=== PATIENT | male | born 1950 | race Caucasian/White ===

== ENCOUNTER 2016-10-25 11:14 | Emergency (ER) | payer OTHER ==
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
[2016-10-25 12:48] VITALS: BP 179/94; PULSE 97; RESP 18; TEMP 97.7
== END 2016-10-25 13:04 | disposition home or self-care (01) ==
LOC: EC 11:14
DX: S00.12XA Contusion of left eyelid and periocular area, initial encounter (principal); S09.90XA Unspecified injury of head, initial encounter; H11.32 Conjunctival hemorrhage, left eye; I10 Essential (primary) hypertension; N40.0 Benign prostatic hyperplasia without lower urinary tract symptoms; F17.200 Nicotine dependence, unspecified, uncomplicated; Y09 Assault by unspecified means; Z86.14 Personal history of Methicillin resistant Staphylococcus aureus infection; Z79.899 Other long term (current) drug therapy; Z88.0 Allergy status to penicillin; Z87.442 Personal history of urinary calculi
CPT/HCPCS: 70450; 70486; 99284

== ENCOUNTER 2016-12-25 09:25 | Observation (INO) | payer OTHER ==
[2016-12-25] MEDS ORDERED: PANTOPRAZOLE 40 MG/10 ML VIAL IVP STA (10:12)
[2016-12-25] MEDS ORDERED: SODIUM CHLORIDE 0.9% 1,000 ML IV STA (10:12)
--- NOTE | 2016-12-25 10:16 | ED ---
GI Bleed HPI - General Chief complaint: GI Bleed Stated complaint: Rectal Bleed Time Seen by Provider: 12/25/16 10:00 Source: patient, RN notes reviewed Mode of arrival: ambulatory Limitations: no limitations - History of Present Illness Initial comments: This is a 66-year-old male with a history of diverticulitis in the past who states he had the onset this morning of 6 episodes of what he believes to be dark red bloody bowel movements. States he was recently constipated took some laxative and had a small amount of blood after that this is earlier in the week. He complains of nonspecific abdominal pain he does have a urinary catheter in his he does have prostatism and has had a catheter in for about a month she's not sure if this is related or not. He denies any overt lightheadedness and shortness of breath dizziness. He was concerned with the amount of blood however that he was passing. No history of ulcers no blood thinners. No other complaints MD complaint: gross hematochezia - Related Data Home Medications Medication Instructions Recorded Confirmed Acetaminophen Tab [Tylenol Tab] 500 mg PO Q6H PRN 10/25/16 12/25/16 Tamsulosin HCl [Flomax] 0.4 mg PO HS 10/25/16 12/25/16 Lisinopril [Zestril] 10 mg PO HS 12/25/16 12/25/16 Allergies Allergy/AdvReac Type Severity Reaction Status Date / Time Penicillins Allergy Unknown Verified 12/25/16 10:57 Childhood Review of Systems ROS Statement: Those systems with pertinent positive or pertinent negative responses have been documented in the HPI. ROS Other: All systems not noted in ROS Statement are negative. Past Medical History Past Medical History: Hypertension, Prostate Disorder, Renal Disease Additional Past Medical History / Comment(s): nephrolithiasis, BPH, chronic back pain, DDD, heniated discs. History of Any Multi-Drug Resistant Organisms: MRSA Date of last positivie culture/infection: 03/15/16 MDRO Source:: right first finger Past Surgical History: Tonsillectomy Additional Past Surgical History / Comment(s): colonoscopy with benign polypectomies, TESTICLE SURGERY AT AGE 14 Past Anesthesia/Blood Transfusion Reactions: No Reported Reaction Past Psychological History: No Psychological Hx Reported Additional Psychological History / Comment(s): Pt resides with a friend. He is independent. He drives. 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 Pet cat. Did not relate to children. Medical marijuana use. Denies injection drug use or other recreational drug use. No travel history Smoking Status: Current some day smoker Past Alcohol Use History: None Reported Additional Past Alcohol Use History / Comment(s): Pt states he casually smoked yrs ago. Past Drug Use History: Marijuana Additional Drug Use History / Comment(s): Pt states he has a medical marijuana card. He smokes marijuana in a pipe daily for pain control. - Past Family History Father Family Medical History: Cancer, Coronary Artery Disease (CAD) Additional Family Medical History / Comment(s): Father is 87 yrs old. Mother Family Medical History: Liver Disease Additional Family Medical History / Comment(s): Mother at 56 yrs of age from liver disease which pt believes was cirrhosis. General Exam - General Exam Comments Initial Comments: This is a well-developed well-nourished awake alert oriented 3 male Limitations: no limitations General appearance: alert, in no apparent distress Head exam: Present: atraumatic, normocephalic, normal inspection Eye exam: Present: normal appearance, PERRL, EOMI. Absent: scleral icterus, conjunctival injection, periorbital swelling ENT exam: Present: normal exam, mucous membranes moist Neck exam: Present: normal inspection. Absent: tenderness, meningismus, lymphadenopathy Respiratory exam: Present: normal lung sounds bilaterally. Absent: respiratory distress, wheezes, rales, rhonchi, stridor Cardiovascular Exam: Present: regular rate, normal rhythm, normal heart sounds. Absent: systolic murmur, diastolic murmur, rubs, gallop, clicks GI/Abdominal exam: Present: soft, tenderness (Right lower quadrant tenderness palpation no definite guarding or rebound), normal bowel sounds. Absent: distended, guarding, rebound, rigid Extremities exam: Present: normal inspection, full ROM, normal capillary refill. Absent: tenderness, pedal edema, joint swelling, calf tenderness Back exam: Present: normal inspection Neurological exam: Present: alert, oriented X3, CN II-XII intact Psychiatric exam: Present: normal affect, normal mood Skin exam: Present: warm, dry, intact, normal color. Absent: rash Course Vital Signs 12/25/16 12/25/16 09:50 11:43 Temperature 99.4 F Pulse Rate 95 74 Respiratory 20 16 Rate Blood Pressure 154/92 159/99 O2 Sat by Pulse 98 98 Oximetry - Reevaluation(s) Reevaluation #1: 12/25/16 14:52 I did perform a rectal exam with female nurse present. Patient does have heme positive blood from below. Medical Decision Making - Medical Decision Making I did discuss findings with the patient the presentation blood per rectum is likely secondary to colitis he does have evidence of prostate cancer the patient will be admitted for inpatient evaluation and monitoring. - Lab Data Result diagrams: 12/25/16 10:38 12/25/16 10:38 Lab Results 12/25/16 12/25/16 12/25/16 Range/Units 10:38 10:38 10:38 WBC 5.8 (3.8-10.6) k/uL RBC 4.95 (4.30-5.90) m/uL Hgb 16.5 (13.0-17.5) gm/dL Hct 46.4 (39.0-53.0) % MCV 93.7 (80.0-100.0) fL MCH 33.4 (25.0-35.0) pg MCHC 35.6 (31.0-37.0) g/dL RDW 12.5 (11.5-15.5) % Plt Count 228 (150-450) k/uL Neutrophils % 53 % Lymphocytes % 36 % Monocytes % 7 % Eosinophils % 1 % Basophils % 1 % Neutrophils # 3.0 (1.3-7.7) k/uL Lymphocytes # 2.1 (1.0-4.8) k/uL Monocytes # 0.4 (0-1.0) k/uL Eosinophils # 0.1 (0-0.7) k/uL Basophils # 0.1 (0-0.2) k/uL PT (9.0-12.0) sec INR (<1.1) APTT (22.0-30.0) sec Sodium 144 (137-145) mmol/L Potassium 4.5 (3.5-5.1) mmol/L Chloride 106 (98-107) mmol/L Carbon Dioxide 25 (22-30) mmol/L Anion Gap 13 mmol/L BUN 14 (9-20) mg/dL Creatinine 0.82 (0.66-1.25) mg/dL Est GFR (MDRD) Af Amer >60 (>60 ml/min/1.73 sqM) Est GFR (MDRD) Non-Af >60 (>60 ml/min/1.73 sqM) Glucose 98 (74-99) mg/dL Calcium 9.8 (8.4-10.2) mg/dL Magnesium 2.1 (1.6-2.3) mg/dL Total Bilirubin 0.7 (0.2-1.3) mg/dL AST 19 (17-59) U/L ALT 25 (21-72) U/L Alkaline Phosphatase 86 (38-126) U/L Total Creatine Kinase 96 (55-170) U/L CK-MB (CK-2) 0.9 (0.0-2.4) ng/mL CK-MB (CK-2) Rel Index 0.9 Troponin I <0.012 (0.000-0.034) ng/mL Total Protein 7.6 (6.3-8.2) g/dL Albumin 4.5 (3.5-5.0) g/dL Lipase 416 H (23-300) U/L Stool Occult Blood (Negative) Blood Type Blood Type Confirm Blood Type Recheck Antibody Screen Spec Expiration Date 12/25/16 12/25/16 12/25/16 Range/Units 10:38 10:38 12:23 WBC (3.8-10.6) k/uL RBC (4.30-5.90) m/uL Hgb (13.0-17.5) gm/dL Hct (39.0-53.0) % MCV (80.0-100.0) fL MCH (25.0-35.0) pg MCHC (31.0-37.0) g/dL RDW (11.5-15.5) % Plt Count (150-450) k/uL Neutrophils % % Lymphocytes % % Monocytes % % Eosinophils % % Basophils % % Neutrophils # (1.3-7.7) k/uL Lymphocytes # (1.0-4.8) k/uL Monocytes # (0-1.0) k/uL Eosinophils # (0-0.7) k/uL Basophils # (0-0.2) k/uL PT 10.3 (9.0-12.0) sec INR 1.0 (<1.1) APTT 25.2 (22.0-30.0) sec Sodium (137-145) mmol/L Potassium (3.5-5.1) mmol/L Chloride (98-107) mmol/L Carbon Dioxide (22-30) mmol/L Anion Gap mmol/L BUN (9-20) mg/dL Creatinine (0.66-1.25) mg/dL Est GFR (MDRD) Af Amer (>60 ml/min/1.73 sqM) Est GFR (MDRD) Non-Af (>60 ml/min/1.73 sqM) Glucose (74-99) mg/dL Calcium (8.4-10.2) mg/dL Magnesium (1.6-2.3) mg/dL Total Bilirubin (0.2-1.3) mg/dL AST (17-59) U/L ALT (21-72) U/L Alkaline Phosphatase (38-126) U/L Total Creatine Kinase (55-170) U/L CK-MB (CK-2) (0.0-2.4) ng/mL CK-MB (CK-2) Rel Index Troponin I (0.000-0.034) ng/mL Total Protein (6.3-8.2) g/dL Albumin (3.5-5.0) g/dL Lipase (23-300) U/L Stool Occult Blood Positive (Negative) Blood Type B Positive Blood Type Confirm Blood Type Recheck CABO Indicated Antibody Screen NEGATIVE Spec Expiration Date 12/28/2016 - 233712/25/16 Range/Units 13:50 WBC (3.8-10.6) k/uL RBC (4.30-5.90) m/uL Hgb (13.0-17.5) gm/dL Hct (39.0-53.0) % MCV (80.0-100.0) fL MCH (25.0-35.0) pg MCHC (31.0-37.0) g/dL RDW (11.5-15.5) % Plt Count (150-450) k/uL Neutrophils % % Lymphocytes % % Monocytes % % Eosinophils % % Basophils % % Neutrophils # (1.3-7.7) k/uL Lymphocytes # (1.0-4.8) k/uL Monocytes # (0-1.0) k/uL Eosinophils # (0-0.7) k/uL Basophils # (0-0.2) k/uL PT (9.0-12.0) sec INR (<1.1) APTT (22.0-30.0) sec Sodium (137-145) mmol/L Potassium (3.5-5.1) mmol/L Chloride (98-107) mmol/L Carbon Dioxide (22-30) mmol/L Anion Gap mmol/L BUN (9-20) mg/dL Creatinine (0.66-1.25) mg/dL Est GFR (MDRD) Af Amer (>60 ml/min/1.73 sqM) Est GFR (MDRD) Non-Af (>60 ml/min/1.73 sqM) Glucose (74-99) mg/dL Calcium (8.4-10.2) mg/dL Magnesium (1.6-2.3) mg/dL Total Bilirubin (0.2-1.3) mg/dL AST (17-59) U/L ALT (21-72) U/L Alkaline Phosphatase (38-126) U/L Total Creatine Kinase (55-170) U/L CK-MB (CK-2) (0.0-2.4) ng/mL CK-MB (CK-2) Rel Index Troponin I (0.000-0.034) ng/mL Total Protein (6.3-8.2) g/dL Albumin (3.5-5.0) g/dL Lipase (23-300) U/L Stool Occult Blood (Negative) Blood Type Blood Type Confirm B Positive Blood Type Recheck Antibody Screen Spec Expiration Date - Radiology Data Radiology results: report reviewed (The sigmoid is thickened), image reviewed Disposition Clinical Impression: Hematochezia, GI bleed, Prostate cancer, Abdominal pain, Colitis Disposition: ADMITTED IP TO THIS [facility] Condition: Stable Referrals: None,Stated [Primary Care Provider] - 1-2 days
[2016-12-25 11:04] LABS: Basophils # (A) 0.1 k/uL (0-0.2); Basophils % (A) 1 %; CH 33.3; CHCM 35.7; Eosinophils # (A) 0.1 k/uL (0-0.7); Eosinophils % (A) 1 %; HCT 46.4 % (39.0-53.0); HDW 2.58; HGB 16.5 gm/dL (13.0-17.5); Luc # (Auto) 0.16; Luc % (Auto) 3; Lymphocytes # (A) 2.1 k/uL (1.0-4.8); Lymphocytes % (A) 36 %; MCH 33.4 pg (25.0-35.0); MCHC 35.6 g/dL (31.0-37.0); MCV 93.7 fL (80.0-100.0); Monocytes # (A) 0.4 k/uL (0-1.0); Monocytes % (A) 7 %; Neutrophils % (A) 53 %; RBC 4.95 m/uL (4.30-5.90); RDW 12.5 % (11.5-15.5); WBC 5.8 k/uL (3.8-10.6); WBC (Perox) 5.38
[2016-12-25 11:06] LABS: ALT 25 U/L (21-72); AST 19 U/L (17-59); Alkaline Phosphatase 86 U/L (38-126); Anion Gap 13 mmol/L; Blood Urea Nitrogen 14 mg/dL (9-20); Calcium 9.8 mg/dL (8.4-10.2); Carbon Dioxide 25 mmol/L (22-30); Chloride 106 mmol/L (98-107); Glucose 98 mg/dL (74-99); Magnesium 2.1 mg/dL (1.6-2.3); Non-African American GFR(MDRD) >60 (>60 ml/min/1.73 sqM); Potassium 4.5 mmol/L (3.5-5.1); Sodium 144 mmol/L (137-145); Total Bilirubin 0.7 mg/dL (0.2-1.3); Total Protein 7.6 g/dL (6.3-8.2)
[2016-12-25 11:16] LABS: Partial Thromboplastin Time 25.2 sec (22.0-30.0); Prothrombin Time 10.3 sec (9.0-12.0)
[2016-12-25 11:17] LABS: Creatine Kinase 96 U/L (55-170)
--- NOTE | 2016-12-25 11:20 | XR ---
EXAMINATION TYPE: XR abdomen acute w cxr DATE OF EXAM: 12/25/2016 11:08 AM COMPARISON: NONE HISTORY: Rectal bleeding TECHNIQUE: Two views of the abdomen and one view of the chest are obtained. FINDINGS: There 3 calcifications overlying the left kidney the largest measuring 5 mm. 4 calcifications overlyi ng the right kidney the largest measuring 3 mm. Hypertrophic change lower lumbar spine. Nonspecific calcifications in the pelvis. Calcification overlying the right sacrum is nonspecific. The bowel gas pattern is unremarkable as there is air throughout nondilated small and large bowel. No sizeable air fluid levels. IMPRESSION: Bilateral nephrolithiasis
[2016-12-25 11:30] LABS: Creatine Kinase MB 0.9 ng/mL (0.0-2.4); Troponin I <0.012 ng/mL (0.000-0.034)
--- NOTE | 2016-12-25 13:23 | CT ---
EXAMINATION TYPE: CT abdomen pelvis wo con DATE OF EXAM: 12/25/2016 12:48 PM COMPARISON: 03/26/2016 HISTORY: 66-year-old male Rectal bleeding and generalized pain CT DLP: 600.6 mGycm. Automated exposure control for dose reduction was used. TECHNIQUE: Contiguous axial scanning of the abdomen and pelvis without IV contrast. Coronal and sagit kyle reconstructions performed. FINDINGS: The heart is normal size without pericardial effusion. Coronary vessel calcifications are present and are remarkable for coronary artery disease. Some strandy atelectasis or scarring in the inferior lingula. Lung bases otherwise clear without pleu ral effusion. Stable 2.8 cm cyst right hepatic dome. Gallbladder, adrenal glands, spleen, and pancreas show no gross abnormality. Cysts are redemonstrated within both kidneys, largest measuring 5.8 cm on the right and 3.1 cm on the left. Also redemonstrated bilateral nonobstructive nephrolithiasis with numerous calculi measuring u p to 4 to 5 mm on the right and up to 6 mm on the left. No hydronephrosis or suspicious calculus in t he urinary tract. No dilated small bowel, free fluid, or free air. No mesenteric or retroperitoneal lymphadenopathy. Tiny fatty umbilical hernia. Normal appendix. There is mild stool burden with left hemicolonic diverticulosis. There is some mild wall thickening of the mid sigmoid colon similar prior without any surrounding inflammatory change, s uspected chronic diverticulitis. There is moderate wall thickening of the collapsed bladder with mild perivesicular fat stranding. Dep endent calculi are present in the bladder lumen measuring up to 1 cm. Zayas catheter is in place. The Zayas catheter tubing is displaced towards the right along the prostatic urethra pelvic phleboliths. 8 mm nodularity along the left obturator chain was present previously and is unchanged. No greater th an 1 cm pelvic lymph node. However, a 1 cm right iliac chain lymph node axial image 117 is larger fro m prior where it measured 6 mm. Bones: Mild degenerative changes at the hips. Additional degenerative changes at the SI joints and lo wer lumbar spine. No osseous destructive process. IMPRESSION: 1. Prostate cancer is highly suspected with mass effect and rightward deviation of the Zayas cathete r as it courses along the prostatic urethra. 2. Nonspecific 8 mm nodular density along the left obturator chain was present previously and is sta ble. However, a 1 cm right iliac chain lymph node is larger compared to 6 mm, previously. 3. Stable sigmoid diverticulosis with mild wall thickening of the mid sigmoid colon. No significant surrounding inflammation. Findings can be seen with chronic diverticulitis. 4. Bilateral nephrolithiasis measuring up to 6 mm as well as bilateral renal cysts. Additional bladd er calculi measuring up to 1 cm. 5. Circumferential wall thickening of the bladder could represent cystitis or bladder wall hypertrop hy from chronic outlet obstruction. 6. 3 cm AAA.
[2016-12-25] MEDS ORDERED: NALOXONE 0.4 MG/ML 1 ML VIAL IV PRN (14:54)
[2016-12-25] MEDS: SODIUM CHLORIDE 0.9% 1,000 ML IV SCH (17:47)
[2016-12-25] MEDS: HYDROmorphone 1 MG/ML 1 ML SYRINGE IV PRN (21:07)
[2016-12-25] MEDS: PANTOPRAZOLE 40 MG/10 ML VIAL IV SCH (21:08)
[2016-12-25] MEDS ORDERED: TEMAZEPAM 15 MG CAP PO PRN (21:35)
[2016-12-25] MEDS ORDERED: ALPRAZolam 0.25 MG TAB PO PRN (21:35)
[2016-12-25] MEDS ORDERED: HYDROcodone/APAP 5-325MG 1 EACH TAB PO PRN (21:35)
[2016-12-25] MEDS: LISINOPRIL 10 MG TAB PO SCH (23:04)
[2016-12-25] MEDS: TAMSULOSIN 0.4 MG CAP.ER.24H PO SCH (23:04)
[2016-12-25 23:13] LABS: Appearance,Urine Cloudy (Clear); Bacteria,Urine Occasional /hpf; Bilirubin,Urine Negative (Negative); Glucose,Urine (UA) Negative (Negative); Ketones,Urine Negative (Negative); Leukocyte Esterase,Urine Large (Negative); Nitrite,Urine Positive (Negative); PH, Urine 6.5 (5.0-8.0); Particle Count 14215; Protein,Urine Negative (Negative); RBC,Urine 2 /hpf (0-5); Specific Gravity,Urine 1.009 (1.001-1.035); UA Billing (MACRO vs. MICRO) MICRO; Urobilinogen,Urine <2.0 mg/dL (<2.0); WBC,Urine 87 /hpf (0-5)
--- NOTE | 2016-12-26 05:26 | HP ---
DATE OF ADMISSION: CHIEF COMPLAINT: Gastrointestinal bleed. HISTORY OF PRESENT ILLNESS: This 66-year-old gentleman with a past medical history of multiple medical problems including hypertension, history of prostate disorder, history of BPH, history of MRSA being followed by no primary physician in outpatient setting, was noted to have GI bleed since last night. The patient had at least 6 episodes of dark maroon colored bowel movements and recently was constipated and took some laxatives. The patient also had some vague abdominal discomfort in the lower part of the abdomen and the patient came to [facility] and was admitted for further evaluation and treatment. There is no history of any fever, rigor, or chills. No history of headache, loss of consciousness or seizures. The patient also had a CAT scan of the abdomen showed possible prostate cancer with mass effect and as well as nodular density in left obturator chain, stable sigmoid diverticulosis, bilateral nephrolithiasis and circumferential thickening of the bladder also and a 3 cm abdominal aortic aneurysm. The patient attends a free clinic in [place]. PAST MEDICAL HISTORY: History of hypertension, history of prostate disorder, BPH, history DJD, MRSA abscess. Medications prior to admission home medications are: 1. Tylenol 500 mg q.6 p.r.n. 2. Flomax 0.4 q.h.s. 3. Zestril 10 mg p.o. q.h.s. The allergies are PENICILLIN. FAMILY HISTORY: History of cancer, CAD. SOCIAL HISTORY: History of THC, history of smoking . Patient . REVIEW OF SYSTEMS: ENT: No history of diminished hearing or vision. CARDIOVASCULAR: No angina or palpitations. RESPIRATORY: No cough. GI: As mentioned earlier. : As mentioned earlier. NERVOUS SYSTEM: No numbness or weakness. ALLERGY/IMMUNOLOGY: No asthma or hayfever. MUSCULOSKELETAL: As mentioned earlier. HEMATOLOGY/ONCOLOGY: No history of anemia. ENDOCRINE: No history of diabetes mellitus or hypothyroidism. CONSTITUTIONAL: As mentioned earlier. DERMATOLOGY: Negative. RHEUMATOLOGY: Negative. PSYCHIATRY: As mentioned earlier. PHYSICAL EXAMINATION: The patient is alert and oriented x3. Pulse is 77, blood pressure 161/88, respirations 18, temperature 97 degrees and pulse ox is 99% on room air. HEENT: Conjunctivae normal. Oral mucosa moist. NECK: No jugular venous distention. No carotid bruit. No lymph node enlargement. CARDIOVASCULAR: S1 and S2, muffled. No S3, no S4. RESPIRATORY: Breath sounds diminished at the bases. No rhonchi, no crackles. ABDOMEN: Soft, nontender. No mass palpable. LEGS: No edema, no swelling. NERVOUS SYSTEM: Higher function as mentioned. Moves all 4 limbs. No focal motor or sensory deficits. LYMPHATICS: No lymphadenopathy of neck, axillae or groin. SKIN: No ulcers, rashes or bleeding. LABS: WBC 5.8, hemoglobin 16.5. Amylase 113 and lipase 416. ASSESSMENT: 1. Acute lower gastrointestinal bleeding for evaluation. 2. Rule out prostate cancer. 3. Increased amylase, lipase, possible mild acute pancreatitis. 4. Sigmoid diverticulosis on the CAT scan. 5. Bilateral nephrolithiasis on the CAT scan. 6. A 3 cm abdominal aortic aneurysm on the CAT scan. 7. Hypertension, essential. 8. History of prostate disorder. 9. History of nephrolithiasis. 10. History of chronic back pain, degenerative joint disease. 11. History of methicillin-resistant Staphylococcus aureus and abscess. 12. History of nicotine dependence. 13. History of THC, medical marijuana. 14. FULL CODE. RECOMMENDATIONS AND DISCUSSION: In this 66-year-old gentleman who presented with multiple complex medical issues, we will monitor the patient closely. Continue the current medications. Continue symptomatic treatment. Will monitor H&H closely and watch for any significant bleeding monitor and if the hemoglobin is less will arrange transfusion. Otherwise, gastroenterology consultation for possible colonoscopy. Urology consultation for evaluation of the prostate cancer. Prognosis guarded because of multiple complex medical issues. I would recommend to resume the home medications and further recommendations to follow. MTDD
--- NOTE | 2016-12-26 06:35 | P.GSCN ---
History of Present Illness Consult date: 12/25/16 Reason for Consult: Elevated PSA Requesting physician: Jeffrey Helms History of present illness: The patient is a 65-year-old white male who has taken tamsulosin for quite some time for LUTS. He was initially seen by me in late November with urinary retention. He failed a voiding trial, and a CMG has shown detrusor recompensation. The Zayas remains in place. EMMA reveals the prostate to be irregular and nodular, and his PSA level is 86.6. This is highly suggestive of locally advanced prostate cancer. He is now admitted with bloody stools. Review of Systems - Cardiovascular Reports high blood pressure, Denies chest pain - Respiratory Denies dyspnea - Gastrointestinal Reports hematochezia - Genitourinary Reports urinary retention - Musculoskeletal Reports low back pain Past Medical History Past Medical History: Hypertension, Prostate Disorder Additional Past Medical History / Comment(s): nephrolithiasis, BPH, chronic back pain, DDD, heniated discs ,03/15/16 RT THUMB ABCESS(MRSA).UTI, "IDC PLACED " History of Any Multi-Drug Resistant Organisms: MRSA Year Discovered:: 03/15/16 MDRO Source:: right first finger Past Surgical History: Tonsillectomy Additional Past Surgical History / Comment(s): colonoscopy with benign polypectomies, TESTICLE SURGERY AT AGE 14, i&d/DEBRIDMENT OF RT THUMB ABCESS, PICC LINE SINCE REMOVED Past Anesthesia/Blood Transfusion Reactions: No Reported Reaction Past Psychological History: No Psychological Hx Reported Additional Psychological History / Comment(s): Pt is legally but ,resides with a friend. He is independent. He drives. 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 Pet cat. Did not relate to children. Medical marijuana use. Denies injection drug use or other recreational drug use. No travel history Smoking Status: Current some day smoker Past Alcohol Use History: None Reported Additional Past Alcohol Use History / Comment(s): Pt smoked cig cassually from age 32 to 42. smokes marijuana -last used this am Past Drug Use History: Marijuana Additional Drug Use History / Comment(s): Pt states he has a medical marijuana card. He smokes marijuana in a pipe daily for pain control. - Past Family History Father Family Medical History: Cancer, Coronary Artery Disease (CAD) Additional Family Medical History / Comment(s): Father is 87 yrs old. Mother Family Medical History: Liver Disease Additional Family Medical History / Comment(s): Mother at 56 yrs of age from liver disease which pt believes was cirrhosis. Medications and Allergies Home Medications Medication Instructions Recorded Confirmed Type Acetaminophen Tab [Tylenol Tab] 500 mg PO Q6H PRN 10/25/16 12/25/16 History Tamsulosin HCl [Flomax] 0.4 mg PO HS 10/25/16 12/25/16 History Lisinopril [Zestril] 10 mg PO HS 12/25/16 12/25/16 History Allergies Allergy/AdvReac Type Severity Reaction Status Date / Time Penicillins Allergy Unknown Verified 12/25/16 10:57 Childhood Surgical - Exam Vital Signs Temp Pulse Resp BP Pulse Ox 99.4 F 95 20 154/92 98 12/25/16 09:50 12/25/16 09:50 12/25/16 09:50 12/25/16 09:50 12/25/16 09:50 - General well developed, well nourished, no distress - Abdomen Abdomen: soft, tender (Suprapubic tenderness), no masses, no guarding, no rigid , no rebound - Genitourinary normal penis with no external lesions, testicles non-tender - Psychiatric oriented to time, oriented to person, oriented to place, speech is normal, memory intact Results - Labs 12/25/16 10:38 12/25/16 10:38 Abnormal Lab Results - Last 24 Hours (Table) 12/25/16 12/25/16 Range/Units 10:38 10:38 Amylase 113 H (30-110) U/L Lipase 416 H (23-300) U/L Diabetes panel 12/25/16 Range/Units 10:38 Sodium 144 (137-145) mmol/L Potassium 4.5 (3.5-5.1) mmol/L Chloride 106 (98-107) mmol/L Carbon Dioxide 25 (22-30) mmol/L BUN 14 (9-20) mg/dL Creatinine 0.82 (0.66-1.25) mg/dL Glucose 98 (74-99) mg/dL Calcium 9.8 (8.4-10.2) mg/dL AST 19 (17-59) U/L ALT 25 (21-72) U/L Alkaline Phosphatase 86 (38-126) U/L Total Protein 7.6 (6.3-8.2) g/dL Albumin 4.5 (3.5-5.0) g/dL Calcium panel 12/25/16 Range/Units 10:38 Calcium 9.8 (8.4-10.2) mg/dL Albumin 4.5 (3.5-5.0) g/dL Pituitary panel 12/25/16 Range/Units 10:38 Sodium 144 (137-145) mmol/L Potassium 4.5 (3.5-5.1) mmol/L Chloride 106 (98-107) mmol/L Carbon Dioxide 25 (22-30) mmol/L BUN 14 (9-20) mg/dL Creatinine 0.82 (0.66-1.25) mg/dL Glucose 98 (74-99) mg/dL Calcium 9.8 (8.4-10.2) mg/dL Adrenal panel 12/25/16 Range/Units 10:38 Sodium 144 (137-145) mmol/L Potassium 4.5 (3.5-5.1) mmol/L Chloride 106 (98-107) mmol/L Carbon Dioxide 25 (22-30) mmol/L BUN 14 (9-20) mg/dL Creatinine 0.82 (0.66-1.25) mg/dL Glucose 98 (74-99) mg/dL Calcium 9.8 (8.4-10.2) mg/dL Total Bilirubin 0.7 (0.2-1.3) mg/dL AST 19 (17-59) U/L ALT 25 (21-72) U/L Alkaline Phosphatase 86 (38-126) U/L Total Protein 7.6 (6.3-8.2) g/dL Albumin 4.5 (3.5-5.0) g/dL Assessment and Plan (1) Elevated prostate specific antigen (PSA) Status: Acute Plan: The patient is a 66-year-old white male who recently presented with urinary retention. EMMA revealed the prostate to be hard and nodular, and his PSA level was found to be 86.6. He is being scheduled to undergo prostate ultrasound with biopsies in the office, but I would suggest that this be performed during this hospitalization if possible to expedite the anticipated diagnosis of prostate cancer. If he is confirmed to have prostate cancer, a CT scan of the pelvis and a bone scan will be obtained for staging purposes.
[2016-12-26] MEDS: HYDROmorphone 1 MG/ML 1 ML SYRINGE IV PRN ×3 (06:47→23:27)
[2016-12-26] MEDS: PANTOPRAZOLE 40 MG/10 ML VIAL IV SCH ×2 (07:46→19:52)
[2016-12-26] MEDS: SODIUM CHLORIDE 0.9% 1,000 ML IV SCH (07:46)
--- NOTE | 2016-12-26 09:53 | P.CONS ---
History of Present Illness - Reason for Consult Consult date: 12/26/16 Rectal bleeding GI bleed Requesting physician: Jeffrey Helms - History of Present Illness 66-year-old gentleman with a history of urinary retention with indwelling catheter presents with elevated PSA (86.6 )and painless rectal bleeding. Patient is been evaluated by urology with suspicion for locally advanced prostate carcinoma with recommendations for prostate ultrasound/biopsy. CT abdomen and pelvis reported highly suspected prostate cancer with mass effect rightward deviation along the prostatic urethra. Stable sigmoid diverticulosis no significant surrounding inflammation. Mild stool burden. 3 cm AAA. Hemoglobin 16.5. White count 5.8. Platelet 228. INR 1.0. BUN 14 creatinine 0.8. Stool occult blood positive. Patient has been more constipated over the last 4-6 weeks since his indwelling urinary catheter has been placed. He normally has a bowel movement daily but was having more difficulty having a daily bowel movement sometimes it would extend every 2 days. He took a laxative over the weekend with some response however within 24 hours he passed several looser bowel movements that were dark burgundy-colored in nature. Bleeding was painless. No history of GI bleeding. Denies hematemesis, ground emesis. No NSAID or aspirin usage. Last colonoscopy to his memory was about 7 years ago with findings of diverticular disease. Review of Systems Constitutional: Denies fever, chills, sweats, weight gain, or loss. HEENT: Negative for migraines, blurred vision or loss, earaches, drainage, tinnitus, oral mucosal lesions, dysphagia, or odynophagia. Cardiac: Hypertension. Negative for chest pain, arrhythmias, or palpitation. Respiratory: Negative for shortness of breath, hemoptysis, cough, or sputum production. Gastrointestinal: See HPI for pertinent findings. Genitourinary: BPH. Denies hematuria or penile discharge. Musculoskeletal: Negative for muscle aches, swelling, arthritis, and arthralgias. Neurologic: Negative for stroke or TIA. Endocrine: Negative for thyroid problems. Skin: MRSA. Negative for rash or itching. Psychiatric: Negative history for depression and anxiety All systems: negative (See HPI) Past Medical History Past Medical History: Hypertension, Prostate Disorder Additional Past Medical History / Comment(s): nephrolithiasis, BPH, chronic back pain, DDD, heniated discs ,03/15/16 RT THUMB ABCESS(MRSA).UTI, "IDC PLACED 4 -23-17" History of Any Multi-Drug Resistant Organisms: MRSA Year Discovered:: 03/15/16 MDRO Source:: right first finger Past Surgical History: Tonsillectomy Additional Past Surgical History / Comment(s): colonoscopy with benign polypectomies, TESTICLE SURGERY AT AGE 14, i&d/DEBRIDMENT OF RT THUMB ABCESS, PICC LINE SINCE REMOVED Past Anesthesia/Blood Transfusion Reactions: No Reported Reaction Past Psychological History: No Psychological Hx Reported Additional Psychological History / Comment(s): Pt is legally but ,resides with a friend. He is independent. He drives. 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 Pet cat. Did not relate to children. Medical marijuana use. Denies injection drug use or other recreational drug use. No travel history Smoking Status: Current some day smoker Past Alcohol Use History: None Reported Additional Past Alcohol Use History / Comment(s): Pt smoked cig cassually from age 32 to 42. smokes marijuana -last used this am Past Drug Use History: Marijuana Additional Drug Use History / Comment(s): Pt states he has a medical marijuana card. He smokes marijuana in a pipe daily for pain control. - Past Family History Father Family Medical History: Cancer, Coronary Artery Disease (CAD) Additional Family Medical History / Comment(s): Father is 87 yrs old. Mother Family Medical History: Liver Disease Additional Family Medical History / Comment(s): Mother at 56 yrs of age from liver disease which pt believes was cirrhosis. Medications and Allergies Home Medications Medication Instructions Recorded Confirmed Type Acetaminophen Tab [Tylenol Tab] 500 mg PO Q6H PRN 10/25/16 12/25/16 History Tamsulosin HCl [Flomax] 0.4 mg PO HS 10/25/16 12/25/16 History Lisinopril [Zestril] 10 mg PO HS 12/25/16 12/25/16 History Allergies Allergy/AdvReac Type Severity Reaction Status Date / Time Penicillins Allergy Unknown Verified 12/25/16 10:57 Childhood Physical Exam Vitals: Vital Signs Temp Pulse Pulse Resp BP BP Pulse Ox 12/26/16 07:00 98.8 F 77 16 136/78 95 12/25/16 23:00 97.4 F L 74 18 120/72 97 12/25/16 15:39 97.0 F L 77 18 161/88 99 12/25/16 15:04 66 18 169/93 96 12/25/16 11:43 74 16 159/99 98 12/25/16 09:50 99.4 F 95 20 154/92 98 Intake and Output 12/25/16 12/26/16 12/26/16 22:59 06:59 14:59 Intake Total 200 Output Total 1000 Balance 200 -1000 Intake: Oral 200 Output: Urine 1000 Other: Voiding Method Indwelling Catheter General appearance: The patient is alert, oriented, in no acute distress. HET: Head is normocephalic and atraumatic. Pupils are equal and reactive. Oropharynx is clear without lesions. Neck: Supple without lymphadenopathy. Trachea midline. Heart: S1 S2. Regular rate and rhythm. Lungs: No crackles or wheezes are heard. Abdomen: Soft, nontender, nondistended with bowel sounds. No peritoneal signs. No palpable organomegaly or masses. Extremities: Normal skin color and turgor. No cyanosis, rash, ulceration, clubbing, or edema. Radial and pedal pulses are 2/4 bilaterally. Zayas with olga lidia urine. Neurological: No focal deficits. Strength and sensation are grossly intact. Results CBC & Chem 7: 12/25/16 10:38 12/25/16 10:38 Labs: Abnormal Lab Results - Last 24 Hours (Table) 12/25/16 12/25/16 12/25/16 Range/Units 10:38 10:38 22:30 Amylase 113 H (30-110) U/L Lipase 416 H (23-300) U/L Urine Blood Small H (Negative) Ur Leukocyte Esterase Large H (Negative) Urine WBC 87 H (0-5) /hpf Urine Bacteria Occasional H (None) /hpf CT scan - abdomen: report reviewed (Reviewed by Dr. Ortiz) Assessment and Plan (1) GI bleed Narrative/Plan: Possible diverticular in nature with history of sigmoid diverticulosis however other pathology such as inflammatory colitis possible ischemic possible underlying malignancy cannot be entirely excluded. Status: Acute (2) Rectal bleeding Status: Acute (3) Elevated prostate specific antigen (PSA) Narrative/Plan: Suspected locally advanced prostate cancer Status: Acute Plan: 1. We'll proceed with colonoscopy evaluation tomorrow. We'll defer to timing of prostate ultrasound/biopsy to medicine and urology. 2. Monitor CBC closely. 3. Clear liquid diet followed by nothing by mouth after midnight. The chief nurse executive has discussed the risks, benefits and alternative therapies for the above-mentioned procedure and for both sedation/analgesia as well as necessary blood product administration, if indicated, as they pertain to this patient. The patient has indicated understanding and acceptance of the risks and procedures discussed. Thank you for this kind referral and the opportunity to participate in the care of your patient. This consultation was discussed with Dr. Ortiz. The impression and plan of care have been directed as dictated.
[2016-12-26 10:39] LABS: Basophils % (A) 1 %; CH 33.2; CHCM 34.2; Eosinophils # (A) 0.1 k/uL (0-0.7); Eosinophils % (A) 1 %; HCT 47.4 % (39.0-53.0); HDW 2.44; HGB 15.5 gm/dL (13.0-17.5); Luc # (Auto) 0.09; Luc % (Auto) 2; Lymphocytes # (A) 1.8 k/uL (1.0-4.8); Lymphocytes % (A) 30 %; MCHC 32.8 g/dL (31.0-37.0); MCV 97.5 fL (80.0-100.0); Mean Platelet Volume 6.8; Monocytes # (A) 0.3 k/uL (0-1.0); Monocytes % (A) 4 %; Neutrophils # (A) 3.7 k/uL (1.3-7.7); Neutrophils % (A) 63 %; RBC 4.86 m/uL (4.30-5.90); RDW 12.7 % (11.5-15.5); WBC 5.9 k/uL (3.8-10.6); WBC (Perox) 5.77
[2016-12-26] MEDS: ACETAMINOPHEN TAB 500 MG TAB PO PRN (10:53)
[2016-12-26 11:02] LABS: Amylase 85 U/L (30-110); Anion Gap 12 mmol/L; Blood Urea Nitrogen 8 mg/dL (9-20); Calcium 9.3 mg/dL (8.4-10.2); Carbon Dioxide 24 mmol/L (22-30); Chloride 106 mmol/L (98-107); Cholesterol 174 mg/dL (<200); Glucose 112 mg/dL (74-99); HDL Cholesterol 31 mg/dL (40-60); Non-African American GFR(MDRD) >60 (>60 ml/min/1.73 sqM); Potassium 4.1 mmol/L (3.5-5.1); Sodium 142 mmol/L (137-145); Triglycerides 175 mg/dL (<150)
[2016-12-26] MEDS: LEVOFLOXACIN 500MG-D5W PMX 500 MG in DEXTROSE/WATER 1 100ML.BAG IVPB SCH (12:44)
[2016-12-26] MEDS ORDERED: PEG 3350-NA SULF,BICARB,CL/KCL 4,000 ML BOTTLE PO ONE (16:00)
[2016-12-26] MEDS: TAMSULOSIN 0.4 MG CAP.ER.24H PO SCH (19:52)
[2016-12-26] MEDS: LISINOPRIL 10 MG TAB PO SCH (19:52)
--- NOTE | 2016-12-26 20:06 | PN ---
DATE OF SERVICE: 12/26/2016 This 66-year-old gentleman admitted to the hospital with lower gastrointestinal bleed is being closely monitored. Colonoscopy planned by gastroenterology. No chest pain. No palpitations. No fever. The patient also had urinary outflow obstruction, possible prostate cancer also. On exam, alert and oriented times three. Pulse 74, blood pressure 123/70. Respiratory rate of 16, temperature 98.4, pulse ox 97% on room air. HEENT: Conjunctivae normal. NECK: No jugular venous distention. CARDIOVASCULAR: S1, S2 muffled. RESPIRATORY: Breath sounds diminished at the bases. No rhonchi. No crackles. ABDOMEN: Soft, mild discomfort in the lower part of the abdomen. LEGS: No edema. No swelling. CENTRAL NERVOUS SYSTEM: No focal deficits. Labs are CBC within normal limits. Glucose 112, triglycerides 175, LDL is 108. Amylase and lipase normal. ASSESSMENT: 1. Acute lower gastrointestinal bleed for evaluation. Rule out diverticulosis or polyps. 2. Rule out prostate cancer. 3. Increased amylase, lipase with possible mild acute pancreatitis, present on admission, improved. 4. Sigmoid diverticulosis on the CAT scans. 5. Bilateral nephrolithiasis on the CT scan. 6. 3 cm abd aneurysm on the CT scan. 7. Hypertension, essential history. 8. History of prostate disorder. 9. History of nephrolithiasis. 10. History of chronic back pain, degenerative joint disease. 11. History of Methicillin-resistant Staph aureus. 12. History of nicotine dependence. 13. History of THC. Medical marijuana. 14. FULL CODE. RECOMMENDATIONS AND DISCUSSION: Recommend to continue the current medications. Continue with monitoring. Symptomatic treatment. Otherwise, at this time, I would recommend follow closely with gastroenterology, and possible colonoscopy. Urology input appreciated. Guarded prognosis. Further recommendations to follow. MTDD
[2016-12-27] MEDS: SODIUM CHLORIDE 0.9% 1,000 ML IV SCH (08:56)
[2016-12-27] MEDS: PANTOPRAZOLE 40 MG/10 ML VIAL IV SCH ×2 (08:56→20:19)
[2016-12-27 10:08] LABS: Basophils % (A) 1 %; CH 32.9; CHCM 34.1; Eosinophils % (A) 1 %; HCT 48.3 % (39.0-53.0); HDW 2.42; Luc # (Auto) 0.14; Luc % (Auto) 2; Lymphocytes # (A) 1.8 k/uL (1.0-4.8); Lymphocytes % (A) 30 %; MCHC 33.1 g/dL (31.0-37.0); MCV 96.6 fL (80.0-100.0); Mean Platelet Volume 6.5; Monocytes # (A) 0.4 k/uL (0-1.0); Monocytes % (A) 6 %; Neutrophils # (A) 3.6 k/uL (1.3-7.7); Neutrophils % (A) 61 %; RDW 12.7 % (11.5-15.5); WBC (Perox) 6.32
[2016-12-27 10:16] LABS: Amylase 83 U/L (30-110); Anion Gap 10 mmol/L; Blood Urea Nitrogen 9 mg/dL (9-20); Calcium 9.4 mg/dL (8.4-10.2); Carbon Dioxide 24 mmol/L (22-30); Chloride 107 mmol/L (98-107); Glucose 93 mg/dL (74-99); Non-African American GFR(MDRD) >60 (>60 ml/min/1.73 sqM); Potassium 4.2 mmol/L (3.5-5.1); Sodium 141 mmol/L (137-145)
[2016-12-27] MEDS: LEVOFLOXACIN 500MG-D5W PMX 500 MG in DEXTROSE/WATER 1 100ML.BAG IVPB SCH (12:12)
[2016-12-27] MEDS ORDERED: HYDROmorphone 1 MG/ML 1 ML SYRINGE IV PRN (12:32)
[2016-12-27] MEDS ORDERED: IV FLUID CONTINUATION 1,000 ML IV ONE (15:09)
[2016-12-27] MEDS ORDERED: PROPOFOL 10 MG/ML 20 ML VIAL IV ONE (15:19)
--- NOTE | 2016-12-27 15:56 | P.PCN ---
Date of Procedure: 12/27/16 Preoperative Diagnosis: Postoperative Diagnosis: Procedure(s) Performed: Procedure: Total colonoscopy. Preoperative diagnosis: Rectal bleeding. Postoperative diagnosis: 1. Colonic diverticulosis, most likely cause of bleeding, with no evidence of active bleeding at this time. 2. Low-grade internal hemorrhoids without bleeding at the time of this exam. 3. No polyps, angiodysplasia or other findings to potentially cause bleeding. Preparation: GoLYTELY prep. Sedation: Was provided by anesthesia. Brief clinical history: The patient is a 66-year-old male with a history of urinary retention with indwelling catheter presents with painless rectal bleeding. Patient is been evaluated by urology with suspicion for locally advanced prostate carcinoma with recommendations for prostate ultrasound/ biopsy. Recent PSA 86.[address] of abdomen and pelvis which reported highly suspected prostate cancer and stable sigmoid diverticulosis no significant surrounding inflammation. Mild stool burden. 3 cm AAA. Hemoglobin 16.5. White count 5.8. Platelet 228. INR 1.0. BUN 14 creatinine 0.8. Stool occult blood positive. Patient has been more constipated over the last 4-6 weeks since his indwelling urinary catheter has been placed. He normally has a bowel movement daily but was having more difficulty having a daily bowel movement sometimes it would extend every 2 days. He took a laxative over the weekend with some response however within 24 hours he passed several looser bowel movements that were dark burgundy-colored in nature. Bleeding was painless. Denies hematemesis or coffee ground emesis. No NSAID or aspirin usage. Last colonoscopy in 2009 with findings of diverticular disease. The details are summarized in the history and physical and dictated consultation. Procedure: With the patient on his left lateral decubitus position and after informed consent and adequate sedation, the perianal area was inspected and it did not show any fissures or fistulas. The prostate was felt enlarged and nodular with irregularity on digital rectal examination. No rectal masses felt. The Olympus CFQ 160L video colonoscope was then inserted in the rectum in the usual fashion and advanced to the cecum. There were multiple diverticular orifices seen scattered along the length of the bowel including the hepatic flexure and right colon with no evidence of acute diverticulitis or strictures. The mucosa appeared healthy. There was no evidence of bleeding at the time of this exam. I retroflexed the endoscope in the rectum before the endoscope was withdrawn. Low-grade internal hemorrhoids were noted but there was no bleeding. The patient tolerated the procedure well. Plan: The patient was reassured. Will allow diet and monitor blood counts. Further plans based on his course. Implants: Indications for Procedure: Operative Findings: Description of Procedure:
[2016-12-27] MEDS: LISINOPRIL 10 MG TAB PO SCH (20:19)
[2016-12-27] MEDS: TAMSULOSIN 0.4 MG CAP.ER.24H PO SCH (20:19)
--- NOTE | 2016-12-27 21:02 | PN ---
DATE OF SERVICE: 12/27/2016 This 66 -year-old gentleman admitted with lower gastrointestinal bleeding is scheduled for colonoscopy tomorrow. No chest. No palpitations. No fever. The patient also a urinary catheter in situ. The patient has significant issues with possible prostate cancer and biopsy report and further evaluation pending at this time. On exam, pulse is 93, blood pressure 141/62, respiratory rate 16, temperature 97 degrees. Pulse ox 97% on 6 L. HEENT: Conjunctivae normal. Oral mucosa moist. NECK: No jugular venous distention. No carotid bruit. No lymph node enlargement. CARDIOVASCULAR: S1, S2 muffled. No S3, no S4. RESPIRATORY: Breath sounds diminished at the bases. No rhonchi. No crackles. ABDOMEN: Soft, nontender. CENTRAL NERVOUS SYSTEM: No focal deficits. Labs at this time shows CBC within normal limits. BNP noted. UA noted. Cultures are negative so far. ASSESSMENT: 1. Acute lower gastrointestinal bleeding rule out diverticulosis or polyps. 2. Rule out prostate cancer. 3. Urinary outlet obstruction on Zayas catheter. 4. Increased amylase, lipase with possible mild acute pancreatitis, present on admission, improved. 5. Sigmoid diverticulosis on the CT scan. 6. Bilateral nephrolithiasis on the CT scan. 7. 3 cm abdominal aneurysm on the CAT scan. 8. Hypertension, essential history. 9. History of prostate disorder. 10. History of nephrolithiasis. 11. History of chronic back pain and degenerative joint disease. 12. History of Methicillin-resistant Staph aureus. 13. History of nicotine dependence. 14. History of THC medical marijuana. 15. FULL CODE. RECOMMENDATIONS AND DISCUSSION: Recommend to continue current medications, continue with monitoring, symptomatic treatment. Otherwise, at this time, I would recommend empiric antibiotics and continue follow with gastroenterology and as well as urology. Further recommendations to follow.
[2016-12-28] MEDS: SODIUM CHLORIDE 0.9% 1,000 ML IV SCH (05:39)
[2016-12-28 07:37] VITALS: BP 150/97; PULSE 94; RESP 14; TEMP 98
[2016-12-28 08:27] LABS: Basophils % (A) 1 %; CH 33.4; CHCM 35.5; Eosinophils # (A) 0.1 k/uL (0-0.7); Eosinophils % (A) 1 %; HCT 47.7 % (39.0-53.0); HDW 2.59; HGB 16.5 gm/dL (13.0-17.5); Luc # (Auto) 0.09; Luc % (Auto) 2; Lymphocytes # (A) 1.6 k/uL (1.0-4.8); Lymphocytes % (A) 27 %; MCH 32.7 pg (25.0-35.0); MCHC 34.7 g/dL (31.0-37.0); MCV 94.5 fL (80.0-100.0); Mean Platelet Volume 6.7; Monocytes # (A) 0.3 k/uL (0-1.0); Monocytes % (A) 6 %; Neutrophils # (A) 3.7 k/uL (1.3-7.7); Neutrophils % (A) 64 %; RBC 5.05 m/uL (4.30-5.90); RDW 12.5 % (11.5-15.5); WBC 5.8 k/uL (3.8-10.6); WBC (Perox) 6.08
[2016-12-28 08:52] LABS: Amylase 113 U/L (30-110); Anion Gap 12 mmol/L; Blood Urea Nitrogen 12 mg/dL (9-20); Calcium 9.4 mg/dL (8.4-10.2); Carbon Dioxide 24 mmol/L (22-30); Chloride 105 mmol/L (98-107); Glucose 100 mg/dL (74-99); Non-African American GFR(MDRD) >60 (>60 ml/min/1.73 sqM); Potassium 4.1 mmol/L (3.5-5.1); Sodium 141 mmol/L (137-145)
[2016-12-28] MEDS: PANTOPRAZOLE 40 MG/10 ML VIAL IV SCH (09:31)
[2016-12-28] MEDS: ACETAMINOPHEN TAB 500 MG TAB PO PRN (12:35)
[2016-12-28] MEDS: LEVOFLOXACIN 500MG-D5W PMX 500 MG in DEXTROSE/WATER 1 100ML.BAG IVPB SCH (12:36)
--- NOTE | 2016-12-29 06:21 | DS ---
DATE OF ADMISSION: 12/25/2016 DATE OF DISCHARGE: 12/28/2016 FINAL DIAGNOSES: 1. Acute lower gastrointestinal bleeding, possibly diverticulosis, status post colonoscopy. 2. Rule out prostate cancer. 3. Urinary outlet obstruction on Zayas catheter. 4. Urinary tract infection. 5. Increased amylase, lipase with possible mild acute pancreatitis, present on admission, improved 6. Sigmoid diverticulitis on the CT scan. 7. Bilateral nephrolithiasis on the CAT scan. 8. 3 cm abdominal aortic aneurysm on the CAT scan. 9. Hypertension, essential.. 10. History of prostate disorder. 11. History of nephrolithiasis. 12. History of chronic back pain, degenerative joint disease. 13. History of Methicillin-resistant Staph aureus. 14. History of nicotine dependence. 15. History of THC and medical marijuana. 16. FULL CODE. DISCHARGE DISPOSITION: The patient will be discharged in a stable condition with guarded prognosis. Discharge cleared by multiple consultants. HISTORY OF PRESENT ILLNESS: This 66-year-old gentleman who presented with a past medical history of multiple medical problems admitted with acute lower gastrointestinal bleeding. Diverticulosis was suspected during the colonoscopy. Patient was treated symptomatically. Patient had urinary outlet obstruction and possibly prostate cancer. Dr. Martinez saw the patient and recommended outpatient follow-up for biopsy and other follow-up otherwise. On exam, vitals are stable. CARDIOVASCULAR: S1, S2. ABDOMEN: Soft. CENTRAL NERVOUS SYSTEM: No focal deficits. Zayas catheter in situ. Hemoglobin 16.5. DISCHARGE ADVICE AND MEDICATIONS: 1. Diet cardiac. 2. Activity limited until follow-up. 3. Follow-up with Dr. Martinez as recommended. 4. Follow up with primary care physician in 2 to 3 days. 5. Follow up with gastroenterology as recommended. 6. Medications: Tylenol 500 q.6 p.r.n. 7. Cipro 500 mg p.o. b.i.d. for 5 days. 8. Union 5 mg q.6 p.r.n. 9. Zestril 10 mg q.h.s. 10. Flomax 0.5 q.h.s. MTDD
== END 2016-12-28 14:09 | disposition home or self-care (01) ==
LOC: EC 09:25 → INTOOBSV 14:54 → 4MS4W 14:54
PROVIDERS: ADMIT Internal Medicine; ATTEND Internal Medicine
DX: K92.1 Melena (principal); K57.32 Diverticulitis of large intestine without perforation or abscess without bleeding; K64.8 Other hemorrhoids; R33.9 Retention of urine, unspecified; K59.00 Constipation, unspecified; I10 Essential (primary) hypertension; G89.29 Other chronic pain; N20.0 Calculus of kidney; N13.8 Other obstructive and reflux uropathy; N40.1 Benign prostatic hyperplasia with lower urinary tract symptoms; Z46.6 Encounter for fitting and adjustment of urinary device; Z88.0 Allergy status to penicillin; Z79.899 Other long term (current) drug therapy; Z86.14 Personal history of Methicillin resistant Staphylococcus aureus infection; F17.200 Nicotine dependence, unspecified, uncomplicated; Z82.49 Family history of ischemic heart disease and other diseases of the circulatory system; I71.4 Abdominal aortic aneurysm, without rupture; N40.3 Nodular prostate with lower urinary tract symptoms; Z87.442 Personal history of urinary calculi; N39.0 Urinary tract infection, site not specified; R74.8 Abnormal levels of other serum enzymes
CPT/HCPCS: 45378; 96376 ×3; 96361 ×3; 96365; 96366; 96375 ×2; 99285; 36415; 86900; 86901; 80061; 80053; 80048 ×3; 82150 ×4; 82550; 82553; 83690 ×4; 83735; 84484; 85025 ×4; 85610; 85730; 86850; 82272; 81001; 87086; 87077; 87186; 74022; 74176; G0378 ×4; J1956 ×3; J1170 ×3; J2704; C9113 ×4; G0121

== ENCOUNTER → 2017-01-21 | Outpatient (CLI) | payer SELFPAY ==
--- NOTE | 2017-01-21 17:48 | NM ---
EXAMINATION TYPE: NM bone scan whole body DATE OF EXAM: 01/21/2017 COMPARISON: NONE HISTORY: Prostate carcinoma Delayed whole-body scanning was performed following the injection of 26.0 mCi Tc 99m MDP. Images acq uired 3.5 hours post injection. FINDINGS: Uptake present within the shoulders, knees, ankles, feet, hands, wrists and spine is likely degenerat lilly. Soft tissue uptake is within normal limits. Zayas catheter is in place. Uptake in the right ante cubital region compatible injection site. There is a focus of uptake present in the sternum which is indeterminate. IMPRESSION: Indeterminate sternal uptake, consider CT through the sternum for better evaluation, metastasis not e xcluded.
== END | disposition home or self-care (01) ==
LOC: RADNMMAIN 10:52
PROVIDERS: ATTEND Urology
DX: C61 Malignant neoplasm of prostate (principal); R94.8 Abnormal results of function studies of other organs and systems; Z88.0 Allergy status to penicillin
CPT/HCPCS: 78306; A9503

== ENCOUNTER → 2017-01-25 | Outpatient (CLI) | payer SELFPAY ==
--- NOTE | 2017-01-25 14:40 | XR ---
EXAMINATION TYPE: XR sternum DATE OF EXAM: 01/25/2017 COMPARISON: Bone scan 01/21/1970 HISTORY: Prostate cancer TECHNIQUE: 2 views of the sternum FINDINGS: Osseous structures intact. No acute fracture. No destructive change. IMPRESSION: 1. No definite osseous abnormality. CT scan would be more sensitive in detecting metastases.
== END ==
LOC: RADXRMAIN 14:17
PROVIDERS: ATTEND Urology
DX: C61 Malignant neoplasm of prostate (principal)
CPT/HCPCS: 71120

== ENCOUNTER 2017-01-26 16:48 | Emergency (ER) | payer OTHER ==
[2017-01-26] MEDS ORDERED: KETOROLAC 30 MG/ML 1 ML VIAL IVP STA ×2 (17:14→19:02)
[2017-01-26] MEDS ORDERED: SODIUM CHLORIDE 0.9% 1,000 ML IV STA ×2 (17:14)
--- NOTE | 2017-01-26 17:18 | ED ---
Fever HPI - General Chief Complaint: Fever Stated Complaint: Chills, poss fever Time Seen by Provider: 01/26/17 17:00 Source: patient, RN notes reviewed Mode of arrival: wheelchair Limitations: no limitations - History of Present Illness Initial Comments: Is a 66-year-old male history of a chronic indwelling catheter for the past 9 weeks history of cancer who presents with complaints of fevers chills body aches and generally not feeling well today. He states he has similar lower bowel pain.Nausea no vomiting. He has also been very constipated he states. Is no other complaints at this time MD Complaint: fever, other - Related Data Home Medications Medication Instructions Recorded Confirmed Acetaminophen Tab [Tylenol] 500 mg PO Q6H PRN 10/25/16 01/26/17 Tamsulosin HCl [Flomax] 0.4 mg PO HS 10/25/16 01/26/17 Lisinopril [Zestril] 10 mg PO HS 12/25/16 01/26/17 HYDROcodone/APAP 5-325MG [[place] 1 - 2 tab PO Q6HR PRN 01/26/17 01/26/17 5-325] Magnesium Hydroxide [Milk of 2,400 mg PO ONCE PRN 01/26/17 01/26/17 Magnesia] Sennosides [Ex-Lax] 30 mg PO BID PRN 01/26/17 01/26/17 Previous Rx's Medication Instructions Recorded Cephalexin [Keflex] 500 mg PO Q6HR #40 cap 01/26/17 Hydrocodone/Acetaminophen [[place] 1 each PO Q6HR PRN #20 tab 01/26/17 5-325] Ibuprofen 800 mg PO Q6HR PRN #20 tablet 01/26/17 Allergies Allergy/AdvReac Type Severity Reaction Status Date / Time Penicillins Allergy Unknown Verified 01/26/17 18:17 Childhood Review of Systems ROS Statement: Those systems with pertinent positive or pertinent negative responses have been documented in the HPI. ROS Other: All systems not noted in ROS Statement are negative. Past Medical History Past Medical History: Hypertension, Prostate Disorder Additional Past Medical History / Comment(s): nephrolithiasis, BPH, chronic back pain, DDD, heniated discs ,03/15/16 RT THUMB ABCESS(MRSA).UTI, "IDC PLACED " History of Any Multi-Drug Resistant Organisms: MRSA Date of last positivie culture/infection: 03/15/16 MDRO Source:: right first finger Past Surgical History: Tonsillectomy Additional Past Surgical History / Comment(s): colonoscopy with benign polypectomies, TESTICLE SURGERY AT AGE 14, i&d/DEBRIDMENT OF RT THUMB ABCESS, PICC LINE SINCE REMOVED Past Anesthesia/Blood Transfusion Reactions: No Reported Reaction Past Psychological History: No Psychological Hx Reported Smoking Status: Former smoker Past Alcohol Use History: None Reported Past Drug Use History: Marijuana - Past Family History Father Family Medical History: Cancer, Coronary Artery Disease (CAD) Additional Family Medical History / Comment(s): Father is 87 yrs old. Mother Family Medical History: Liver Disease Additional Family Medical History / Comment(s): Mother at 56 yrs of age from liver disease which pt believes was cirrhosis. General Exam - General Exam Comments Initial Comments: This is a little pulmonary awake alert oriented 3 male Limitations: no limitations General appearance: anxious Head exam: Present: atraumatic, normocephalic, normal inspection Eye exam: Present: normal appearance, PERRL, EOMI. Absent: scleral icterus, conjunctival injection, periorbital swelling ENT exam: Present: normal exam, mucous membranes moist Neck exam: Present: normal inspection. Absent: tenderness, meningismus, lymphadenopathy Respiratory exam: Present: normal lung sounds bilaterally. Absent: respiratory distress, wheezes, rales, rhonchi, stridor Cardiovascular Exam: Present: normal rhythm, tachycardia GI/Abdominal exam: Present: soft ( no guarding no rebound), tenderness (Mild suprapubic tenderness palpation) exam: Present: other (Zayas catheter is in place urine appears be clear light yellow) Extremities exam: Present: normal inspection, full ROM, normal capillary refill. Absent: tenderness, pedal edema, joint swelling, calf tenderness Back exam: Present: normal inspection Neurological exam: Present: alert, oriented X3, CN II-XII intact Psychiatric exam: Present: normal affect, normal mood Skin exam: Present: warm, dry, intact, normal color. Absent: rash Course Vital Signs 01/26/17 01/26/17 01/26/17 16:50 17:13 18:00 Temperature 101.6 F H 100.9 F H Pulse Rate 112 H 97 Respiratory 18 20 20 Rate Blood Pressure 149/84 139/82 O2 Sat by Pulse 99 98 Oximetry 01/26/17 01/26/17 18:08 19:04 Temperature 101.6 F H 98.6 F Pulse Rate 90 Respiratory 16 Rate Blood Pressure 138/86 O2 Sat by Pulse 96 Oximetry Medical Decision Making - Medical Decision Making Patient showing much improved at this time he'll be discharged on oral antibiotics and pain medication he states he ran out of his pain medication at home. - Lab Data Result diagrams: 01/26/17 17:05 01/26/17 17:05 Lab Results 01/26/17 01/26/17 01/26/17 Range/Units 17:05 17:05 17:05 WBC 13.7 H (3.8-10.6) k/uL RBC 4.99 (4.30-5.90) m/uL Hgb 16.4 (13.0-17.5) gm/dL Hct 47.5 (39.0-53.0) % MCV 95.1 (80.0-100.0) fL MCH 32.9 (25.0-35.0) pg MCHC 34.6 (31.0-37.0) g/dL RDW 13.1 (11.5-15.5) % Plt Count 169 (150-450) k/uL Neutrophils % 84 % Lymphocytes % 8 % Monocytes % 6 % Eosinophils % 0 % Basophils % 0 % Neutrophils # 11.5 H (1.3-7.7) k/uL Lymphocytes # 1.1 (1.0-4.8) k/uL Monocytes # 0.8 (0-1.0) k/uL Eosinophils # 0.1 (0-0.7) k/uL Basophils # 0.0 (0-0.2) k/uL PT (9.0-12.0) sec INR (<1.1) APTT (22.0-30.0) sec Sodium 139 (137-145) mmol/L Potassium 3.9 (3.5-5.1) mmol/L Chloride 105 (98-107) mmol/L Carbon Dioxide 21 L (22-30) mmol/L Anion Gap 13 mmol/L BUN 11 (9-20) mg/dL Creatinine 0.80 (0.66-1.25) mg/dL Est GFR (MDRD) Af Amer >60 (>60 ml/min/1.73 sqM) Est GFR (MDRD) Non-Af >60 (>60 ml/min/1.73 sqM) Glucose 96 (74-99) mg/dL Plasma Lactic Acid Oh 1.8 (0.7-2.0) mmol/L Calcium 10.0 (8.4-10.2) mg/dL Total Bilirubin 2.2 H (0.2-1.3) mg/dL AST 18 (17-59) U/L ALT 30 (21-72) U/L Alkaline Phosphatase 100 (38-126) U/L Total Protein 7.6 (6.3-8.2) g/dL Albumin 4.6 (3.5-5.0) g/dL Urine Color Urine Appearance (Clear) Urine pH (5.0-8.0) Ur Specific Davis (1.001-1.035) Urine Protein (Negative) Urine Glucose (UA) (Negative) Urine Ketones (Negative) Urine Blood (Negative) Urine Nitrite (Negative) Urine Bilirubin (Negative) Urine Urobilinogen (<2.0) mg/dL Ur Leukocyte Esterase (Negative) Urine RBC (0-5) /hpf Urine WBC (0-5) /hpf Urine WBC Clumps (None) /hpf Amorphous Sediment (None) /hpf Urine Mucus (None) /hpf Urine Sperm (None) /hpf 01/26/17 01/26/17 Range/Units 17:05 18:00 WBC (3.8-10.6) k/uL RBC (4.30-5.90) m/uL Hgb (13.0-17.5) gm/dL Hct (39.0-53.0) % MCV (80.0-100.0) fL MCH (25.0-35.0) pg MCHC (31.0-37.0) g/dL RDW (11.5-15.5) % Plt Count (150-450) k/uL Neutrophils % % Lymphocytes % % Monocytes % % Eosinophils % % Basophils % % Neutrophils # (1.3-7.7) k/uL Lymphocytes # (1.0-4.8) k/uL Monocytes # (0-1.0) k/uL Eosinophils # (0-0.7) k/uL Basophils # (0-0.2) k/uL PT 11.4 (9.0-12.0) sec INR 1.1 (<1.1) APTT 26.1 (22.0-30.0) sec Sodium (137-145) mmol/L Potassium (3.5-5.1) mmol/L Chloride (98-107) mmol/L Carbon Dioxide (22-30) mmol/L Anion Gap mmol/L BUN (9-20) mg/dL Creatinine (0.66-1.25) mg/dL Est GFR (MDRD) Af Amer (>60 ml/min/1.73 sqM) Est GFR (MDRD) Non-Af (>60 ml/min/1.73 sqM) Glucose (74-99) mg/dL Plasma Lactic Acid Oh (0.7-2.0) mmol/L Calcium (8.4-10.2) mg/dL Total Bilirubin (0.2-1.3) mg/dL AST (17-59) U/L ALT (21-72) U/L Alkaline Phosphatase (38-126) U/L Total Protein (6.3-8.2) g/dL Albumin (3.5-5.0) g/dL Urine Color Light Yellow Urine Appearance Cloudy (Clear) Urine pH 8.5 H (5.0-8.0) Ur Specific Davis 1.007 (1.001-1.035) Urine Protein Trace H (Negative) Urine Glucose (UA) Negative (Negative) Urine Ketones 1+ H (Negative) Urine Blood Negative (Negative) Urine Nitrite Positive (Negative) Urine Bilirubin Negative (Negative) Urine Urobilinogen <2.0 (<2.0) mg/dL Ur Leukocyte Esterase Large H (Negative) Urine RBC 3 (0-5) /hpf Urine WBC 75 H (0-5) /hpf Urine WBC Clumps Many H (None) /hpf Amorphous Sediment Rare H (None) /hpf Urine Mucus Rare H (None) /hpf Urine Sperm Few H (None) /hpf - EKG Data -: EKG Interpreted by Ga EKG shows normal: sinus rhythm (Sinus tachycardia with a rate of 105. Interval 162 QRS duration 86 QT/QTC of 334/441Deviation and right ventricular purposely nonspecific inferior changes.) Disposition Clinical Impression: Urinary tract infection, Abdominal pain, Febrile illness, acute Disposition: HOME SELF-CARE Condition: Good Instructions: Abdominal Pain (ED), Fever in Adults (ED), Urinary Tract Infection in Men (ED), Zayas Catheter Placement and Care (ED) Prescriptions: Cephalexin [Keflex] 500 mg PO Q6HR #40 cap Hydrocodone/Acetaminophen [[place] 5-325] 1 each PO Q6HR PRN #20 tab PRN Reason: Pain Ibuprofen 800 mg PO Q6HR PRN #20 tablet PRN Reason: Pain Referrals: Jassi Martinez MD [STAFF PHYSICIAN] - 1-2 days
[2017-01-26 17:34] LABS: Basophils % (A) 0 %; CH 33.4; CHCM 35.3; Eosinophils # (A) 0.1 k/uL (0-0.7); Eosinophils % (A) 0 %; HCT 47.5 % (39.0-53.0); HGB 16.4 gm/dL (13.0-17.5); Luc # (Auto) 0.16; Luc % (Auto) 1; Lymphocytes # (A) 1.1 k/uL (1.0-4.8); Lymphocytes % (A) 8 %; MCH 32.9 pg (25.0-35.0); MCHC 34.6 g/dL (31.0-37.0); MCV 95.1 fL (80.0-100.0); Mean Platelet Volume 7.3; Monocytes # (A) 0.8 k/uL (0-1.0); Monocytes % (A) 6 %; Neutrophils # (A) 11.5 k/uL (1.3-7.7); Neutrophils % (A) 84 %; RBC 4.99 m/uL (4.30-5.90); RDW 13.1 % (11.5-15.5); WBC 13.7 k/uL (3.8-10.6)
[2017-01-26 17:43] LABS: INR 1.1 (<1.1); Partial Thromboplastin Time 26.1 sec (22.0-30.0); Prothrombin Time 11.4 sec (9.0-12.0)
[2017-01-26 17:56] LABS: ALT 30 U/L (21-72); AST 18 U/L (17-59); Alkaline Phosphatase 100 U/L (38-126); Anion Gap 13 mmol/L; Blood Urea Nitrogen 11 mg/dL (9-20); Carbon Dioxide 21 mmol/L (22-30); Chloride 105 mmol/L (98-107); Glucose 96 mg/dL (74-99); Non-African American GFR(MDRD) >60 (>60 ml/min/1.73 sqM); Potassium 3.9 mmol/L (3.5-5.1); Sodium 139 mmol/L (137-145); Total Bilirubin 2.2 mg/dL (0.2-1.3); Total Protein 7.6 g/dL (6.3-8.2)
[2017-01-26 18:33] LABS: Amorphous Sediment,Urine Rare /hpf; Appearance,Urine Cloudy (Clear); Bilirubin,Urine Negative (Negative); Glucose,Urine (UA) Negative (Negative); Ketones,Urine 1+ (Negative); Leukocyte Esterase,Urine Large (Negative); Mucus,Urine Rare /hpf; Nitrite,Urine Positive (Negative); PH, Urine 8.5 (5.0-8.0); Particle Count 5935; Protein,Urine Trace (Negative); RBC,Urine 3 /hpf (0-5); Specific Gravity,Urine 1.007 (1.001-1.035); Sperm,Urine Few /hpf; UA Billing (MACRO vs. MICRO) MICRO; Urobilinogen,Urine <2.0 mg/dL (<2.0); WBC,Urine 75 /hpf (0-5)
[2017-01-26 19:06] VITALS: RESP 16
[2017-01-26 20:29] VITALS: TEMP 99
[2017-01-26 21:13] VITALS: BP 138/81; PULSE 88
== END 2017-01-26 21:15 | disposition home or self-care (01) ==
LOC: EC 16:48
DX: N39.0 Urinary tract infection, site not specified (principal); R10.30 Lower abdominal pain, unspecified; I10 Essential (primary) hypertension; N40.0 Benign prostatic hyperplasia without lower urinary tract symptoms; Z87.891 Personal history of nicotine dependence; Z79.899 Other long term (current) drug therapy; Z88.0 Allergy status to penicillin; Z87.442 Personal history of urinary calculi
CPT/HCPCS: 36415; 93005; 80053; 83605; 85025; 85610; 85730; 81001; 87040; 87086; 87186; 87077; 99283; 96365; 96366; 96375; 96376; 96361; J0696; J1885

== ENCOUNTER → 2017-08-13 | Outpatient (CLI) | payer OTHER ==
--- NOTE | 2017-08-13 11:55 | CT ---
EXAMINATION TYPE: CT lumbar spine wo con DATE OF EXAM: 08/13/2017 COMPARISON: NONE HISTORY: Patient complains of low back pain with radiation bilaterally to the extremeties. CT DLP: 1824.3 mGycm CONTRAST: None TECHNIQUE: CT of the lumbar spine is performed on a spiral scan at 3 mm thick sections. Reconstructed images are performed in the coronal and sagittal planes. FINDINGS: There is an infrarenal renal abdominal aortic fusiform prominence extending to the bifurcat ion measuring 3.3 cm in greatest AP dimension at the superior endplate of L4. T12-L1: No focal disc herniation or significant disc bulge is evident. No spinal canal stenosis or neural foraminal stenosis is present. L1-L2: Mild disc bulge is present with anterior thecal sac contact. No AP spinal canal stenosis or ne ural foraminal stenosis is present. L2-L3: Mild anterior thecal sac flattening is present from broad-based disc bulging at this level. No spinal canal stenosis or neural foraminal stenosis is present. L3-L4: Broad-based disc bulge is present with moderate anterior thecal sac flattening. No AP spinal c anal stenosis is present. Ligamentum flavum laxity is posterior lateral thecal sac compression. Facet hypertrophy is present. L4-L5: Disc bulging is present with mild anterior thecal sac flattening. This may be minimally greate r in the left paracentral region. Some facet hypertrophy is present. No AP spinal canal stenosis or n eural foraminal stenosis is present. L5-S1: Endplate spurring slightly greater to the right paracentral region is present L5-S1 level. Torrey e hard disc material posterior to the L5-S1 disc space is present. Disc space narrowing is present. N o AP spinal canal stenosis present. There may be contact and possible displacement of the exiting rig ht S1 nerve root. Correlate with radicular symptoms. Vertebral alignment appears normal. IMPRESSION: 1. Multilevel disc bulging appears greatest at L3-4 with moderate anterior thecal sac flattening. 2. Annular calcification at the L5-S1 disc level as well as endplate spurring has mild anterior theca l sac compression in the right paracentral canal. This may has some mild right S1 nerve root displace ment. Correlate with radicular symptoms. 3. Multilevel mild disc bulges discussed above.
== END | disposition home or self-care (01) ==
LOC: RADCTMAIN 09:30
PROVIDERS: ATTEND Family Medicine
DX: M51.26 Other intervertebral disc displacement, lumbar region (principal); M51.87 Other intervertebral disc disorders, lumbosacral region; G95.29 Other cord compression
CPT/HCPCS: 72131

== ENCOUNTER → 2018-02-18 | Outpatient (CLI) | payer MEDICARE ==
[2018-02-14 15:15] VITALS: BMI 34.7
[2018-02-18 13:55] VITALS: BP 127/94; PULSE 110; RESP 18
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
== END | disposition home or self-care (01) ==
LOC: PNWHC3 13:20
PROVIDERS: ATTEND Anesthesiology
DX: G89.29 Other chronic pain (principal); M54.5 Low back pain; E78.5 Hyperlipidemia, unspecified; I10 Essential (primary) hypertension; M19.90 Unspecified osteoarthritis, unspecified site; Z79.82 Long term (current) use of aspirin; Z79.51 Long term (current) use of inhaled steroids; Z87.891 Personal history of nicotine dependence; Z90.89 Acquired absence of other organs; Z98.890 Other specified postprocedural states; Z85.46 Personal history of malignant neoplasm of prostate; Z85.830 Personal history of malignant neoplasm of bone; Z88.0 Allergy status to penicillin; Z79.899 Other long term (current) drug therapy
CPT/HCPCS: 99211

== ENCOUNTER 2018-08-31 19:02 | Emergency (ER) | payer MEDICARE ==
[2018-08-31] MEDS ORDERED: SODIUM CHLORIDE 0.9% 1,000 ML IV STA (19:25)
[2018-08-31] MEDS ORDERED: KETOROLAC 30 MG/ML 1 ML VIAL IVP STA (19:34)
[2018-08-31] MEDS ORDERED: ONDANSETRON 4 MG/2 ML VIAL IVP STA (19:34)
[2018-08-31] MEDS ORDERED: diphenhydrAMINE 50 MG/ML 1 ML VIAL IVP STA (19:34)
--- NOTE | 2018-08-31 19:36 | ED ---
General Adult HPI - General Source: patient Mode of arrival: wheelchair Limitations: no limitations <Arnaud Kang - Last Filed: 08/31/18 19:36> <Janae Wiggins P - Last Filed: 08/31/18 22:24> - General Chief complaint: Headache Stated complaint: migraine Time Seen by Provider: 08/31/18 19:19 - Related Data Home Medications Medication Instructions Recorded Confirmed Tamsulosin HCl [Flomax] 0.4 mg PO HS 10/25/16 08/31/18 Lisinopril [Zestril] 20 mg PO HS 12/25/16 08/31/18 Abiraterone Acetate [Zytiga] 1,000 mg PO DAILY 02/14/18 08/31/18 Aspirin 81 mg PO DAILY 02/14/18 08/31/18 Atorvastatin [Lipitor] 20 mg PO HS 02/14/18 08/31/18 Cyclobenzaprine [Flexeril] 5 mg PO HS PRN 02/14/18 08/31/18 Venlafaxine HCl [Effexor] 37.5 mg PO HS 02/14/18 08/31/18 predniSONE 5 mg PO DAILY 02/14/18 08/31/18 Hydrocodone/Acetaminophen [[place] 1 tab PO BID PRN 08/31/18 08/31/18 10-325] Allergies Allergy/AdvReac Type Severity Reaction Status Date / Time Penicillins Allergy Unknown Verified 08/31/18 19:45 Childhood Review of Systems ROS Other: All systems not noted in ROS Statement are negative. <Arnaud Kang - Last Filed: 08/31/18 19:36> ROS Other: All systems not noted in ROS Statement are negative. <Janae Wiggins P - Last Filed: 08/31/18 22:24> ROS Statement: Those systems with pertinent positive or pertinent negative responses have been documented in the HPI. Past Medical History Past Medical History: Cancer, Hypertension, Prostate Disorder Additional Past Medical History / Comment(s): nephrolithiasis, BPH, chronic back pain, DDD, heniated discs ,03/15/16 RT THUMB ABCESS(MRSA).UTI, "IDC PLACED ", prostate cancer History of Any Multi-Drug Resistant Organisms: MRSA Date of last positivie culture/infection: 03/15/16 MDRO Source:: right first finger Past Surgical History: Tonsillectomy Additional Past Surgical History / Comment(s): colonoscopy with benign polypectomies, TESTICLE SURGERY AT AGE 14, i&d/DEBRIDMENT OF RT THUMB ABCESS, PICC LINE SINCE REMOVED, bilateraly orchectomy Past Anesthesia/Blood Transfusion Reactions: No Reported Reaction Past Psychological History: No Psychological Hx Reported Smoking Status: Never smoker Past Alcohol Use History: Occasional Past Drug Use History: Marijuana - Past Family History Father Family Medical History: Cancer, Coronary Artery Disease (CAD) Additional Family Medical History / Comment(s): Father is 87 yrs old. Mother Family Medical History: Liver Disease Additional Family Medical History / Comment(s): Mother at 56 yrs of age from liver disease which pt believes was cirrhosis. <Arnaud Kang - Last Filed: 08/31/18 19:36> General Exam Limitations: no limitations <Arnaud Kang - Last Filed: 08/31/18 19:36> Vital Signs 08/31/18 08/31/18 08/31/18 19:08 19:42 22:03 Temperature 99.6 F 98.4 F Pulse Rate 18 L 114 H 104 H Respiratory 20 18 15 Rate Blood Pressure 210/132 203/103 142/101 O2 Sat by Pulse 97 96 94 L Oximetry Medical Decision Making <Arnaud Kang - Last Filed: 08/31/18 19:36> <Janae Wiggins P - Last Filed: 08/31/18 22:24> - Medical Decision Making Dictation was produced using [employer] dictation software. please excuse any grammatical, word or spelling errors. Chief Complaint: 67-year-old male past medical history of chronic back pain and migraines presents with headache. History of Present Illness: Patient is 67-year-old male presents with chief complaint of headache. Patient began having symptoms yesterday. He states his symptoms have been insidious. Patient has a history of headaches. He denies his being thunderclap or the worse headache of his life. She gets these approximately one per month. Denies any constitutional symptoms. Denies any neuro deficits. He reports that its pulsating. He does complain of light and sound sensitivity. The ROS documented in this emergency department record has been reviewed and confirmed by me. Those systems with pertinent positive or negative responses have been documented in the HPI. All other systems are other negative and/or noncontributory. PHYSICAL EXAM: General Impression: Alert and oriented x3, acute distress secondary to pain HEENT: Normocephalic atraumatic, extra-ocular movements intact, pupils equal and reactive to light bilaterally, mucous membranes moist. Cardiovascular: Heart regular rate and rhythm, S1&S2 audible, no murmurs, rubs or gallops Chest: Lungs clear to auscultation bilaterally, no rhonchi, no wheeze, no rales Abdomen: Bowel sounds present, abdomen soft, non-tender, non-distended, no organomegaly Musculoskeletal: Pulses present and equal in all extremities, no peripheral edema Motor: Power 5/5 bilaterally, no focal deficits noted Neurological: CN II-XII grossly intact, no focal motor or sensory deficits noted Skin: Intact with no visualized rashes Psych: Normal affect and mood ED course: 67-year-old male presents with benign primary headache. Vital signs upon arrival shows blood pressure 210/132, worse vital signs within acceptable limits. Patient given headache cocktail. (Arnaud Kang) She care was signed out to me at shift change. Patient had presented with a headache with no red flag symptoms, patient was noted to be hypertensive and due to take his evening medications home dose lisinopril was ordered. He was given Zofran, Benadryl, O from of and IV fluids. At the time of sign out patient had recently received the medications and was pending reevaluation. Reevaluation at 10:20 PM patient is resting comfortably states he would like to go home now his headache is improved and he would like to sleep and is on bed. (Janae Wiggins) Disposition <Arnaud Kang - Last Filed: 08/31/18 19:36> Is patient prescribed a controlled substance at d/c from ED?: No <Janae Wiggins - Last Filed: 08/31/18 22:24> Clinical Impression: Headache Disposition: HOME SELF-CARE Condition: Good Instructions (If sedation given, give patient instructions): Acute Headache (ED ) Referrals: Ricardo Barth MD [Primary Care Provider] - 1-2 days
[2018-08-31] MEDS ORDERED: ACETAMINOPHEN IV (For NPO) 1,000 MG in EMPTY BAG 1 BAG IVPB ONE (19:45)
[2018-08-31] MEDS ORDERED: LISINOPRIL 10 MG TAB PO STA (20:14)
[2018-08-31 22:04] VITALS: BP 142/101; PULSE 104; RESP 15; TEMP 98.4
== END 2018-08-31 22:43 | disposition home or self-care (01) ==
LOC: EC 19:02
DX: G43.909 Migraine, unspecified, not intractable, without status migrainosus (principal); I10 Essential (primary) hypertension; Z79.82 Long term (current) use of aspirin; Z79.899 Other long term (current) drug therapy; Z79.51 Long term (current) use of inhaled steroids; Z88.0 Allergy status to penicillin; Z85.46 Personal history of malignant neoplasm of prostate
CPT/HCPCS: 99283; 96365; 96375 ×2; 96361; J1200; J2405; J0131

== ENCOUNTER 2018-12-13 10:52 | Inpatient (IN) | payer MEDICARE ==
[2018-12-13] MEDS ORDERED: SODIUM CHLORIDE 0.9% 1,000 ML IV STA ×2 (11:20)
--- NOTE | 2018-12-13 11:33 | ED ---
Abdominal Pain HPI - General Chief Complaint: Abdominal Pain Stated Complaint: abdominal pain Time Seen by Provider: 12/13/18 11:00 Source: patient, RN notes reviewed Mode of arrival: EMS Limitations: no limitations - History of Present Illness Initial Comments: This is a 67-year-old male with a history of diverticulitis in the past also history of prostate cancer who states he's been having abdominal pain for past 3 days he's also been constipated for the past 3 days he states he feels as if he did have a bowel movement he would feel better did have chills fever and sweats 3 days ago and none since then the pain is achy sometimes sharp was 9/10 in severity currently 78/10 severity no other abdominal complaints no abdominal surgeries no dysuria hematuria. MD Complaint: abdominal pain - Related Data Home Medications Medication Instructions Recorded Confirmed Tamsulosin HCl [Flomax] 0.4 mg PO HS 10/25/16 08/31/18 Lisinopril [Zestril] 20 mg PO HS 12/25/16 08/31/18 Abiraterone Acetate [Zytiga] 1,000 mg PO DAILY 02/14/18 08/31/18 Aspirin 81 mg PO DAILY 02/14/18 08/31/18 Atorvastatin [Lipitor] 20 mg PO HS 02/14/18 08/31/18 Cyclobenzaprine [Flexeril] 5 mg PO HS PRN 02/14/18 08/31/18 Venlafaxine HCl [Effexor] 37.5 mg PO HS 02/14/18 08/31/18 predniSONE 5 mg PO DAILY 02/14/18 08/31/18 Hydrocodone/Acetaminophen [[place] 1 tab PO BID PRN 08/31/18 08/31/18 10-325] Allergies Allergy/AdvReac Type Severity Reaction Status Date / Time Penicillins Allergy Unknown Verified 12/13/18 10:58 Childhood Review of Systems ROS Statement: Those systems with pertinent positive or pertinent negative responses have been documented in the HPI. ROS Other: All systems not noted in ROS Statement are negative. Past Medical History Past Medical History: Cancer, Hypertension, Prostate Disorder Additional Past Medical History / Comment(s): nephrolithiasis, BPH, chronic back pain, DDD, heniated discs ,03/15/16 RT THUMB ABCESS(MRSA).UTI, "IDC PLACED 4-23-17", prostate cancer diverticulosis History of Any Multi-Drug Resistant Organisms: MRSA Date of last positivie culture/infection: 03/15/16 MDRO Source:: right first finger Past Surgical History: Tonsillectomy Additional Past Surgical History / Comment(s): colonoscopy with benign polypectomies, TESTICLE SURGERY AT AGE 14, i&d/DEBRIDMENT OF RT THUMB ABCESS, PICC LINE SINCE REMOVED, bilateraly orchectomy Past Anesthesia/Blood Transfusion Reactions: No Reported Reaction Past Psychological History: No Psychological Hx Reported Smoking Status: Never smoker Past Alcohol Use History: Occasional Past Drug Use History: None Reported, Marijuana - Past Family History Father Family Medical History: Cancer, Coronary Artery Disease (CAD) Additional Family Medical History / Comment(s): Father is 87 yrs old. Mother Family Medical History: Liver Disease Additional Family Medical History / Comment(s): Mother at 56 yrs of age from liver disease which pt believes was cirrhosis. General Exam - General Exam Comments Initial Comments: Is a well-developed well-nourished awake alert oriented times 3 male Limitations: no limitations General appearance: alert, anxious, in distress Head exam: Present: atraumatic, normocephalic, normal inspection Eye exam: Present: normal appearance, PERRL, EOMI. Absent: scleral icterus, conjunctival injection, periorbital swelling ENT exam: Present: mucous membranes dry Neck exam: Present: normal inspection, other (No stridor JVD or bruits). Absent: tenderness, meningismus, lymphadenopathy Respiratory exam: Present: normal lung sounds bilaterally. Absent: respiratory distress, wheezes, rales, rhonchi, stridor Cardiovascular Exam: Present: normal rhythm, tachycardia, normal heart sounds. Absent: systolic murmur, diastolic murmur, rubs, gallop, clicks GI/Abdominal exam: Present: soft, tenderness (Lower abdominal tenderness (left lower quadrant some voluntary guarding), normal bowel sounds. Absent: distended, guarding, rebound, rigid, bruit, pulsatile mass Extremities exam: Present: normal inspection, full ROM, normal capillary refill. Absent: tenderness, pedal edema, joint swelling, calf tenderness Back exam: Present: normal inspection Neurological exam: Present: alert, oriented X3, CN II-XII intact Psychiatric exam: Present: normal affect, normal mood Skin exam: Present: warm, dry, intact, normal color. Absent: rash Course Vital Signs 12/13/18 12/13/18 12/13/18 10:55 13:35 14:23 Temperature 97.6 F 98.0 F Pulse Rate 113 H 82 91 Respiratory 24 18 18 Rate Blood Pressure 108/73 149/94 160/96 O2 Sat by Pulse 97 96 96 Oximetry Medical Decision Making - Medical Decision Making Patient still was having pain. I did discuss the findings with Dr. Barth and with Dr. Elliott from urology. Patient be admitted to Dr. Chavarria service with urology consultation - Lab Data Result diagrams: 12/13/18 11:39 12/13/18 11:39 Lab Results 12/13/18 12/13/18 12/13/18 Range/Units 11:39 11:39 11:39 WBC 10.2 (3.8-10.6) k/uL RBC 4.67 (4.30-5.90) m/uL Hgb 15.0 (13.0-17.5) gm/dL Hct 43.5 (39.0-53.0) % MCV 93.3 (80.0-100.0) fL MCH 32.1 (25.0-35.0) pg MCHC 34.4 (31.0-37.0) g/dL RDW 12.9 (11.5-15.5) % Plt Count 174 (150-450) k/uL Neutrophils % 79 % Lymphocytes % 11 % Monocytes % 6 % Eosinophils % 1 % Basophils % 0 % Neutrophils # 8.1 H (1.3-7.7) k/uL Lymphocytes # 1.1 (1.0-4.8) k/uL Monocytes # 0.6 (0-1.0) k/uL Eosinophils # 0.1 (0-0.7) k/uL Basophils # 0.0 (0-0.2) k/uL Sodium 134 L (137-145) mmol/L Potassium 3.5 (3.5-5.1) mmol/L Chloride 100 (98-107) mmol/L Carbon Dioxide 21 L (22-30) mmol/L Anion Gap 13 mmol/L BUN 12 (9-20) mg/dL Creatinine 0.59 L (0.66-1.25) mg/dL Est GFR (CKD-EPI)AfAm >90 (>60 ml/min/1.73 sqM) Est GFR (CKD-EPI)NonAf >90 (>60 ml/min/1.73 sqM) Glucose 238 H (74-99) mg/dL Plasma Lactic Acid Oh 2.3 H* (0.7-2.0) mmol/L Calcium 9.3 (8.4-10.2) mg/dL Magnesium 1.9 (1.6-2.3) mg/dL Total Bilirubin 1.4 H (0.2-1.3) mg/dL AST 21 (17-59) U/L ALT 21 (21-72) U/L Alkaline Phosphatase 123 (38-126) U/L Creatine Kinase 219 H (55-170) U/L Total Protein 6.8 (6.3-8.2) g/dL Albumin 3.9 (3.5-5.0) g/dL Amylase 60 (30-110) U/L Lipase 77 (23-300) U/L Urine Color Urine Appearance (Clear) Urine pH (5.0-8.0) Ur Specific [place] (1.001-1.035) Urine Protein (Negative) Urine Glucose (UA) (Negative) Urine Ketones (Negative) Urine Blood (Negative) Urine Nitrite (Negative) Urine Bilirubin (Negative) Urine Urobilinogen (<2.0) mg/dL Ur Leukocyte Esterase (Negative) Urine RBC (0-5) /hpf Urine WBC (0-5) /hpf Amorphous Sediment (None) /hpf Urine Bacteria (None) /hpf Urine Mucus (None) /hpf 12/13/18 Range/Units 12:50 WBC (3.8-10.6) k/uL RBC (4.30-5.90) m/uL Hgb (13.0-17.5) gm/dL Hct (39.0-53.0) % MCV (80.0-100.0) fL MCH (25.0-35.0) pg MCHC (31.0-37.0) g/dL RDW (11.5-15.5) % Plt Count (150-450) k/uL Neutrophils % % Lymphocytes % % Monocytes % % Eosinophils % % Basophils % % Neutrophils # (1.3-7.7) k/uL Lymphocytes # (1.0-4.8) k/uL Monocytes # (0-1.0) k/uL Eosinophils # (0-0.7) k/uL Basophils # (0-0.2) k/uL Sodium (137-145) mmol/L Potassium (3.5-5.1) mmol/L Chloride (98-107) mmol/L Carbon Dioxide (22-30) mmol/L Anion Gap mmol/L BUN (9-20) mg/dL Creatinine (0.66-1.25) mg/dL Est GFR (CKD-EPI)AfAm (>60 ml/min/1.73 sqM) Est GFR (CKD-EPI)NonAf (>60 ml/min/1.73 sqM) Glucose (74-99) mg/dL Plasma Lactic Acid Oh (0.7-2.0) mmol/L Calcium (8.4-10.2) mg/dL Magnesium (1.6-2.3) mg/dL Total Bilirubin (0.2-1.3) mg/dL AST (17-59) U/L ALT (21-72) U/L Alkaline Phosphatase (38-126) U/L Creatine Kinase (55-170) U/L Total Protein (6.3-8.2) g/dL Albumin (3.5-5.0) g/dL Amylase (30-110) U/L Lipase (23-300) U/L Urine Color Yellow Urine Appearance Cloudy (Clear) Urine pH 6.0 (5.0-8.0) Ur Specific [place] 1.010 (1.001-1.035) Urine Protein 1+ H (Negative) Urine Glucose (UA) Trace H (Negative) Urine Ketones Negative (Negative) Urine Blood Trace H (Negative) Urine Nitrite Negative (Negative) Urine Bilirubin Negative (Negative) Urine Urobilinogen <2.0 (<2.0) mg/dL Ur Leukocyte Esterase Large H (Negative) Urine RBC 10 H (0-5) /hpf Urine WBC 40 H (0-5) /hpf Amorphous Sediment Rare H (None) /hpf Urine Bacteria Many H (None) /hpf Urine Mucus Rare H (None) /hpf - Radiology Data Radiology results: report reviewed (I did review the imaging and report or is evidence of a partially obstructing left ureter 7.8 mm calculus. Diverticulosis and sigmoid: Evidence of a hepatic. Is suspicious for metastatic disease. He also hasn't abdominal aortic aneurysm is 3.4 cm.), image reviewed Disposition Clinical Impression: Abdominal pain, Liver mass, Kidney stone, Intractable pain, Dehydration Disposition: ADMITTED IP TO THIS HOSP Condition: Fair Referrals: Ricardo Barth MD [Primary Care Provider] - 1-2 days
[2018-12-13 11:59] LABS: Basophils % (A) 0 %; Eosinophils # (A) 0.1 k/uL (0-0.7); Eosinophils % (A) 1 %; HCT 43.5 % (39.0-53.0); Lymphocytes # (A) 1.1 k/uL (1.0-4.8); Lymphocytes % (A) 11 %; MCH 32.1 pg (25.0-35.0); MCHC 34.4 g/dL (31.0-37.0); MCV 93.3 fL (80.0-100.0); Mean Platelet Volume 7.1; Monocytes # (A) 0.6 k/uL (0-1.0); Monocytes % (A) 6 %; Neutrophils # (A) 8.1 k/uL (1.3-7.7); Neutrophils % (A) 79 %; Platelet Count 174 k/uL (150-450); RBC 4.67 m/uL (4.30-5.90); RDW 12.9 % (11.5-15.5); WBC 10.2 k/uL (3.8-10.6)
[2018-12-13 12:07] LABS: ALT 21 U/L (21-72); AST 21 U/L (17-59); Albumin 3.9 g/dL (3.5-5.0); Alkaline Phosphatase 123 U/L (38-126); Amylase 60 U/L (30-110); Anion Gap 13 mmol/L; Blood Urea Nitrogen 12 mg/dL (9-20); Calcium 9.3 mg/dL (8.4-10.2); Carbon Dioxide 21 mmol/L (22-30); Chloride 100 mmol/L (98-107); Creatine Kinase 219 U/L (55-170); Glucose 238 mg/dL (74-99); Lipase 77 U/L (23-300); Magnesium 1.9 mg/dL (1.6-2.3); Potassium 3.5 mmol/L (3.5-5.1); Sodium 134 mmol/L (137-145); Total Bilirubin 1.4 mg/dL (0.2-1.3); Total Protein 6.8 g/dL (6.3-8.2)
--- NOTE | 2018-12-13 12:14 | XR ---
EXAMINATION TYPE: XR KUB , 2 VIEWS DATE OF EXAM ORDERED: 12/13/2018 HISTORY: abdominal pain. COMPARISON: None. FINDINGS: The lung bases are clear. Within the abdomen, there are scattered air-fluid levels. There is no evidence of obstruction or free air. No unusual calcifications are seen. IMPRESSION: FINDINGS MOST CONSISTENT WITH ILEUS.
[2018-12-13] MEDS ORDERED: SODIUM CHLORIDE 0.9% 500 ML 500 ML IV STA (12:37)
[2018-12-13 13:09] LABS: Amorphous Sediment,Urine Rare /hpf; Appearance,Urine Cloudy (Clear); Bacteria,Urine Many /hpf; Bilirubin,Urine Negative (Negative); Blood,Urine Trace (Negative); Color,Urine Yellow; Glucose,Urine (UA) Trace (Negative); Ketones,Urine Negative (Negative); Leukocyte Esterase,Urine Large (Negative); Mucus,Urine Rare /hpf; Nitrite,Urine Negative (Negative); Protein,Urine 1+ (Negative); RBC,Urine 10 /hpf (0-5); Urobilinogen,Urine <2.0 mg/dL (<2.0); WBC,Urine 40 /hpf (0-5)
[2018-12-13] MEDS ORDERED: fentaNYL (PF) 50 MCG/ML 2 ML AMP IV STA (13:54)
--- NOTE | 2018-12-13 13:56 | CT ---
EXAMINATION TYPE: CT abdomen pelvis w con DATE OF EXAM: 12/13/2018 REFERENCE: Previous study dated 12/25/2016. HISTORY: LLQ pain CT DLP: 1586.9 mGy Automated exposure control for dose reduction was used. TECHNIQUE: Helical acquisition through the abdomen and pelvis was obtained following the oral ingesti on of without Oral Contrast and following intravenous administration of 100 mL of Isovue 300. The juan a was reformatted in axial, coronal and sagittal projections. FINDINGS: Visualized portions of the lungs are clear. There is no pleural or pericardial fluid the h eart is not enlarged. There is a small hiatal hernia. Within the abdomen, cystic-appearing lesion in the posterior segment of the right lobe of the liver h as enlarged from 2.8 cm to 4.4 cm. This raises a suspicion of metastatic disease. No other definite f ocal hepatic lesion is seen. The liver is enlarged measuring 20 cm. The gallbladder is unremarkable. The spleen is normal. 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 There is stable cystic change within the kidneys bilaterally. There is a 3 mm calculus in the left re nal pelvis and a larger 7.8 mm calculus in the proximal left ureter. There is mild hydronephrosis on the left. There are 2 small calculi in the right kidney. The largest measures 3 mm. It is nonobstructing. The pancreas is unremarkable. The patient's infrarenal abdominal aortic aneurysm is increased in size from 3 cm to 3.4 cm. There is no significant retroperitoneal, iliac or inguinal adenopathy. Previously described lesion al lisa the left obturator chain is no longer clearly visualized. The bladder appears unremarkable. There are scattered diverticula along the left side of the colon. There is no radiographic evidence o f diverticulitis. The appendix is not visualized with certainty. There is degenerative disc disease, facet arthropathy and hypertrophic spondylosis involving the spin e. IMPRESSION: 1. 7.8 MM PARTIALLY OBSTRUCTING CALCULUS IN THE PROXIMAL LEFT URETER WITH MILD LEFT-SIDED HYDRONEPHRO SIS. 2. BILATERAL NONOBSTRUCTING NEPHROLITHIASIS. 3. UNCOMPLICATED DIVERTICULOSIS OF THE SIGMOID COLON. 4. SMALL HIATAL HERNIA. 5. ENLARGING CYSTIC-APPEARING LESION IN THE RIGHT LOBE OF THE LIVER SHOULD BE FURTHER ASSESSED. ULTRA SOUND WOULD BE SUGGESTED. 6. HEPATOMEGALY. 7. 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 8. RENAL CYSTS. 9. ENLARGING INFRARENAL ABDOMINAL AORTIC ANEURYSM WITH MAXIMAL TRANSVERSE DIAMETER AT THIS TIME OF 3. 4 CM. 10. DEGENERATIVE CHANGES WITHIN THE SPINE.
[2018-12-13] MEDS ORDERED: NALOXONE 0.4 MG/ML 1 ML VIAL IV PRN (14:36)
[2018-12-13] MEDS ORDERED: HYDROcodone/APAP 10-325MG 1 EACH TAB PO PRN (14:41)
[2018-12-13] MEDS ORDERED: CYCLOBENZAPRINE 5 MG TAB PO PRN (14:41)
[2018-12-13] MEDS ORDERED: KETOROLAC 30 MG/ML 1 ML VIAL IVP STA (15:02)
[2018-12-13 16:37] VITALS: BMI 33.2
--- NOTE | 2018-12-13 19:08 | US ---
EXAMINATION TYPE: US abdomen limited DATE OF EXAM: 12/13/2018 COMPARISON: CT 12/13/2018 CLINICAL HISTORY: 67-year-old male Pain. Lour abdominal pain and pelvic pain, left ureteral stone per Dr. Weber in [facility]; constipation, stage 4 prostate CA, on oral chemo meds TECHNIQUE: Multiple sonographic images of the right upper quadrant are obtained. FINDINGS: EXAM MEASUREMENTS: Liver Length: 13.7 cm Gallbladder Wall: 0.2 cm CBD: 0.4 cm Right Kidney: 11.2 x 7.9 x 5.9 cm PEDIATRIC NEUROLOGIST NOTES: Liver is not well seen due to overlying bowel gas. Pancreas: Suboptimal visualization due to shadowing from bowel gas. The visualized portion of the vásquez creatic head shows no gross adenopathy. Liver: Simple cyst in the right liver lobe measuring 4.0 x 3.2 x 3.3cm Gallbladder: wnl Evidence for sonographic Garibay's sign: no CBD: wnl Right Kidney: superior pole cyst = 2.3 x 2.4 x 3.1cm . IMPRESSION: 1. A benign, 4.0 cm simple cyst in the right liver lobe. 2. Additional 3.1 cm right upper pole renal cyst. Nephrolithiasis seen on CT of the same day not well demonstrated by ultrasound.
[2018-12-13] MEDS: HYDROmorphone 0.5 MG/0.5 ML SYRINGE IVP PRN ×2 (19:15→23:37)
[2018-12-13] MEDS ORDERED: LISINOPRIL 20 MG TAB PO SCH (21:00)
[2018-12-13] MEDS ORDERED: TAMSULOSIN 0.4 MG CAP.ER.24H PO SCH (21:00)
[2018-12-13] MEDS ORDERED: VENLAFAXINE HCL 37.5 MG TAB PO SCH (21:00)
[2018-12-13] MEDS ORDERED: ATORVASTATIN 20 MG TAB PO SCH (21:00)
[2018-12-14 00:55] VITALS: TEMP 98
[2018-12-14] MEDS: HYDROmorphone 0.5 MG/0.5 ML SYRINGE IVP PRN ×4 (02:40→12:18)
[2018-12-14 08:00] VITALS: BP 123/76; PULSE 91; RESP 16
[2018-12-14] MEDS ORDERED: Abiraterone Acetate [Zytiga] PO SCH (09:00)
[2018-12-14] MEDS ORDERED: ASPIRIN 81 MG PO SCH (09:00)
[2018-12-14] MEDS ORDERED: predniSONE 5 MG TAB PO SCH (09:00)
[2018-12-14] MEDS ORDERED: PANTOPRAZOLE 40 MG/10 ML VIAL IV SCH (09:00)
--- NOTE | 2018-12-14 10:02 | P.GSCN ---
History of Present Illness Consult date: 12/14/18 History of present illness: This is a 67-year-old gentleman who was admitted to the hospital with persistent and significant left lower quadrant pain. The patient has been constipated for several days and was admitted. During the evaluation in the hospital he had a computed tomography scan of abdomen which didn't identify a proximal ureteral stone on the left with minimal hydronephrosis. The stone was 6-7 mm. The patient has known history of stones and has 3 tiny stones in the right one other tiny stone in the left. He has passed 3 stones in the past. He has not required any surgical procedure to the stone. Patient has a known history of metastatic prostate cancer and has had a previous orchiectomy and Zytiga. His urologic care is directed at the [facility]. He hasn't appointment coming up this . He was initially diagnosed by 2 years ago. Patient has had dark urine but no gross hematuria. There is no fever or chills. He is feeling much better since he has had a bowel movement today. He has no flank pain or signs a kidney stone pain at this point in time. Review of Systems - Constitutional Reports as per HPI - Gastrointestinal Reports as per HPI - Genitourinary Reports as per HPI - Musculoskeletal Reports as per HPI Past Medical History Past Medical History: Cancer, Hypertension, Prostate Disorder Additional Past Medical History / Comment(s): nephrolithiasis, BPH, chronic back pain, DDD, heniated discs ,03/15/16 RT THUMB ABCESS(MRSA).UTI, "IDC PLACED 11-25-16", prostate cancer diverticulosis. currently undergoing clinical trials through [facility], oral chemotherapy. history of possible heart attack (stress test returned abnormal recently) History of Any Multi-Drug Resistant Organisms: MRSA Year Discovered:: 03/15/16 MDRO Source:: right thumb Past Surgical History: Tonsillectomy Additional Past Surgical History / Comment(s): colonoscopy with benign polypectomies, TESTICLE SURGERY AT AGE 14, i&d/DEBRIDMENT OF RT THUMB ABCESS, PICC LINE SINCE REMOVED, bilateraly orchectomy Past Anesthesia/Blood Transfusion Reactions: No Reported Reaction Past Psychological History: No Psychological Hx Reported Additional Psychological History / Comment(s): He is independent. He drives. 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 Did not relate to children. Denies injection drug use or other recreational drug use. No travel history Smoking Status: Never smoker Past Alcohol Use History: Occasional Additional Past Alcohol Use History / Comment(s): Pt smoked cig cassually from age 32 to 42. smokes marijuana -last used this am Past Drug Use History: None Reported, Marijuana - Past Family History Father Family Medical History: Cancer, Coronary Artery Disease (CAD) Additional Family Medical History / Comment(s): Father is 87 yrs old. Mother Family Medical History: Liver Disease Additional Family Medical History / Comment(s): Mother at 56 yrs of age f rom liver disease which pt believes was cirrhosis. Medications and Allergies Home Medications Medication Instructions Recorded Confirmed Type Tamsulosin HCl [Flomax] 0.4 mg PO HS 10/25/16 12/13/18 History Lisinopril [Zestril] 20 mg PO HS 12/25/16 12/13/18 History Abiraterone Acetate [Zytiga] 1,000 mg PO DAILY 02/14/18 12/13/18 History Aspirin 81 mg PO DAILY 02/14/18 12/13/18 History Atorvastatin [Lipitor] 20 mg PO HS 02/14/18 12/13/18 History Cyclobenzaprine [Flexeril] 5 mg PO HS PRN 02/14/18 12/13/18 History Venlafaxine HCl [Effexor] 37.5 mg PO HS 02/14/18 12/13/18 History predniSONE 5 mg PO DAILY 02/14/18 12/13/18 History Hydrocodone/Acetaminophen [[place] 1 tab PO BID PRN 08/31/18 12/13/18 History 10-325] Cetirizine HCl 10 mg PO HS 12/13/18 12/13/18 History Allergies Allergy/AdvReac Type Severity Reaction Status Date / Time Penicillins Allergy Unknown Verified 12/13/18 16:08 Childhood Surgical - Exam Vital Signs Temp Pulse Resp BP Pulse Ox 97.6 F 113 H 24 108/73 97 12/13/18 10:55 12/13/18 10:55 12/13/18 10:55 12/13/18 10:55 12/13/18 10:55 - General well developed, well nourished, no distress - Eyes PERRL - ENT no hearing loss - Neck trachea midline - Respiratory normal expansion, normal respiratory effort - Cardiovascular Rhythm: regular - Abdomen Abdomen: soft, non tender - Genitourinary Surgically absent testicles. Rectal is deferred - Integumentary no rash, no growths - Neurologic normal sensation - Musculoskeletal normal posture - Psychiatric oriented to time, oriented to person, oriented to place, speech is normal, memory intact Results - Labs 12/13/18 11:39 12/13/18 11:39 Abnormal Lab Results - Last 24 Hours (Table) 12/13/18 12/13/18 12/13/18 Range/Units 11:39 11:39 11:39 Neutrophils # 8.1 H (1.3-7.7) k/uL Sodium 134 L (137-145) mmol/L Carbon Dioxide 21 L (22-30) mmol/L Creatinine 0.59 L (0.66-1.25) mg/dL Glucose 238 H (74-99) mg/dL Plasma Lactic Acid Oh 2.3 H* (0.7-2.0) mmol/L Total Bilirubin 1.4 H (0.2-1.3) mg/dL Creatine Kinase 219 H (55-170) U/L Urine Protein (Negative) Urine Glucose (UA) (Negative) Urine Blood (Negative) Ur Leukocyte Esterase (Negative) Urine RBC (0-5) /hpf Urine WBC (0-5) /hpf Amorphous Sediment (None) /hpf Urine Bacteria (None) /hpf Urine Mucus (None) /hpf 12/13/18 Range/Units 12:50 Neutrophils # (1.3-7.7) k/uL Sodium (137-145) mmol/L Carbon Dioxide (22-30) mmol/L Creatinine (0.66-1.25) mg/dL Glucose (74-99) mg/dL Plasma Lactic Acid Oh (0.7-2.0) mmol/L Total Bilirubin (0.2-1.3) mg/dL Creatine Kinase (55-170) U/L Urine Protein 1+ H (Negative) Urine Glucose (UA) Trace H (Negative) Urine Blood Trace H (Negative) Ur Leukocyte Esterase Large H (Negative) Urine RBC 10 H (0-5) /hpf Urine WBC 40 H (0-5) /hpf Amorphous Sediment Rare H (None) /hpf Urine Bacteria Many H (None) /hpf Urine Mucus Rare H (None) /hpf Diabetes panel 12/13/18 Range/Units 11:39 Sodium 134 L (137-145) mmol/L Potassium 3.5 (3.5-5.1) mmol/L Chloride 100 (98-107) mmol/L Carbon Dioxide 21 L (22-30) mmol/L BUN 12 (9-20) mg/dL Creatinine 0.59 L (0.66-1.25) mg/dL Glucose 238 H (74-99) mg/dL Calcium 9.3 (8.4-10.2) mg/dL AST 21 (17-59) U/L ALT 21 (21-72) U/L Alkaline Phosphatase 123 (38-126) U/L Total Protein 6.8 (6.3-8.2) g/dL Albumin 3.9 (3.5-5.0) g/dL Calcium panel 12/13/18 Range/Units 11:39 Calcium 9.3 (8.4-10.2) mg/dL Albumin 3.9 (3.5-5.0) g/dL Pituitary panel 12/13/18 Range/Units 11:39 Sodium 134 L (137-145) mmol/L Potassium 3.5 (3.5-5.1) mmol/L Chloride 100 (98-107) mmol/L Carbon Dioxide 21 L (22-30) mmol/L BUN 12 (9-20) mg/dL Creatinine 0.59 L (0.66-1.25) mg/dL Glucose 238 H (74-99) mg/dL Calcium 9.3 (8.4-10.2) mg/dL Adrenal panel 12/13/18 Range/Units 11:39 Sodium 134 L (137-145) mmol/L Potassium 3.5 (3.5-5.1) mmol/L Chloride 100 (98-107) mmol/L Carbon Dioxide 21 L (22-30) mmol/L BUN 12 (9-20) mg/dL Creatinine 0.59 L (0.66-1.25) mg/dL Glucose 238 H (74-99) mg/dL Calcium 9.3 (8.4-10.2) mg/dL Total Bilirubin 1.4 H (0.2-1.3) mg/dL AST 21 (17-59) U/L ALT 21 (21-72) U/L Alkaline Phosphatase 123 (38-126) U/L Total Protein 6.8 (6.3-8.2) g/dL Albumin 3.9 (3.5-5.0) g/dL - Imaging CT scan - abdomen: report reviewed, image reviewed CT scan - pelvis: report reviewed, image reviewed Assessment and Plan Assessment: Impression: Left ureteral calculus proximal. Stage 4 prostatic cancer on zytiga,orchiectomy Recommendation: the patient wants to try to pass this stone if possible. He is asx now. He wants to talk withe the [facility] to get their opinion about stone treatment. From a urological standpoint he can be discharged home He as been given my card for follow up if he wants or needs my care.
--- NOTE | 2018-12-14 12:42 | HP ---
HISTORY AND PHYSICAL 67-year-old white male was admitted to hospital with acute abdominal pain, severe constipation and ureteral colic. He has history of prostate cancer. He has had 3 days of abdominal pain. He states it was relieved when he had a bowel movement here in the hospital. He did have fever, chills and sweats 3 days ago. Since then, he has been okay. Pain level is 9 out of 10, now down to 3 out of 10. Urology saw the patient also this morning. HOME MEDICINES: 1. Flomax 0.4 mg daily. 2. Zestril 20 mg daily. 3. Zytiga 1000 mg daily. 4. Aspirin 81 mg daily. 5. Lipitor 20 mg daily. 6. Flexeril 5 mg q.h.s. p.r.n. 7. Effexor 37.5 mg daily. 8. [place] 10/325 q.12 p.r.n. ALLERGIES: PENICILLIN. REVIEW OF SYSTEMS: Fourteen point review of systems negative except for mentioned in HPI. PAST MEDICAL HISTORY: Cancer, hypertension, prostate disorder, nephrolithiasis, BPH, chronic back pain, herniated disc, ICD placed 11/25/2016, history of prostate cancer, diverticulosis, history of MRSA. PAST SURGICAL HISTORY: Surgeries include colonoscopy with a benign polypectomy, testicular surgery age 14, debridement, right thumb abscess, PICC line removed, bilateral orchiectomy. SOCIAL HISTORY: Never smoked. Occasional alcohol. PAST FAMILY MEDICAL HISTORY: Father cancer, coronary artery disease. Mother has liver disease. PHYSICAL EXAM: Vital signs stable. Afebrile. Cardiovascular S1, S2. Lungs transmitted upper sounds. GI: Soft and nontender. Hematology negative Homans. Psych: Fair mood and affect. Vascular normal dorsalis pedis, posterior tibial and radial pulse. Ophthalmologic: Pupils equal, round, reactive to light and accommodation. Neurologic: Cranial nerves are intact. Skin is warm, dry, intact. Heart rate is 113, now down to 80s to 90s. ASSESSMENT: 1. Acute abdominal pain, resolved with constipation. 2. History of prostate cancer. 3. Possible liver mass. 4. Intractable pain. 5. Dehydration. 6. Possible urinary tract infection. Cleared by Urology for possible discharge. Will follow up in the office tomorrow. MMODL / IJN: [id number] /
--- NOTE | 2018-12-15 00:09 | DS ---
DISCHARGE SUMMARY DISCHARGE MEDICATIONS: 1. Flomax 0.4 mg daily. 2. Zestril 20 mg daily. 3. Aspirin 81 mg daily. 4. Prednisone 5 mg daily. 5. Effexor 37.5 mg q.h.s. 6. Flexeril 5 mg q.h.s. 7. Zytiga 1000 mg daily. 8. Lipitor 20 mg daily. 9. [place] 10/325 q.12 hours. CONDITION: Stable. PROGNOSIS: Guarded. Ambulate as tolerated. HOSPITAL COURSE OF EVENTS: This is a white male who was admitted with BPH, severe abdominal pain, most likely secondary to constipation for which a large bowel movement took his pain away. He has multiple ureteral stenosis and stones for which is being treated as an outpatient. He is to go to [place] this week on Saturday to have this looked at as well as Urology here in town. His abdominal pain which he came in with was pretty much resolved by having a large bowel movement. He will be discharged home in safe condition, stable condition. CONDITION ON DISCHARGE: Stable. Prognosis guarded. Ambulate as tolerated. Follow up as an outpatient in 1 day. MMODL / IJN: [id number] /
== END 2018-12-14 13:50 | disposition home or self-care (01) | DRG 392 ==
LOC: EC 10:52 → 4SSUR 14:36
PROVIDERS: ADMIT Family Medicine; ATTEND Family Medicine
DX: K59.00 Constipation, unspecified (principal); N20.2 Calculus of kidney with calculus of ureter; N39.0 Urinary tract infection, site not specified; C61 Malignant neoplasm of prostate; E86.0 Dehydration; I10 Essential (primary) hypertension; N40.0 Benign prostatic hyperplasia without lower urinary tract symptoms; Z79.82 Long term (current) use of aspirin; Z79.899 Other long term (current) drug therapy; Z82.49 Family history of ischemic heart disease and other diseases of the circulatory system; Z86.14 Personal history of Methicillin resistant Staphylococcus aureus infection; Z87.442 Personal history of urinary calculi; Z90.79 Acquired absence of other genital organ(s); Z92.21 Personal history of antineoplastic chemotherapy; Z95.810 Presence of automatic (implantable) cardiac defibrillator; Z80.9 Family history of malignant neoplasm, unspecified; K57.90 Diverticulosis of intestine, part unspecified, without perforation or abscess without bleeding; M54.5 Low back pain; G89.29 Other chronic pain; Z86.010 Personal history of colon polyps; Z87.440 Personal history of urinary (tract) infections; Z88.0 Allergy status to penicillin; R16.0 Hepatomegaly, not elsewhere classified; I25.2 Old myocardial infarction
CPT/HCPCS: 36415; 74018; 74177; 76705; 80053; 81001; 82150; 82550; 83605; 83690; 83735; 85025; 87040; 96361; 96374; 96375; 99285

== ENCOUNTER 2019-01-12 12:52 | Emergency (ER) | payer MEDICARE ==
[2019-01-12 13:51] VITALS: BP 121/82; PULSE 108; RESP 20; TEMP 98.9
[2019-01-12] MEDS ORDERED: KETOROLAC 60 MG/2 ML VIAL IM STA (16:10)
[2019-01-12] MEDS ORDERED: SULFAMETHOX-TMP 800-160MG 1 EACH TAB PO STA (16:49)
--- NOTE | 2019-01-12 16:53 | ED ---
Male Urogenital HPI - General Chief complaint: Urogenital Stated complaint: needs ureteric stent removed Time Seen by Provider: 01/12/19 15:35 Source: patient Mode of arrival: ambulatory Limitations: no limitations - History of Present Illness Initial comments: Patient is a 68-year-old male presenting to emergency Department with complaints of not being able to remove his ureter stent. Patient states he had a stent placed [address] Light at [facility] after having a kidney stone removed. He was told by Dr. Light that he may remove the stent himself however patient tried and it was causing him to much pain. Patient denies any other complaints at this time. Patient denies fever or chills. - Related Data Home Medications Medication Instructions Recorded Confirmed Tamsulosin HCl [Flomax] 0.4 mg PO HS 10/25/16 12/13/18 Lisinopril [Zestril] 20 mg PO HS 12/25/16 12/13/18 Abiraterone Acetate [Zytiga] 1,000 mg PO DAILY 02/14/18 12/13/18 Aspirin 81 mg PO DAILY 02/14/18 12/13/18 Atorvastatin [Lipitor] 20 mg PO HS 02/14/18 12/13/18 Cyclobenzaprine [Flexeril] 5 mg PO HS PRN 02/14/18 12/13/18 Venlafaxine HCl [Effexor] 37.5 mg PO HS 02/14/18 12/13/18 predniSONE 5 mg PO DAILY 02/14/18 12/13/18 Hydrocodone/Acetaminophen [[place] 1 tab PO BID PRN 08/31/18 12/13/18 10-325] Cetirizine HCl 10 mg PO HS 12/13/18 12/13/18 Allergies Allergy/AdvReac Type Severity Reaction Status Date / Time Penicillins Allergy Unknown Verified 12/13/18 16:08 Childhood Review of Systems ROS Statement: Those systems with pertinent positive or pertinent negative responses have been documented in the HPI. ROS Other: All systems not noted in ROS Statement are negative. Past Medical History Past Medical History: Cancer, Hypertension, Prostate Disorder Additional Past Medical History / Comment(s): nephrolithiasis, BPH, chronic back pain, DDD, heniated discs ,03/15/16 RT THUMB ABCESS(MRSA).UTI, "IDC PLACED 11-25-16", prostate cancer diverticulosis. currently undergoing clinical trials through [facility], oral chemotherapy. history of possible heart attack (stress test returned abnormal recently) History of Any Multi-Drug Resistant Organisms: MRSA Date of last positivie culture/infection: 03/15/16 MDRO Source:: right thumb Past Surgical History: Tonsillectomy Additional Past Surgical History / Comment(s): colonoscopy with benign polypectomies, TESTICLE SURGERY AT AGE 14, i&d/DEBRIDMENT OF RT THUMB ABCESS, PICC LINE SINCE REMOVED, bilateraly orchectomy ureter stent Past Anesthesia/Blood Transfusion Reactions: No Reported Reaction Past Psychological History: Anxiety Smoking Status: Former smoker Past Alcohol Use History: None Reported Past Drug Use History: None Reported, Marijuana - Past Family History Father Family Medical History: Cancer, Coronary Artery Disease (CAD) Additional Family Medical History / Comment(s): Father is 87 yrs old. Mother Family Medical History: Liver Disease Additional Family Medical History / Comment(s): Mother at 56 yrs of age from liver disease which pt believes was cirrhosis. General Exam - General Exam Comments Initial Comments: GENERAL: Well-appearing, well-nourished and in no acute distress. HEAD: Atraumatic, normocephalic. EYES: Pupils equal round and reactive to light, extraocular movements intact, sclera anicteric, conjunctiva are normal. ENT: TMs normal, nares patent, oropharynx clear without exudates. Moist mucous membranes. NECK: Normal range of motion, supple without lymphadenopathy or JVD. LUNGS: Breath sounds clear to auscultation bilaterally and equal. No wheezes rales or rhonchi. HEART: Regular rate and rhythm without murmurs, rubs or gallops. ABDOMEN: Soft, nontender, normoactive bowel sounds. No guarding, no rebound. No masses appreciated. MSK: Normal motion, no pitting or edema. No clubbing or cyanosis. NEUROLOGICAL: Cranial nerves II through XII grossly intact. Normal speech, normal gait. PSYCH: Normal mood, normal affect. SKIN: Warm, Dry, normal turgor, no rashes or lesions noted. Limitations: no limitations exam: Present: normal inspection (No erythema, discharge, signs of infection.) Course Vital Signs 01/12/19 13:47 Temperature 98.9 F Pulse Rate 108 H Respiratory 20 Rate Blood Pressure 121/82 O2 Sat by Pulse 95 Oximetry Medical Decision Making - Medical Decision Making Patient is a 68-year-old male presented to the emergency department for complaints of unable to remove his ureter stent. Stent was placed by Dr. Light 5 days ago after renal stone removal. On exam, there are no signs of infection. The straining of the stent was visible. I spoke with Dr. Light who wanted me to remove the stent. Stent was removed without incident. Per Dr. Light orders, patient was given one tablet of Bactrim for infection prophylactics. Patient will follow up with Dr. Light as needed. Patient will be discharged home. Disposition Clinical Impression: Ureter pain, Pain due to ureteral stent Disposition: HOME SELF-CARE Condition: Stable Instructions (If sedation given, give patient instructions): Ureteral Stent Placement (DC) Additional Instructions: Please return to the Emergency Department if symptoms worsen or any other concerns. Follow-up with urologist if symptoms continue. Is patient prescribed a controlled substance at d/c from ED?: No Referrals: Ricardo Barth MD [Primary Care Provider] - 1-2 days
== END 2019-01-12 17:08 | disposition home or self-care (01) ==
LOC: EC 12:52
DX: N23 Unspecified renal colic (principal); I10 Essential (primary) hypertension; F41.9 Anxiety disorder, unspecified; Z96.0 Presence of urogenital implants; Z86.14 Personal history of Methicillin resistant Staphylococcus aureus infection; Z85.46 Personal history of malignant neoplasm of prostate; Z92.21 Personal history of antineoplastic chemotherapy; Z87.19 Personal history of other diseases of the digestive system; Z87.442 Personal history of urinary calculi; Z87.891 Personal history of nicotine dependence; Z90.79 Acquired absence of other genital organ(s); Z98.890 Other specified postprocedural states; Z79.82 Long term (current) use of aspirin; Z79.899 Other long term (current) drug therapy; Z88.0 Allergy status to penicillin
CPT/HCPCS: 99282

== ENCOUNTER 2019-03-08 18:50 | Emergency (ER) | payer MEDICARE ==
[2019-03-08 19:00] VITALS: TEMP 98
--- NOTE | 2019-03-08 19:08 | ED ---
General Adult HPI - General Chief complaint: Extremity Injury, Upper Stated complaint: Shoulder pain Time Seen by Provider: 03/08/19 19:01 Source: patient Mode of arrival: ambulatory Limitations: no limitations - History of Present Illness Initial comments: Dictation was produced using [employer] dictation software. please excuse any gramm atical, word or spelling errors. Chief Complaint: 68-year-old presents with left shoulder pain. History of Present Illness: 68-year-old male. He complains of chief complaint of left shoulder pain. Patient states that his shows been hurting for approximately 2-3 weeks. States that he's been overexerting himself. He reports that his symptoms started while he was carrying groceries up the stairs. He thinks he over used it. Patient states he has pain especially with abduction. He physically sensation over his medial clavicle insert positions. The ROS documented in this emergency department record has been reviewed and confirmed by me. Those systems with pertinent positive or negative responses have been documented in the HPI. All other systems are other negative and/or noncontributory. PHYSICAL EXAM: General Impression: Alert and oriented x3, not in acute distress HEENT: Normocephalic atraumatic, extra-ocular movements intact, pupils equal and reactive to light bilaterally, mucous membranes moist. Cardiovascular: Heart regular rate and rhythm, S1&S2 audible, no murmurs, rubs or gallops Chest: Lungs clear to auscultation bilaterally, no rhonchi, no wheeze, no rales Abdomen: Bowel sounds present, abdomen soft, non-tender, non-distended, no organomegaly Musculoskeletal: Pulses present and equal in all extremities, no peripheral edema, no step-off of the clavicle, passive range of motion is intact. Active range of motion is intact, mild tenderness to palpation over the medial clavicle. Motor: no focal deficits noted Neurological: CN II-XII grossly intact, no focal motor or sensory deficits noted Skin: Intact with no visualized rashes Psych: Normal affect and mood ED course: 68-year-old male presents with chief complaint of left clavicle and left shoulder pain for 3 weeks. Vital signs upon arrival are within acceptable limits. Patient's clinical presentation consistent with overuse injury. X-rays were obtained shoulder x-ray shows calcific tendinosis at the left rotator cuff. There is also mild acromioclavicular arthropathy. Otherwise no acute processes at this time. Patient given prescription for by mouth analgesics. He is also given a Lidoderm patch. Patient given referral to orthopedic surgery. Return Prevacid discussed. Patient clear for discharge. - Related Data Home Medications Medication Instructions Recorded Confirmed Tamsulosin HCl [Flomax] 0.4 mg PO HS 10/25/16 03/08/19 Lisinopril [Zestril] 20 mg PO HS 12/25/16 03/08/19 Abiraterone Acetate [Zytiga] 1,000 mg PO DAILY 02/14/18 03/08/19 Aspirin 81 mg PO DAILY 02/14/18 03/08/19 Atorvastatin [Lipitor] 20 mg PO HS 02/14/18 03/08/19 Cyclobenzaprine [Flexeril] 5 mg PO HS PRN 02/14/18 03/08/19 predniSONE 5 mg PO DAILY 02/14/18 03/08/19 Hydrocodone/Acetaminophen [[place] 1 tab PO BID PRN 08/31/18 03/08/19 10-325] Cetirizine HCl 10 mg PO HS 12/13/18 03/08/19 Docusate [Colace] 100 mg PO BID 03/08/19 03/08/19 Venlafaxine HCl [Effexor XR] 37.5 mg PO HS 03/08/19 03/08/19 Previous Rx's Medication Instructions Recorded HYDROcodone/APAP 5-325MG [[place] 1 tab PO Q6HR PRN 3 Days #12 tab 03/08/19 5-325] Allergies Allergy/AdvReac Type Severity Reaction Status Date / Time Penicillins Allergy Unknown Verified 03/08/19 19:28 Childhood Review of Systems ROS Statement: Those systems with pertinent positive or pertinent negative responses have been documented in the HPI. ROS Other: All systems not noted in ROS Statement are negative. Past Medical History Past Medical History: Cancer, Hypertension, Prostate Disorder Additional Past Medical History / Comment(s): nephrolithiasis, BPH, chronic back pain, DDD, heniated discs ,03/15/16 RT THUMB ABCESS(MRSA).UTI, "IDC PLACED 11-25-16", prostate cancer diverticulosis. currently undergoing clinical trials through [facility], oral chemotherapy. history of possible heart attack (stress test returned abnormal recently) History of Any Multi-Drug Resistant Organisms: MRSA Date of last positivie culture/infection: 03/15/16 MDRO Source:: right thumb Past Surgical History: Tonsillectomy Additional Past Surgical History / Comment(s): colonoscopy with benign polypectomies, TESTICLE SURGERY AT AGE 14, i&d/DEBRIDMENT OF RT THUMB ABCESS, PICC LINE SINCE REMOVED, bilateraly orchectomy ureter stent Past Anesthesia/Blood Transfusion Reactions: No Reported Reaction Past Psychological History: Anxiety Smoking Status: Former smoker Past Alcohol Use History: None Reported Past Drug Use History: None Reported, Marijuana - Past Family History Father Family Medical History: Cancer, Coronary Artery Disease (CAD) Additional Family Medical History / Comment(s): Father is 87 yrs old. Mother Family Medical History: Liver Disease Additional Family Medical History / Comment(s): Mother at 56 yrs of age from liver disease which pt believes was cirrhosis. General Exam Limitations: no limitations Course Vital Signs 03/08/19 18:57 Temperature 98 F Pulse Rate 94 Respiratory 16 Rate Blood Pressure 124/87 O2 Sat by Pulse 96 Oximetry Disposition Clinical Impression: Shoulder pain Disposition: HOME SELF-CARE Condition: Good Instructions (If sedation given, give patient instructions): Shoulder Pain (ED) Prescriptions: HYDROcodone/APAP 5-325MG [[place] 5-325] 1 tab PO Q6HR PRN 3 Days #12 tab PRN Reason: Severe Pain Is patient prescribed a controlled substance at d/c from ED?: Yes If prescribed controlled substance>3 days was MAPS reviewed?: Prescribed <3 Days Referrals: Naeem Garibay MD [STAFF PHYSICIAN] - 1-2 days Time of Disposition: 19:42
--- NOTE | 2019-03-08 19:32 | XR ---
EXAMINATION TYPE: XR clavicle LT, XR shoulder complete LT DATE OF EXAM: 03/08/2019 COMPARISON: NONE HISTORY: Left shoulder and clavicular pain TECHNIQUE: 2 views of the left clavicle. 3 views of the left shoulder. FINDINGS: Small chromic clavicular osteophytes are seen. No acromioclavicular joint space widening or malalignment. Coracoacromial interval is within normal limits. Visualized left ribs are aligned. No acute fracture or dislocation seen of the left shoulder. Glenohumeral joint spaces within normal l imits. Soft tissues are grossly unremarkable. Small calcification at the insertion of the rotator cuf f. IMPRESSION: 1. No acute fracture or dislocation of the left shoulder. 2. Mild acromioclavicular arthropathy. No acromioclavicular dislocation. 3. Small calcification at the insertion of the rotator cuff is indicative of calcific tendinosis.
[2019-03-08] MEDS ORDERED: LIDOCAINE 5% PATCH TOPICAL STA (19:41)
[2019-03-08 20:05] VITALS: BP 127/89; PULSE 90; RESP 18
== END 2019-03-08 20:04 | disposition home or self-care (01) ==
LOC: EC 18:50
DX: M25.512 Pain in left shoulder (principal); M12.812 Other specific arthropathies, not elsewhere classified, left shoulder; I10 Essential (primary) hypertension; F41.9 Anxiety disorder, unspecified; Z79.82 Long term (current) use of aspirin; Z79.51 Long term (current) use of inhaled steroids; Z79.899 Other long term (current) drug therapy; Z88.0 Allergy status to penicillin; Z87.891 Personal history of nicotine dependence; Z85.46 Personal history of malignant neoplasm of prostate
CPT/HCPCS: 99283

== ENCOUNTER 2019-04-24 22:12 | Inpatient (IN) | payer MEDICARE ==
[2019-04-24 22:31] LABS: Glucose,Whole Blood 358 mg/dL (75-99)
--- NOTE | 2019-04-24 23:18 | ED ---
General Adult HPI - General Chief complaint: Weakness Stated complaint: Syncope,Vomiting Time Seen by Provider: 04/24/19 22:59 Source: patient Mode of arrival: ambulatory Limitations: no limitations - History of Present Illness Initial comments: Patient is a 68-year-old male with history of stage IV prostate cancer is presenting to the emergency department with a chief complaint of weakness. Patient reports about one week ago had an increase in his psychiatric medication. Patient reports ever since he has developed gradual weakness and general body aches. Patient reports over the last 2 days he developed nausea and vomiting. Patient reports he takes oral chemo for his prostate. Patient does report metastasis to his ribs. Patient reports his biggest complaint is the back pain. Patient has a history of low back pain. Patient reports the pain is exacerbated with lying down. Patient denies any one-sided weakness or paresthesias. Patient denies any urinary bowel symptoms. Patient denies any chest pain or shortness of breath. Patient does report a headache but but states this is not the worse headache of his life. No visual disturbances. - Related Data Home Medications Medication Instructions Recorded Confirmed Tamsulosin HCl [Flomax] 0.4 mg PO HS 10/25/16 04/24/19 Lisinopril [Zestril] 20 mg PO HS 12/25/16 04/24/19 Abiraterone Acetate [Zytiga] 1,000 mg PO DAILY 02/14/18 04/24/19 Aspirin 81 mg PO DAILY 02/14/18 04/24/19 Atorvastatin [Lipitor] 20 mg PO HS 02/14/18 04/24/19 Cyclobenzaprine [Flexeril] 5 mg PO HS PRN 02/14/18 04/24/19 predniSONE 5 mg PO DAILY 02/14/18 04/24/19 Hydrocodone/Acetaminophen [[place] 1 tab PO BID PRN 08/31/18 04/24/19 10-325] Cetirizine HCl 10 mg PO HS 12/13/18 04/24/19 Docusate [Colace] 100 mg PO BID 03/08/19 04/24/19 Venlafaxine HCl [Effexor XR] 37.5 mg PO HS 03/08/19 04/24/19 Allergies Allergy/AdvReac Type Severity Reaction Status Date / Time Penicillins Allergy Unknown Verified 04/24/19 22:52 Childhood Review of Systems ROS Statement: Those systems with pertinent positive or pertinent negative responses have been documented in the HPI. ROS Other: All systems not noted in ROS Statement are negative. Past Medical History Past Medical History: Cancer, Hypertension, Prostate Disorder Additional Past Medical History / Comment(s): nephrolithiasis, BPH, chronic back pain, DDD, heniated discs ,03/15/16 RT THUMB ABCESS(MRSA).UTI, "IDC PLACED 11-25-16", prostate cancer diverticulosis. currently undergoing clinical trials through [facility], oral chemotherapy. history of possible heart attack (stress test returned abnormal recently) History of Any Multi-Drug Resistant Organisms: MRSA Date of last positivie culture/infection: 03/15/16 MDRO Source:: right thumb Past Surgical History: Tonsillectomy Additional Past Surgical History / Comment(s): colonoscopy with benign polypectomies, TESTICLE SURGERY AT AGE 14, i&d/DEBRIDMENT OF RT THUMB ABCESS, PICC LINE SINCE REMOVED, bilateraly orchectomy ureter stent Past Anesthesia/Blood Transfusion Reactions: No Reported Reaction Past Psychological History: Anxiety Smoking Status: Former smoker Past Alcohol Use History: None Reported Past Drug Use History: None Reported, Marijuana - Past Family History Father Family Medical History: Cancer, Coronary Artery Disease (CAD) Additional Family Medical History / Comment(s): Father is 87 yrs old. Mother Family Medical History: Liver Disease Additional Family Medical History / Comment(s): Mother at 56 yrs of age from liver disease which pt believes was cirrhosis. General Exam Limitations: no limitations General appearance: alert, in no apparent distress, obese Head exam: Present: atraumatic, normocephalic, normal inspection Eye exam: Present: normal appearance, PERRL, EOMI. Absent: other (No conjunctival pallor.) Pupils: Present: normal accommodation ENT exam: Present: normal exam, normal oropharynx, mucous membranes moist, TM's normal bilaterally, normal external ear exam Neck exam: Present: normal inspection, full ROM Respiratory exam: Present: normal lung sounds bilaterally GI/Abdominal exam: Present: soft, tenderness (Left lower quadrant) Extremities exam: Present: normal inspection, full ROM, normal capillary refill Back exam: Present: normal inspection, full ROM, paraspinal tenderness (Left paraspinal tenderness in the lumbar sacral region) Neurological exam: Present: alert, oriented X3, CN II-XII intact, normal gait Psychiatric exam: Present: normal affect, normal mood Skin exam: Present: warm, intact, normal color Course Vital Signs 04/24/19 04/24/19 04/25/19 22:18 23:30 01:58 Temperature 99.7 F H 99.3 F Pulse Rate 133 H 130 H 105 H Respiratory 19 24 18 Rate Blood Pressure 147/88 145/90 104/76 O2 Sat by Pulse 91 L 96 98 Oximetry 04/25/19 03:57 Temperature 98.7 F Pulse Rate 100 Respiratory Rate Blood Pressure 117/79 O2 Sat by Pulse 98 Oximetry Medical Decision Making - Medical Decision Making patient is a 68-year-old male presenting to emergency Department with a chief complaint of weakness. Patient does have stage IV prostate cancer with metastasis to ribs. Patient does take oral chemotherapy. Patient has developed general weakness for approximately 1 week that has increased in severity. Patient has no chest pain or shortness of breath. Patient reports nausea and vomiting. Patient reports that he has been taking a new bladder medication which cause an increased risk for a UTI. UA is indicative for a UTI along with elevated white blood cells, leukocyte esterase and nitrates. There is also ketones suggesting dehydration. Patient was given 2 L of fluids. Patient was also given antiemetics. Patient reports that he feels better now after the fluids. Sepsis workup was initiated. Patient does have elevated troponins. Patient was given aspirin. Patient does not have any chest pain or shortness of breath. EKG showing a right axis deviation. Patient will be admitted for fur ther medical management. Admitting physician is Dr. Barth. Case discussed, imaging reviewed the laboratory results reviewed with Dr. Gutierrez who is understanding and agreeable with the treatment plan. - Lab Data Result diagrams: 04/24/19 22:40 04/24/19 22:40 Lab Results 04/24/19 04/24/19 04/24/19 Range/Units 22:29 22:40 22:40 WBC 8.2 (3.8-10.6) k/uL RBC 5.24 (4.30-5.90) m/uL Hgb 16.8 (13.0-17.5) gm/dL Hct 48.7 (39.0-53.0) % MCV 92.9 (80.0-100.0) fL MCH 32.1 (25.0-35.0) pg MCHC 34.5 (31.0-37.0) g/dL RDW 12.8 (11.5-15.5) % Plt Count 125 L (150-450) k/uL Neutrophils % 89 % Lymphocytes % 7 % Monocytes % 3 % Eosinophils % 0 % Basophils % 1 % Neutrophils # 7.3 (1.3-7.7) k/uL Lymphocytes # 0.6 L (1.0-4.8) k/uL Monocytes # 0.2 (0-1.0) k/uL Eosinophils # 0.0 (0-0.7) k/uL Basophils # 0.1 (0-0.2) k/uL PT (9.0-12.0) sec INR (<1.2) APTT (22.0-30.0) sec Sodium (137-145) mmol/L Potassium (3.5-5.1) mmol/L Chloride (98-107) mmol/L Carbon Dioxide (22-30) mmol/L Anion Gap mmol/L BUN (9-20) mg/dL Creatinine (0.66-1.25) mg/dL Est GFR (CKD-EPI)AfAm (>60 ml/min/1.73 sqM) Est GFR (CKD-EPI)NonAf (>60 ml/min/1.73 sqM) Glucose (74-99) mg/dL POC Glucose (mg/dL) 358 H (75-99) mg/dL POC Glu On Air Announcer ID Lisa Steiner Lactic Ac Sepsis Rflx Plasma Lactic Acid Oh (0.7-2.0) mmol/L Calcium (8.4-10.2) mg/dL Total Bilirubin (0.2-1.3) mg/dL AST (17-59) U/L ALT (21-72) U/L Alkaline Phosphatase (38-126) U/L Troponin I 0.074 H* (0.000-0.034) ng/mL Total Protein (6.3-8.2) g/dL Albumin (3.5-5.0) g/dL Urine Color Urine Appearance (Clear) Urine pH (5.0-8.0) Ur Specific [place] (1.001-1.035) Urine Protein (Negative) Urine Glucose (UA) (Negative) Urine Ketones (Negative) Urine Blood (Negative) Urine Nitrite (Negative) Urine Bilirubin (Negative) Urine Urobilinogen (<2.0) mg/dL Ur Leukocyte Esterase (Negative) Urine RBC (0-5) /hpf Urine WBC (0-5) /hpf Urine Bacteria (None) /hpf Urine Mucus (None) /hpf 04/24/19 04/24/19 04/24/19 Range/Units 22:40 22:40 22:40 WBC (3.8-10.6) k/uL RBC (4.30-5.90) m/uL Hgb (13.0-17.5) gm/dL Hct (39.0-53.0) % MCV (80.0-100.0) fL MCH (25.0-35.0) pg MCHC (31.0-37.0) g/dL RDW (11.5-15.5) % Plt Count (150-450) k/uL Neutrophils % % Lymphocytes % % Monocytes % % Eosinophils % % Basophils % % Neutrophils # (1.3-7.7) k/uL Lymphocytes # (1.0-4.8) k/uL Monocytes # (0-1.0) k/uL Eosinophils # (0-0.7) k/uL Basophils # (0-0.2) k/uL PT 9.8 (9.0-12.0) sec INR 0.9 (<1.2) APTT 21.0 L (22.0-30.0) sec Sodium 135 L (137-145) mmol/L Potassium 4.5 (3.5-5.1) mmol/L Chloride 98 (98-107) mmol/L Carbon Dioxide 19 L (22-30) mmol/L Anion Gap 18 mmol/L BUN 13 (9-20) mg/dL Creatinine 0.85 (0.66-1.25) mg/dL Est GFR (CKD-EPI)AfAm >90 (>60 ml/min/1.73 sqM) Est GFR (CKD-EPI)NonAf >90 (>60 ml/min/1.73 sqM) Glucose 357 H (74-99) mg/dL POC Glucose (mg/dL) (75-99) mg/dL POC Glu On Air Announcer ID Lactic Ac Sepsis Rflx Plasma Lactic Acid Oh 2.8 H* (0.7-2.0) mmol/L Calcium 9.8 (8.4-10.2) mg/dL Total Bilirubin 1.6 H (0.2-1.3) mg/dL AST 26 (17-59) U/L ALT 29 (21-72) U/L Alkaline Phosphatase 174 H (38-126) U/L Troponin I (0.000-0.034) ng/mL Total Protein 7.7 (6.3-8.2) g/dL Albumin 4.6 (3.5-5.0) g/dL Urine Color Urine Appearance (Clear) Urine pH (5.0-8.0) Ur Specific [place] (1.001-1.035) Urine Protein (Negative) Urine Glucose (UA) (Negative) Urine Ketones (Negative) Urine Blood (Negative) Urine Nitrite (Negative) Urine Bilirubin (Negative) Urine Urobilinogen (<2.0) mg/dL Ur Leukocyte Esterase (Negative) Urine RBC (0-5) /hpf Urine WBC (0-5) /hpf Urine Bacteria (None) /hpf Urine Mucus (None) /hpf 04/24/19 04/25/19 Range/Units 23:37 00:38 WBC (3.8-10.6) k/uL RBC (4.30-5.90) m/uL Hgb (13.0-17.5) gm/dL Hct (39.0-53.0) % MCV (80.0-100.0) fL MCH (25.0-35.0) pg MCHC (31.0-37.0) g/dL RDW (11.5-15.5) % Plt Count (150-450) k/uL Neutrophils % % Lymphocytes % % Monocytes % % Eosinophils % % Basophils % % Neutrophils # (1.3-7.7) k/uL Lymphocytes # (1.0-4.8) k/uL Monocytes # (0-1.0) k/uL Eosinophils # (0-0.7) k/uL Basophils # (0-0.2) k/uL PT (9.0-12.0) sec INR (<1.2) APTT (22.0-30.0) sec Sodium (137-145) mmol/L Potassium (3.5-5.1) mmol/L Chloride (98-107) mmol/L Carbon Dioxide (22-30) mmol/L Anion Gap mmol/L BUN (9-20) mg/dL Creatinine (0.66-1.25) mg/dL Est GFR (CKD-EPI)AfAm (>60 ml/min/1.73 sqM) Est GFR (CKD-EPI)NonAf (>60 ml/min/1.73 sqM) Glucose (74-99) mg/dL POC Glucose (mg/dL) (75-99) mg/dL POC Glu On Air Announcer ID Lactic Ac Sepsis Rflx Y Plasma Lactic Acid Oh (0.7-2.0) mmol/L Calcium (8.4-10.2) mg/dL Total Bilirubin (0.2-1.3) mg/dL AST (17-59) U/L ALT (21-72) U/L Alkaline Phosphatase (38-126) U/L Troponin I (0.000-0.034) ng/mL Total Protein (6.3-8.2) g/dL Albumin (3.5-5.0) g/dL Urine Color Light Yellow Urine Appearance Clear (Clear) Urine pH 5.5 (5.0-8.0) Ur Specific [place] 1.034 (1.001-1.035) Urine Protein Trace H (Negative) Urine Glucose (UA) 4+ H (Negative) Urine Ketones 3+ H (Negative) Urine Blood Trace H (Negative) Urine Nitrite Positive (Negative) Urine Bilirubin Negative (Negative) Urine Urobilinogen <2.0 (<2.0) mg/dL Ur Leukocyte Esterase Moderate H (Negative) Urine RBC 4 (0-5) /hpf Urine WBC 63 H (0-5) /hpf Urine Bacteria Occasional H (None) /hpf Urine Mucus Rare H (None) /hpf Disposition Clinical Impression: Weakness Disposition: ADMITTED IP TO THIS HOSP Condition: Stable Instructions (If sedation given, give patient instructions): Weakness (ED) Additional Instructions: Patient will be admitted Is patient prescribed a controlled substance at d/c from ED?: No Referrals: Ricardo Barth MD [Primary Care Provider] - 1-2 days Time of Disposition: 05:20
[2019-04-24 23:26] LABS: Basophils # (A) 0.1 k/uL (0-0.2); Basophils % (A) 1 %; Eosinophils % (A) 0 %; HCT 48.7 % (39.0-53.0); HGB 16.8 gm/dL (13.0-17.5); Lymphocytes # (A) 0.6 k/uL (1.0-4.8); Lymphocytes % (A) 7 %; MCH 32.1 pg (25.0-35.0); MCHC 34.5 g/dL (31.0-37.0); MCV 92.9 fL (80.0-100.0); Mean Platelet Volume 7.3; Monocytes # (A) 0.2 k/uL (0-1.0); Monocytes % (A) 3 %; Neutrophils # (A) 7.3 k/uL (1.3-7.7); Neutrophils % (A) 89 %; Platelet Count 125 k/uL (150-450); RBC 5.24 m/uL (4.30-5.90); RDW 12.8 % (11.5-15.5); WBC 8.2 k/uL (3.8-10.6)
--- NOTE | 2019-04-24 23:33 | XR ---
EXAMINATION TYPE: XR chest 2V DATE OF EXAM: 04/24/2019 COMPARISON: 12/25/2016 HISTORY: Weakness TECHNIQUE: Frontal and lateral views of the chest are obtained. FINDINGS: There is no heart failure nor confluent pneumonic infiltrate. Costophrenic angles are billie r. There are chest leads. IMPRESSION: No active cardiopulmonary disease. No significant change.
[2019-04-24 23:44] LABS: INR 0.9 (<1.2); Prothrombin Time 9.8 sec (9.0-12.0)
[2019-04-25 00:13] LABS: ALT 29 U/L (21-72); AST 26 U/L (17-59); African American GFR (CKD) >90 (>60 ml/min/1.73 sqM); Albumin 4.6 g/dL (3.5-5.0); Alkaline Phosphatase 174 U/L (38-126); Anion Gap 18 mmol/L; Blood Urea Nitrogen 13 mg/dL (9-20); Calcium 9.8 mg/dL (8.4-10.2); Carbon Dioxide 19 mmol/L (22-30); Chloride 98 mmol/L (98-107); Glucose 357 mg/dL (74-99); Potassium 4.5 mmol/L (3.5-5.1); Sodium 135 mmol/L (137-145); Total Bilirubin 1.6 mg/dL (0.2-1.3); Total Protein 7.7 g/dL (6.3-8.2)
[2019-04-25] MEDS ORDERED: SODIUM CHLORIDE 0.9% 1,000 ML IV STA (00:19)
[2019-04-25] MEDS ORDERED: NITROGLYCERIN OINT 1 INCH/GM PACKET TOPICAL STA (00:42)
[2019-04-25] MEDS ORDERED: ASPIRIN 81 MG PO STA (00:42)
[2019-04-25] MEDS ORDERED: ATORVASTATIN 40 MG TAB PO STA (00:42)
[2019-04-25] MEDS ORDERED: ACETAMINOPHEN TAB 325 MG TAB PO STA (00:51)
[2019-04-25 01:19] LABS: Appearance,Urine Clear (Clear); Bacteria,Urine Occasional /hpf; Bilirubin,Urine Negative (Negative); Blood,Urine Trace (Negative); Color,Urine Light Yellow; Glucose,Urine (UA) 4+ (Negative); Leukocyte Esterase,Urine Moderate (Negative); Mucus,Urine Rare /hpf; Nitrite,Urine Positive (Negative); PH, Urine 5.5 (5.0-8.0); Protein,Urine Trace (Negative); RBC,Urine 4 /hpf (0-5); Specific Gravity,Urine 1.034 (1.001-1.035); Urobilinogen,Urine <2.0 mg/dL (<2.0); WBC,Urine 63 /hpf (0-5)
[2019-04-25 01:30] LABS: Ketones,Urine 3+ (Negative)
[2019-04-25] MEDS: cefTRIAXone IN SWFI 1,000 MG/10 ML SYRINGE IVP ONE ×2 (02:00→08:15)
[2019-04-25] MEDS ORDERED: NALOXONE 0.4 MG/ML 1 ML VIAL IV PRN (05:37)
[2019-04-25] MEDS: SODIUM CHLORIDE 0.9% 1,000 ML IV SCH ×2 (07:14→13:59)
[2019-04-25] MEDS ORDERED: ONDANSETRON 4 MG/2 ML VIAL IVP PRN (14:49)
--- NOTE | 2019-04-25 16:58 | HP ---
HISTORY AND PHYSICAL Remigio Ely is a 68-year-old male with a history of metastatic prostate cancer who comes into the ER with weakness for 3-4 days duration. He also was found to be hypotensive with his blood pressure in the 90 systolic. He subsequently was seen in the ED and admitted for further evaluation. He had some chills. No discrete fever that he had noticed. He had a temperature of 99.7 in the ER with a heart rate in the 130s. He denied any chest pain, but had been complaining of some shortness of breath. PAST MEDICAL HISTORY: Positive for metastatic prostate cancer with recent instrumentation as he had a stent placed apparently in his ureter. History of nephrolithiasis, history of diverticulosis, history suspicious for coronary artery disease, history of orchiectomy, history of anxiety. SOCIAL HISTORY: Patient is a former smoker. Does not drink alcohol excessively. He used to use marijuana in the past. PAST FAMILY HISTORY: Positive for coronary artery disease and cancer in his father. Mother had a history of liver disease. MEDICATIONS: Prior to admission were prednisone, Effexor XR, Flomax, Zestril, [place], Colace, Flexeril, cetirizine, Lipitor, aspirin, and abiraterone acetate. REVIEW OF SYSTEMS: Noncontributory. PHYSICAL EXAMINATION: Blood pressure was 147/88, respiratory rate of 19, pulse 133, temperature 99.7, O2 saturation on room air is 91%. Blood pressure subsequently dropped to 95/68. HEENT reveals pupils equal. Jugular veins are not prominent. Chest reveals scattered rhonchi. Cardiovascular system revealed an S1, S2. Abdomen is soft. There is trace 1+ pedal edema. LABORATORY DATA: White count is 8.2, hemoglobin of 16.8, sodium 135, potassium 4.5, chloride 98, bicarb 19, BUN 13, creatinine 0.85. Lactic acid is 2.8. Troponin is 0.074. UA is positive for nitrite, leukocyte esterases 4+ glucose and 3+ ketones. BUN is 13, creatinine 0.85, glucose 357. CHEST X-RAY: Shows no active disease. IMPRESSION: At this time: 1. Urinary tract infection. 2. Sepsis with systemic inflammatory response. 3. Uncontrolled diabetes mellitus. 4. Metastatic prostate cancer. 5. 6. Elevated troponins. At this point in time, keep him on IV antibiotics. Have ID further evaluate the patient. Cardiology to see the patient as well. Keep him on GI and DVT prophylaxis. His prognosis at this time is guarded. MMODL / IJN: [id number] /
[2019-04-25 17:08] LABS: Glucose,Whole Blood 333 mg/dL (75-99)
[2019-04-25] MEDS: INSULIN ASPART (NovoLOG) 100 UNIT/ML VIAL SQ SCH ×2 (17:16→21:16)
[2019-04-25] MEDS ORDERED: ACETAMINOPHEN TAB 500 MG TAB PO PRN (20:07)
[2019-04-25] MEDS: HEPARIN SODIUM,PORCINE 5,000 UNIT/ML 1 ML VIAL SQ SCH (20:27)
[2019-04-25] MEDS: DOCUSATE 100 MG CAP PO SCH (20:28)
[2019-04-25] MEDS: LISINOPRIL 20 MG TAB PO SCH (20:28)
[2019-04-25] MEDS: FAMOTIDINE 20 MG TAB PO SCH (20:28)
[2019-04-25] MEDS: LORATADINE 10 MG TAB PO SCH (20:28)
[2019-04-25] MEDS: TAMSULOSIN 0.4 MG CAP.ER.24H PO SCH (20:28)
[2019-04-25] MEDS: VENLAFAXINE HCL ER 37.5 MG CAP PO SCH (20:28)
[2019-04-25] MEDS: ATORVASTATIN 20 MG TAB PO SCH (20:28)
[2019-04-25 20:39] LABS: Glucose,Whole Blood 308 mg/dL (75-99)
[2019-04-25] MEDS: HYDROcodone/APAP 10-325MG 1 EACH TAB PO PRN (21:19)
[2019-04-26 06:22] LABS: Glucose,Whole Blood 241 mg/dL (75-99)
[2019-04-26] MEDS: ABIRATERONE ACETATE 1000 MG PO SCH (06:34)
[2019-04-26] MEDS: INSULIN ASPART (NovoLOG) 100 UNIT/ML VIAL SQ SCH ×4 (06:34→20:26)
[2019-04-26] MEDS: predniSONE 5 MG TAB PO SCH (08:27)
[2019-04-26] MEDS: HEPARIN SODIUM,PORCINE 5,000 UNIT/ML 1 ML VIAL SQ SCH ×2 (08:27→20:26)
[2019-04-26] MEDS: DOCUSATE 100 MG CAP PO SCH ×2 (08:27→20:25)
[2019-04-26] MEDS: FAMOTIDINE 20 MG TAB PO SCH ×2 (08:27→20:26)
[2019-04-26] MEDS: ASPIRIN 81 MG PO SCH (08:27)
[2019-04-26] MEDS: SODIUM CHLORIDE 0.9% 1,000 ML IV SCH ×2 (08:28→23:48)
[2019-04-26] MEDS ORDERED: ABIRATERONE ACETATE 1000 MG PO SCH (09:00)
--- NOTE | 2019-04-26 11:08 | P.CRDCN ---
History of Present Illness Consult date: 04/26/19 Reason for Consult (text): Critical troponins History of present illness: This is an obese 68-year-old male, he follows with Dr. Alvarado and [facility]. He denies any coronary artery disease. He does have history of hypertension, hyperlipidemia, stage IV prostate cancer with metastatic disease to his ribs and lumbar spine on oral chemotherapy. Patient complains of generalized weakness for approximately 3-4 days prior to admission along with body aches, nausea and vomiting for 2 days and worsening back pain. Patient denies having any chest pain, shortness of breath, cough. At the time of evaluation, he feels quite comfortable. Patient relates that he had an outpatient stress test done at [facility] in January which she reports is negative. EKG reveals sinus tachycardia. Laboratory studies: Troponin 0.074, 0.267, 0.104, 0.095, blood sugars have been elevated. WBC 8.2, hemoglobin 16.8, platelet count 125. Sodium 135, potassium 4.5, chloride 98, CO2 19, BUN 13 creatinine 0.85. Lactic acid 2.8 and repeat 1.3. Total bilirubin 1.6. Urinalysis with trace blood, leukoesterase moderate, WBC 63. Blood culture positive for Enterobacter cloacae. Chest x-ray shows no acute cardio pulmonary process. Review Of Systems: At the time of my evaluation: Constitutional: Reports fever, reports chills, no night sweats. No weight change. Reports weakness, reports fatigue reports lethargy. No daytime sleepiness. EENT: No headache. No blurred vision or double vision, no loss of vision. Lungs: No shortness of breath, cough, no sputum production. No wheezing. Cardiovascular: No chest pain, no lower extremity edema. No palpitations. No paroxysmal nocturnal dyspnea. No orthopnea. No lightheadedness or dizziness. No syncopal episodes. Abdominal: No abdominal pain. No nausea, vomiting. No diarrhea. No constipation. No bloody or tarry stools.. No loss of appetite. Genitourinary: No dysuria, increased frequency, urgency. No urinary retention. Musculoskeletal: No myalgias. No muscle weakness, no gait dysfunction, no frequent falls. Reports back pain. No neck pain. Integumentary: No wounds, no lesions. Reports rash bilateral feetchronic. No unusual bruising. No change in hair or nails. Neurologic: No aphasia. No facial droop. No change in mentation. No head injury. No headache. No paralysis. No paresthesia. Endocrine: Reports abnormal blood sugars. Gen: This is an obese 68-year-old male. Patient is splinted in bed appears to be comfortable and in no acute distress. No respiratory distress noted. HEENT: Head is atraumatic, normocephalic. Pupils equal, round. Sclerae is anicteric. NECK: Supple. No JVD. No lymphadenopathy. No thyromegaly. LUNGS: Clear to auscultation. No wheezes or rhonchi. No intercostal retractions. HEART: Regular rate and rhythm. No murmur. ABDOMEN: Soft. Bowel sounds are present. No masses. No tenderness. EXTREMITIES: No pedal edema. No calf tenderness. Dorsalis pedis +2 bilaterally. Rash noted to bilateral feet. NEUROLOGICAL: Patient is awake, alert and oriented x3. Cranial nerves 2 through 12 are grossly intact. Assessment: Elevated troponins most likely secondary to sepsis UTI with sepsis and bacteremia Stage IV prostate cancer Hypertension Plan: Obtain 2-D echocardiogram and Doppler study to assess cardiac structure and function. Continue aspirin 81 mg daily, Lipitor 20 mg daily, lisinopril 20 mg at bedtime Further recommendations to follow based upon clinical course. Thank you kindly for this consultation. Nurse practitioner note has been reviewed, I agree with documented findings and plan of care. Patient was seen and examined. Past Medical History Past Medical History: Cancer, Hypertension, Prostate Disorder Additional Past Medical History / Comment(s): nephrolithiasis, BPH, chronic back pain, DDD, heniated discs ,03/15/16 RT THUMB ABCESS(MRSA).UTI, "IDC PLACED 11-25-16", prostate cancer diverticulosis. currently undergoing clinical trials through [facility], oral chemotherapy. history of possible heart attack (stress test returned abnormal recently) History of Any Multi-Drug Resistant Organisms: MRSA Date of last positivie culture/infection: 03/15/16 MDRO Source:: right thumb Past Surgical History: Tonsillectomy Additional Past Surgical History / Comment(s): colonoscopy with benign polypectomies, TESTICLE SURGERY AT AGE 14, i&d/DEBRIDMENT OF RT THUMB ABCESS, PICC LINE SINCE REMOVED, bilateraly orchectomy ureter stent Past Anesthesia/Blood Transfusion Reactions: No Reported Reaction Past Psychological History: Anxiety Additional Psychological History / Comment(s): He is independent. He drives. 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 Did not relate to children. Denies injection drug use or other recreational drug use. No travel history Smoking Status: Never smoker Past Alcohol Use History: None Reported Additional Past Alcohol Use History / Comment(s): Pt smoked cig cassually from age 32 to 42. smokes marijuana -last used this am Past Drug Use History: None Reported, Marijuana Additional Drug Use History / Comment(s): Pt states he has a medical marijuana card. He smokes marijuana in a pipe daily for pain control. - Past Family History Father Family Medical History: Cancer, Coronary Artery Disease (CAD) Additional Family Medical History / Comment(s): Father is 87 yrs old. Mother Family Medical History: Liver Disease Additional Family Medical History / Comment(s): Mother at 56 yrs of age from liver disease which pt believes was cirrhosis. Medications and Allergies Home Medications Medication Instructions Recorded Confirmed Type Tamsulosin HCl [Flomax] 0.4 mg PO HS 10/25/16 04/24/19 History Lisinopril [Zestril] 20 mg PO HS 12/25/16 04/24/19 History Abiraterone Acetate [Zytiga] 1,000 mg PO DAILY 02/14/18 04/24/19 History Aspirin 81 mg PO DAILY 02/14/18 04/24/19 History Atorvastatin [Lipitor] 20 mg PO HS 02/14/18 04/24/19 History Cyclobenzaprine [Flexeril] 5 mg PO HS PRN 02/14/18 04/24/19 History predniSONE 5 mg PO DAILY 02/14/18 04/24/19 History Hydrocodone/Acetaminophen [[place] 1 tab PO BID PRN 08/31/18 04/24/19 History 10-325] Cetirizine HCl 10 mg PO HS 12/13/18 04/24/19 History Docusate [Colace] 100 mg PO BID 03/08/19 04/24/19 History Venlafaxine HCl [Effexor XR] 37.5 mg PO HS 03/08/19 04/24/19 History Allergies Allergy/AdvReac Type Severity Reaction Status Date / Time Penicillins Allergy Unknown Verified 04/24/19 22:52 Childhood Physical Exam Vitals: Vital Signs Temp Pulse Pulse Resp BP BP Pulse Ox 04/26/19 07:26 99.1 F 93 16 128/67 97 04/26/19 04:00 98.9 F 97 16 141/88 97 04/25/19 23:07 98.8 F 94 18 138/84 98 04/25/19 23:05 100 18 04/25/19 20:00 98.3 F 100 18 154/83 95 04/25/19 15:35 98.7 F 91 16 119/73 98 04/25/19 14:29 98.9 F 94 18 113/71 97 04/25/19 13:09 98.4 F 90 18 127/77 98 Intake and Output 04/25/19 04/26/19 04/26/19 22:59 06:59 14:59 Intake Total 240 600 120 Output Total 850 Balance 240 600 -730 Intake: Intake, IV Titration 600 Amount Sodium Chloride 0.9% 1, 600 000 ml @ 75 mls/hr IV . [id number] [facility] Rx#:[id number] Oral 240 120 Output: Urine 850 Other: # Voids 1 2 Weight 103 kg Results 04/24/19 22:40 04/24/19 22:40 Cardiac Enzymes 04/25/19 04/25/19 Range/Units 13:06 19:01 Troponin I 0.104 H* 0.095 H* (0.000-0.034) ng/mL Current Medications Generic Name Dose Route Start Last Admin Trade Name Freq PRN Reason Stop Dose Admin Acetaminophen 500 mg 04/25/19 20:07 04/25/19 20:27 Tylenol Tab PO 500 mg Q6HR PRN Administration Fever and/ or Pain Hydrocodone Bitart/Acetaminophen 1 each 04/25/19 14:48 04/25/19 21:19 [place] 10 PO 1 each BID PRN Administration Pain Aspirin 81 mg 04/26/19 09:00 04/26/19 08:27 Aspirin PO 81 mg DAILY JUNG Administration Atorvastatin Calcium 20 mg 04/25/19 21:00 04/25/19 20:28 Lipitor PO 20 mg HS JUNG Administration Cyclobenzaprine HCl 5 mg 04/25/19 14:48 Flexeril PO HS PRN Pain Docusate Sodium 100 mg 04/25/19 21:00 04/26/19 08:27 Colace PO 100 mg BID JUNG Administration Famotidine 20 mg 04/25/19 21:00 04/26/19 08:27 Pepcid PO 20 mg BID JUNG Administration Heparin Sodium (Porcine) 5,000 unit 04/25/19 21:00 04/26/19 08:27 Heparin SQ 5,000 unit Q12HR JUNG Administration Sodium Chloride 1,000 mls @ 75 mls/hr 04/25/19 05:45 04/26/19 08:28 Saline 0.9% IV 75 mls/hr .[id number] JUNG Administration Ceftriaxone Sodium 2 gm/ 50 mls @ 100 mls/hr 04/26/19 11:00 Sodium Chloride IVPB Q24HR JUNG Insulin Aspart 0 unit 04/25/19 17:30 04/26/19 06:34 Novolog SQ 4 unit ACHS JUNG Administration Protocol Lisinopril 20 mg 04/25/19 21:00 04/25/19 20:28 Zestril PO 20 mg HS JUNG Administration Loratadine 10 mg 04/25/19 21:00 04/25/19 20:28 Claritin PO 10 mg HS JUNG Administration Naloxone HCl 0.2 mg 04/25/19 05:37 Narcan IV Q2M PRN Opioid Reversal Non-Formulary Medication 1,000 mg 04/26/19 06:30 04/26/19 06:34 Abiraterone Acetate [Zytiga] PO 1,000 mg DAILY@0630 JUNG Administration Ondansetron HCl 4 mg 04/25/19 14:49 Zofran IVP Q6HR PRN Nausea And Vomiting Prednisone 5 mg 04/26/19 09:00 04/26/19 08:27 PO 5 mg DAILY JUNG Administration Tamsulosin HCl 0.4 mg 04/25/19 21:00 04/25/19 20:28 Flomax PO 0.4 mg HS JUNG Administration Venlafaxine HCl 37.5 mg 04/25/19 21:00 04/25/19 20:28 Effexor Xr PO 37.5 mg HS JUNG Administration Intake and Output 04/25/19 04/26/19 04/26/19 22:59 06:59 14:59 Intake Total 240 600 120 Output Total 850 Balance 240 600 -730 Intake: Intake, IV Titration 600 Amount Sodium Chloride 0.9% 1, 600 000 ml @ 75 mls/hr IV . [id number] [facility] Rx#:[id number] Oral 240 120 Output: Urine 850 Other: # Voids 1 2 Weight 103 kg 04/24/19 22:40 04/24/19 22:40
[2019-04-26 12:26] LABS: Glucose,Whole Blood 281 mg/dL (75-99)
[2019-04-26 17:17] LABS: Glucose,Whole Blood 239 mg/dL (75-99)
[2019-04-26 20:00] LABS: Glucose,Whole Blood 281 mg/dL (75-99)
[2019-04-26] MEDS: ATORVASTATIN 20 MG TAB PO SCH (20:25)
[2019-04-26] MEDS: LORATADINE 10 MG TAB PO SCH (20:25)
[2019-04-26] MEDS: LISINOPRIL 20 MG TAB PO SCH (20:25)
[2019-04-26] MEDS: VENLAFAXINE HCL ER 37.5 MG CAP PO SCH (20:25)
[2019-04-26] MEDS: TAMSULOSIN 0.4 MG CAP.ER.24H PO SCH (20:25)
--- NOTE | 2019-04-26 21:20 | PN ---
PROGRESS NOTE DATE OF SERVICE: April 26, 2019. He is sitting upright at the side of his bed. He is feeling stronger. He has not started to walk around yet. He has been hemodynamically stable. His blood pressure is 138/93, respiratory rate of 16, pulse rate of 99, temperature 98.8, O2 saturation on room air is 97%. HEENT is unremarkable. Chest reveals decreased breath sounds. No wheeze. Cardiovascular system reveals S1, S2. Abdomen is soft. There is 1+ pedal edema. Troponin is 0.098. Sugars in the 200s. IMPRESSION: At this time is: 1. Urinary tract infection. 2. Sepsis with systemic inflammatory response. 3. Uncontrolled diabetes mellitus. 4. Metastatic prostate cancer. 5. Elevated troponin. Continue IV antibiotics, IV fluids. The patient has been seen by Cardiology and they have recommended a 2D echocardiogram. We will follow their recommendations. Increases activity level. His prognosis is fair. MMODL / IJN: [id number] /
[2019-04-26] MEDS: HYDROcodone/APAP 10-325MG 1 EACH TAB PO PRN (22:43)
[2019-04-26] MEDS: CYCLOBENZAPRINE 5 MG TAB PO PRN (22:44)
[2019-04-27 06:08] LABS: Glucose,Whole Blood 229 mg/dL (75-99)
[2019-04-27] MEDS: INSULIN ASPART (NovoLOG) 100 UNIT/ML VIAL SQ SCH ×5 (06:42→20:45)
[2019-04-27] MEDS: ABIRATERONE ACETATE 1000 MG PO SCH (06:43)
[2019-04-27] MEDS: ASPIRIN 81 MG PO SCH (08:11)
[2019-04-27] MEDS: DOCUSATE 100 MG CAP PO SCH ×2 (08:11→20:45)
[2019-04-27] MEDS: HEPARIN SODIUM,PORCINE 5,000 UNIT/ML 1 ML VIAL SQ SCH ×2 (08:11→20:45)
[2019-04-27] MEDS: predniSONE 5 MG TAB PO SCH (08:11)
[2019-04-27] MEDS: FAMOTIDINE 20 MG TAB PO SCH ×2 (08:12→20:45)
[2019-04-27] MEDS: SODIUM CHLORIDE 0.9% 1,000 ML IV SCH (11:04)
[2019-04-27 11:42] LABS: Hemoglobin A1C 14.2 % (4.0-6.0)
--- NOTE | 2019-04-27 11:54 | ECHOF ---
Referral Reason:LVF MEASUREMENTS -------- HEIGHT: 175.3 cm WEIGHT: 98.0 kg BP: 137/77 RVIDd: 3.3 cm (< 3.3) IVSd: 1.3 cm (0.6 - 1.1) LVIDd: 4.1 cm (3.9 - 5.3) LVPWd: 1.5 cm (0.6 - 1.1) IVSs: 1.9 cm LVIDs: 2.3 cm LVPWs: 1.7 cm LA Diam: 3.3 cm (2.7 - 3.8) LAESV Index (A-L): 15.97 ml/m Ao Diam: 3.4 cm (2.0 - 3.7) AV Cusp: 2.5 cm (1.5 - 2.6) MV EXCURSION: 15.618 mm (> 18.000) MV EF SLOPE: 70 mm/s (70 - 150) EPSS: 0.3 cm MV E Mark: 0.83 m/s MV DecT: 196 ms MV A Mark: 1.01 m/s MV E/A Ratio: 0.82 RAP: 5.00 mmHg RVSP: 23.39 mmHg TAPSE: 15.18 mm FINDINGS -------- Sinus rhythm. This was a technically adequate study. The left ventricular size is normal. There is moderate concentric left ventricular hypertrophy. O verall left ventricular systolic function is normal with, an EF between 55 - 60 %. The diastolic fi lling pattern is normal for the age of the patient 14.86. The right ventricle is mildly enlarged. Normal LA size by volume 22+/-6 ml/m2. The right atrial size is normal. Interatrial and interventricular septum intact. There is mild aortic valve sclerosis. Mild mitral annular calcification present. Mild mitral regurgitation is present. Mild tricuspid regurgitation present. Right ventricular systolic pressure is normal at < 35 mmHg. There is no pulmonic regurgitation present. The aortic root size is normal. IVC Not well visulized. There is no pericardial effusion. CONCLUSIONS -------- 1. Sinus rhythm. 2. This was a technically adequate study. 3. The left ventricular size is normal. 4. There is moderate concentric left ventricular hypertrophy. 5. Overall left ventricular systolic function is normal with, an EF between 55 - 60 %. 6. The diastolic filling pattern is normal for the age of the patient 14.86 7. Normal LA size by volume 22+/-6 ml/m2. 8. There is mild aortic valve sclerosis. 9. Mild mitral annular calcification present. 10. Mild mitral regurgitation is present. 11. Mild tricuspid regurgitation present. 12. Right ventricular systolic pressure is normal at < 35 mmHg. 13. There is no pulmonic regurgitation present. 14. The aortic root size is normal. 15. IVC Not well visulized. 16. There is no pericardial effusion. [employer]: Ashley Ramos RDCS
[2019-04-27 12:22] LABS: Glucose,Whole Blood 284 mg/dL (75-99)
--- NOTE | 2019-04-27 14:32 | P.PN ---
Subjective Progress Note Date: 04/27/19 This is a 68-year-old gentleman admitted with sepsis secondary to acute UTI, and multiple other medical issues. Maintained on gentle IV fluid hydration, IV Rocephin. Afebrile. Both urine and blood cultures reporting Enterobacter cloacae. Infectious disease consult in place, recommendations pending. Ev aluated by cardiology with recommendations noted and appreciated. Echo reporting served LV function, EF 50-60%. Hemoglobin A1c 14.2, hyperglycemia, blood sugars in the 200s. Objective - Vital Signs Vital signs: Vital Signs Temp 98.0 F 04/27/19 07:24 Pulse 93 04/27/19 11:26 Resp 16 04/27/19 11:26 BP 148/110 04/27/19 11:26 Pulse Ox 95 04/27/19 11:26 Intake & Output 04/26/19 04/27/19 04/27/19 18:59 06:59 18:59 Intake Total 1400 200 755 Output Total 1850 Balance -450 200 755 Weight 98.2 kg Intake: Intake, IV Titration 800 275 Amount Sodium Chloride 0.9% 1, 750 225 000 ml @ 75 mls/hr IV . [id number] JUNG Rx#:[id number] cefTRIAXone 2 gm In 50 50 Sodium Chloride 0.9% 50 ml @ 100 mls/hr IVPB Q24HR JUNG Rx#:[id number] Oral 600 200 480 Output: Urine 1850 Other: Voiding Method Toilet # Voids 1 1 - Exam PHYSICAL EXAM: VITAL SIGNS: As above GENERAL: In bed, no acute distress HEENT: Conjunctivae normal. eyes normal. Oral mucosa moist NECK: No JVD. No thyroid enlargement. No LNs CARDIOVASCULAR: S1, S2 regular.. No murmur RESPIRATION: Breath sounds diminished in the bases. No rhonchi or crackles. No bronchial breathing. ABDOMEN: Soft, nontender . No guarding. no masses palpable. No ascites, No hepatosplenomegaly.Bowel sounds heard. LEGS: No edema. no swelling. No calf tenderness. PSYCHIATRY: Alert and oriented X3, mood and affect normal. NERVOUS SYSTEM: Cranial N 2-12 grossly normal. Moves all 4 limbs. Diffuse weakness No focal deficits. Strength and sensation grossly intact.. Skin: Chronic bilateral feet rash Microbiology 04/24/19 23:14 Blood Blood Culture Gram Stain - Final 04/24/19 23:14 Blood Blood Culture - Final Enterobacter cloacae 04/24/19 23:37 Urine,Voided Urine Culture - Final Enterobacter cloacae 04/24/19 22:40 Blood Blood Culture - Preliminary - Labs CBC & Chem 7: 04/24/19 22:40 04/24/19 22:40 Labs: Abnormal Lab Results - Last 24 Hours (Table) 04/26/19 04/26/19 04/26/19 Range/Units 11:56 17:03 19:59 POC Glucose (mg/dL) 239 H 281 H (75-99) mg/dL Hemoglobin A1c 14.2 H (4.0-6.0) % 04/27/19 04/27/19 Range/Units 06:06 12:21 POC Glucose (mg/dL) 229 H 284 H (75-99) mg/dL Hemoglobin A1c (4.0-6.0) % Microbiology - Last 24 Hours (Table) 04/24/19 23:14 Blood Culture Gram Stain - Final Blood Blood Culture - Final Enterobacter cloacae 04/24/19 23:37 Urine Culture - Final Urine,Voided Enterobacter cloacae Assessment and Plan Assessment: Sepsis, secondary to acute UTI and bacteremia with Enterobacter cloacae -Elevated troponins, suspected related to sepsis as per cardiology. -Stage IV prostate cancer -Hypertension -Diabetes mellitus, uncontrolled, hyperglycemic, hemoglobin A1c 14.2 Plan: Continue current medication regime, aspirin, LOVE inhibitor, statin, monitoring and symptomatically treatment. Maintain gentle IV fluid hydration, IV antibiotics. ID and consult in place, recommendations pending. Levemir and pre-meal insulin added to med regime. Close monitoring of Accu-Cheks. prosthodontist/educator and dietitian consulted. Case management to arrange/ensure glucometer, diabetic supplies for discharge. Increase ambulation as tolerated. Discharge planning in progress tentatively for tomorrow. The impression and plan of care has been dictated as directed. : I performed a history and examination of this patient, discussed the same with the dictator. I agree with the dictator's note ,documented as a scribe. Any additional findings or plans will be noted.
[2019-04-27 14:54] VITALS: BMI 31.9
[2019-04-27] MEDS: INSULIN DETEMIR (LEVEMIR) 100 UNIT/ML SYR SQ SCH (15:06)
[2019-04-27 17:16] LABS: Glucose,Whole Blood 222 mg/dL (75-99)
--- NOTE | 2019-04-27 17:59 | P.PN ---
Subjective Progress Note Date: 04/27/19 This 68-year-old gentleman with history of hypertension was admitted with UTI and sepsis. Patient had abnormal troponin values. Echocardiogram showed normal LV function. No segmental wall motion defects are noted. It appears that abnormal troponin values are clear related sepsis. Patient did not have any symptoms of chest pain. No further cardiac workup. We'll follow when necessary Objective - Vital Signs Vital signs: Vital Signs Temp 98.0 F 04/27/19 07:24 Pulse 87 04/27/19 15:05 Resp 16 04/27/19 15:05 BP 148/63 04/27/19 15:05 Pulse Ox 96 04/27/19 15:05 Intake & Output 04/26/19 04/27/19 04/27/19 18:59 06:59 18:59 Intake Total 1400 200 755 Output Total 1850 750 Balance -450 200 5 Weight 98.2 kg 98.2 kg Intake: Intake, IV Titration 800 275 Amount Sodium Chloride 0.9% 1, 750 225 000 ml @ 75 mls/hr IV . [id number] JUNG Rx#:[id number] cefTRIAXone 2 gm In 50 50 Sodium Chloride 0.9% 50 ml @ 100 mls/hr IVPB Q24HR JUNG Rx#:[id number] Oral 600 200 480 Output: Urine 1850 750 Other: Voiding Method Toilet # Voids 1 1 - Exam GENERAL EXAM: Patient is alert and oriented and doesn't appear to be in any acute distress HEENT: Normocephalic. Normal reaction of pupils, equal size, normal range of extraocular motion. No erythema or exudates in the throat. NECK: No masses, no nuchal rigidity. CHEST: No chest wall deformity. LUNGS: Equal air entry with no crackles or wheeze. HEART: S1 and S2 normal with no audible mumurs or gallops. Regular rhythm, femorals equal on both sides.. ABDOMEN: No hepatosplenomegaly, normal bowel sounds, no guarding or rigidity. SKIN: No rashes CENTRAL NERVOUS SYSTEM: No focal deficits. EXTREMITIES: No cyanosis, clubbing or edema. - Labs CBC & Chem 7: 04/24/19 22:40 04/24/19 22:40 Labs: Abnormal Lab Results - Last 24 Hours (Table) 04/26/19 04/26/19 04/27/19 Range/Units 11:56 19:59 06:06 POC Glucose (mg/dL) 281 H 229 H (75-99) mg/dL Hemoglobin A1c 14.2 H (4.0-6.0) % 04/27/19 04/27/19 Range/Units 12:21 17:14 POC Glucose (mg/dL) 284 H 222 H (75-99) mg/dL Hemoglobin A1c (4.0-6.0) % Microbiology - Last 24 Hours (Table) 04/24/19 23:14 Blood Culture Gram Stain - Final Blood Blood Culture - Final Enterobacter cloacae 04/24/19 23:37 Urine Culture - Final Urine,Voided Enterobacter cloacae Assessment and Plan (1) Troponin level elevated Current Visit: Yes Status: Acute Code(s): R74.8 - ABNORMAL LEVELS OF OTHER SERUM ENZYMES SNOMED Code(s): 549680090 (2) Essential hypertension Current Visit: Yes Status: Acute Code(s): I10 - ESSENTIAL (PRIMARY) HYPERTENSION SNOMED Code(s): 71478570 (3) Sepsis Current Visit: Yes Status: Acute Code(s): A41.9 - SEPSIS, UNSPECIFIED ORGANISM SNOMED Code(s): 66398506 Plan: Patient is critically doing well. Echo showed normal LV function. No further cardiac workup
[2019-04-27 20:41] LABS: Glucose,Whole Blood 250 mg/dL (75-99)
[2019-04-27] MEDS: LORATADINE 10 MG TAB PO SCH (20:45)
[2019-04-27] MEDS: VENLAFAXINE HCL ER 37.5 MG CAP PO SCH (20:45)
[2019-04-27] MEDS: LISINOPRIL 20 MG TAB PO SCH (20:45)
[2019-04-27] MEDS: ATORVASTATIN 20 MG TAB PO SCH (20:45)
[2019-04-27] MEDS: TAMSULOSIN 0.4 MG CAP.ER.24H PO SCH (20:45)
--- NOTE | 2019-04-27 23:00 | P.CONS ---
History of Present Illness - Reason for Consult Consult date: 04/27/19 - Chief Complaint Weakness - History of Present Illness 68-year-old male has history of prior MRSA infection to his right thumb that was treated successfully and is had good recovery. However now has been diagnosed with metastatic prostate carcinoma, treated with bilateral orchiectomy has now been on immunotherapy for his metastatic disease. Apparently PSAs were improving but is now had a recent increase. In is being followed by his oncologist. He does relate during this past summer he became acutely ill which point in time he was on evidence of obstruction to the left kidney from stone and it appears that laser lithotripsy and stent placement occurred. After evidence of clearance of the infection and the stent was removed. He was treated with what appears to be several courses of antibiotic therapy. He was doing relatively well until the acute illness. He became weak with fevers and chills and felt quite poorly. He relates these had some fullness and discomfort to the left flank area ever since he's had the infection or procedures. He was told that there are several large stones present. He has not had hematuria or dysuria. Review of Systems Patient feels poorly with weakness HEENT:Denies headache or acute visual change. Denies sinus or mouth discomforts. Denies neck stiffness or pain. Denies significant oral cavity pain. Denies difficulty on swallowing. Lungs: Denies significant shortness of breath, cough, sputum production, or hemoptysis. Cardiovascular: Denies significant shortness of breath, chest pain, chest wall pain, orthopnea, dyspnea on exertion, syncope Gastrointestinal: Doesn't have nausea or emesis but appetite is poor, as had vague abdominal discomforts the left flank area since the obstructive uropathy and laser lithotripsy. Musculoskeletal: He has had chronic musculoskeletal discomfort due to his metastatic prostate cancer Skin: Denies new rash or lesions. No new ulcers or wounds are related.. Neuro: Denies headache or visual change. Denies any new onset weakness or difficulty with ambulation. Denies falls or seizures. Psychiatric:Denies anxiety or depression. Endocrine: Complains of ongoing fatigue, relates to a 40 pound weight loss Past Medical History Past Medical History: Cancer, Hypertension, Prostate Disorder Additional Past Medical History / Comment(s): nephrolithiasis, BPH, chronic back pain, DDD, heniated discs ,03/15/16 RT THUMB ABCESS(MRSA).UTI, "IDC PLACED 4-23-17", prostate cancer diverticulosis. currently undergoing clinical trials through [facility], oral chemotherapy. history of possible heart attack (stress test returned abnormal recently) History of Any Multi-Drug Resistant Organisms: MRSA Year Discovered:: 03/15/16 MDRO Source:: right thumb Past Surgical History: Tonsillectomy Additional Past Surgical History / Comment(s): colonoscopy with benign polypectomies, TESTICLE SURGERY AT AGE 14, i&d/DEBRIDMENT OF RT THUMB ABCESS, PICC LINE SINCE REMOVED, bilateraly orchectomy ureter stent Past Anesthesia/Blood Transfusion Reactions: No Reported Reaction Past Psychological History: Anxiety Additional Psychological History / Comment(s): He is independent. He drives. 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 Did not relate to children. Denies injection drug use or other recreational drug use. No animal exposures. No travel history Smoking Status: Never smoker Past Alcohol Use History: None Reported Additional Past Alcohol Use History / Comment(s): Pt smoked cig cassually from age 32 to 42. smokes marijuana -last used this am Past Drug Use History: None Reported, Marijuana Additional Drug Use History / Comment(s): Pt states he has a medical marijuana card. He smokes marijuana in a pipe daily for pain control. - Past Family History Father Family Medical History: Cancer, Coronary Artery Disease (CAD) Additional Family Medical History / Comment(s): Father is 87 yrs old. Mother Family Medical History: Liver Disease Additional Family Medical History / Comment(s): Mother at 56 yrs of age from liver disease which pt believes was cirrhosis. Medications and Allergies Home Medications and Allergies Comment(s): Current Medications Acetaminophen (Tylenol Tab) 500 mg PO Q6HR PRN PRN Reason: Fever and/ or Pain Last Admin: 04/25/19 20:27 Dose: 500 mg Documented by: Hydrocodone Bitart/Acetaminophen (Five Points 10) 1 each PO BID PRN PRN Reason: Pain Last Admin: 04/26/19 22:43 Dose: 1 each Documented by: Aspirin (Aspirin) 81 mg PO DAILY [facility] Last Admin: 04/27/19 08:11 Dose: 81 mg Documented by: Atorvastatin Calcium (Lipitor) 20 mg PO HS [facility] Last Admin: 04/27/19 20:45 Dose: 20 mg Documented by: Cyclobenzaprine HCl (Flexeril) 5 mg PO HS PRN PRN Reason: Pain Last Admin: 04/26/19 22:44 Dose: 5 mg Documented by: Docusate Sodium (Colace) 100 mg PO BID [facility] Last Admin: 04/27/19 20:45 Dose: 100 mg Documented by: Famotidine (Pepcid) 20 mg PO BID [facility] Last Admin: 04/27/19 20:45 Dose: 20 mg Documented by: Heparin Sodium (Porcine) (Heparin) 5,000 unit SQ Q12HR [facility] Last Admin: 04/27/19 20:45 Dose: 5,000 unit Documented by: Sodium Chloride (Saline 0.9%) 1,000 mls @ 75 mls/hr IV .[id number] [facility] Last Admin: 04/27/19 11:04 Dose: Not Given Documented by: Ceftriaxone Sodium 2 gm/ (Sodium Chloride) 50 mls @ 100 mls/hr IVPB Q24HR [facility] Last Admin: 04/27/19 08:11 Dose: 100 mls/hr Documented by: Insulin Aspart (Novolog) 0 unit SQ ACHS [facility]; Protocol Last Admin: 04/27/19 20:45 Dose: 5 unit Documented by: Insulin Aspart (Novolog) 10 unit 0.1 unit/kg (10 unit) SQ AC-TID [facility] Last Admin: 04/27/19 17:48 Dose: 10 unit Documented by: Insulin Detemir (Levemir) 25 unit SQ DAILY@0700 [facility] Last Admin: 04/27/19 15:06 Dose: 25 unit Documented by: Lisinopril (Zestril) 20 mg PO [facility] Last Admin: 04/27/19 20:45 Dose: 20 mg Documented by: Loratadine (Claritin) 10 mg PO HS [facility] Last Admin: 04/27/19 20:45 Dose: 10 mg Documented by: Naloxone HCl (Narcan) 0.2 mg IV Q2M PRN PRN Reason: Opioid Reversal Non-Formulary Medication (Abiraterone Acetate [Zytiga]) 1,000 mg PO DAILY@0630 [facility] Last Admin: 04/27/19 06:43 Dose: 1,000 mg Documented by: Ondansetron HCl (Zofran) 4 mg IVP Q6HR PRN PRN Reason: Nausea And Vomiting Prednisone () 5 mg PO DAILY [facility] Last Admin: 04/27/19 08:11 Dose: 5 mg Documented by: Tamsulosin HCl (Flomax) 0.4 mg PO [facility] Last Admin: 04/27/19 20:45 Dose: 0.4 mg Documented by: Venlafaxine HCl (Effexor Xr) 37.5 mg PO [facility] Last Admin: 04/27/19 20:45 Dose: 37.5 mg Documented by: Home Medications Medication Instructions Recorded Confirmed Type Tamsulosin HCl [Flomax] 0.4 mg PO HS 10/25/16 04/24/19 History Lisinopril [Zestril] 20 mg PO HS 12/25/16 04/24/19 History Abiraterone Acetate [Zytiga] 1,000 mg PO DAILY 02/14/18 04/24/19 History Aspirin 81 mg PO DAILY 02/14/18 04/24/19 History Atorvastatin [Lipitor] 20 mg PO HS 02/14/18 04/24/19 History Cyclobenzaprine [Flexeril] 5 mg PO HS PRN 02/14/18 04/24/19 History predniSONE 5 mg PO DAILY 02/14/18 04/24/19 History Hydrocodone/Acetaminophen [Five Points 1 tab PO BID PRN 08/31/18 04/24/19 History 10-325] Cetirizine HCl 10 mg PO HS 12/13/18 04/24/19 History Docusate [Colace] 100 mg PO BID 03/08/19 04/24/19 History Venlafaxine HCl [Effexor XR] 37.5 mg PO HS 03/08/19 04/24/19 History Allergies Allergy/AdvReac Type Severity Reaction Status Date / Time Penicillins Allergy Unknown Verified 04/24/19 22:52 Childhood Physical Exam Vitals: Vital Signs Temp Pulse Resp BP Pulse Ox 04/27/19 20:00 98.5 F 91 18 163/98 96 04/27/19 15:05 87 16 148/63 96 04/27/19 11:26 93 16 148/110 95 04/27/19 07:24 98.0 F 84 16 137/77 97 04/27/19 04:00 88 16 138/79 96 04/26/19 23:41 98.4 F 89 16 157/95 96 Intake and Output 04/27/19 04/27/19 04/27/19 06:59 14:59 22:59 Intake Total 755 222 Output Total 750 Balance 755 -528 Intake: Intake, IV Titration 275 Amount Sodium Chloride 0.9% 1, 225 000 ml @ 75 mls/hr IV . [id number] JUNG Rx#:[id number] cefTRIAXone 2 gm In 50 Sodium Chloride 0.9% 50 ml @ 100 mls/hr IVPB Q24HR JUNG Rx#:[id number] Oral 480 222 Output: Urine 750 Other: Voiding Method Toilet # Voids 1 1 1 Weight 98.2 kg 98.2 kg Patient is felt poorly with increasing weakness HEENT: Anicteric conjunctiva are pink and moist nasal mucosa grossly intact without significant lesions, there is no thrush. Neck: The neck is supple without significant lymphadenopathy or thyromegaly. Lungs: Good bilateral air entry without significant crackles or wheezing. There is no significant bronchial sounds. There is no egophony or dullness. Heart: Regular rate and rhythm with an audible S1-S2, no S3 no S4. There is no significant murmur click or rub, PMI was nondisplaced. Abdomen: Abdomen is soft not sniffily distended has complaints of some chronic fullness and discomfort to the left flank area but there is no palpable mass. No suprapubic tenderness. Extremities: The upper extremities have excellent pulses they are symmetric, no significant petechiae or telangiectasia. No splinter hemorrhages were noted. The lower extremities are free from significant edema. The peripheral pulses were 2+ and symmetric. Neuro: Awake alert oriented to person place and time. There are no acute new gross focal sensory motor deficits. Results CBC & Chem 7: 04/24/19 22:40 04/24/19 22:40 Labs: Abnormal Lab Results - Last 24 Hours (Table) 04/26/19 04/27/19 04/27/19 Range/Units 11:56 06:06 12:21 POC Glucose (mg/dL) 229 H 284 H (75-99) mg/dL Hemoglobin A1c 14.2 H (4.0-6.0) % 04/27/19 04/27/19 Range/Units 17:14 20:40 POC Glucose (mg/dL) 222 H 250 H (75-99) mg/dL Hemoglobin A1c (4.0-6.0) % Microbiology - Last 24 Hours (Table) 04/24/19 23:14 Blood Culture Gram Stain - Final Blood Blood Culture - Final Enterobacter cloacae 04/24/19 23:37 Urine Culture - Final Urine,Voided Enterobacter cloacae Laboratory Results WBC 8.2 k/uL (3.8-10.6) 04/24/19 22:40 RBC 5.24 m/uL (4.30-5.90) 04/24/19 22:40 Hgb 16.8 gm/dL (13.0-17.5) 04/24/19 22:40 Hct 48.7 % (39.0-53.0) 04/24/19 22:40 MCV 92.9 fL (80.0-100.0) 04/24/19 22:40 MCH 32.1 pg (25.0-35.0) 04/24/19 22:40 MCHC 34.5 g/dL (31.0-37.0) 04/24/19 22:40 RDW 12.8 % (11.5-15.5) 04/24/19 22:40 Plt Count 125 k/uL (150-450) L 04/24/19 22:40 Neutrophils % 89 % 04/24/19 22:40 Lymphocytes % 7 % 04/24/19 22:40 Monocytes % 3 % 04/24/19 22:40 Eosinophils % 0 % 04/24/19 22:40 Basophils % 1 % 04/24/19 22:40 Neutrophils # 7.3 k/uL (1.3-7.7) 04/24/19 22:40 Lymphocytes # 0.6 k/uL (1.0-4.8) L 04/24/19 22:40 Monocytes # 0.2 k/uL (0-1.0) 04/24/19 22:40 Eosinophils # 0.0 k/uL (0-0.7) 04/24/19 22:40 Basophils # 0.1 k/uL (0-0.2) 04/24/19 22:40 PT 9.8 sec (9.0-12.0) 04/24/19 22:40 INR 0.9 (<1.2) 04/24/19 22:40 APTT 21.0 sec (22.0-30.0) L 04/24/19 22:40 Sodium 135 mmol/L (137-145) L 04/24/19 22:40 Potassium 4.5 mmol/L (3.5-5.1) 04/24/19 22:40 Chloride 98 mmol/L (98-107) 04/24/19 22:40 Carbon Dioxide 19 mmol/L (22-30) L 04/24/19 22:40 Anion Gap 18 mmol/L 04/24/19 22:40 BUN 13 mg/dL (9-20) 04/24/19 22:40 Creatinine 0.85 mg/dL (0.66-1.25) 04/24/19 22:40 Est GFR (CKD-EPI)AfAm >90 (>60 ml/min/1.73 sqM) 04/24/19 22:40 Est GFR (CKD-EPI)NonAf >90 (>60 ml/min/1.73 sqM) 04/24/19 22:40 Glucose 357 mg/dL (74-99) H 04/24/19 22:40 POC Glucose (mg/dL) 250 mg/dL (75-99) H 04/27/19 20:40 POC Glu Drapery Inspector Shari Colmenares 04/27/19 20:[address] Glu mg/dL 361 04/26/19 11:56 Hemoglobin A1c 14.2 % (4.0-6.0) H 04/26/19 11:56 Lactic Ac Sepsis Rflx Y 04/25/19 00:38 Plasma Lactic Acid Oh 1.3 mmol/L (0.7-2.0) 04/25/19 04:21 Calcium 9.8 mg/dL (8.4-10.2) 04/24/19 22:40 Total Bilirubin 1.6 mg/dL (0.2-1.3) H 04/24/19 22:40 AST 26 U/L (17-59) 04/24/19 22:40 ALT 29 U/L (21-72) 04/24/19 22:40 Alkaline Phosphatase 174 U/L (38-126) H 04/24/19 22:40 Troponin I 0.095 ng/mL (0.000-0.034) H* 04/25/19 19:01 Total Protein 7.7 g/dL (6.3-8.2) 04/24/19 22:40 Albumin 4.6 g/dL (3.5-5.0) 04/24/19 22:40 Urine Color Light Yellow 04/24/19 23:37 Urine Appearance Clear (Clear) 04/24/19 23:37 Urine pH 5.5 (5.0-8.0) 04/24/19 23:37 Ur Specific Sandy 1.034 (1.001-1.035) 04/24/19 23:37 Urine Protein Trace (Negative) H 04/24/19 23:37 Urine Glucose (UA) 4+ (Negative) H 04/24/19 23:37 Urine Ketones 3+ (Negative) H 04/24/19 23:37 Urine Blood Trace (Negative) H 04/24/19 23:37 Urine Nitrite Positive (Negative) 04/24/19 23:37 Urine Bilirubin Negative (Negative) 04/24/19 23:37 Urine Urobilinogen <2.0 mg/dL (<2.0) 04/24/19 23:37 Ur Leukocyte Esterase Moderate (Negative) H 04/24/19 23:37 Urine RBC 4 /hpf (0-5) 04/24/19 23:37 Urine WBC 63 /hpf (0-5) H 04/24/19 23:37 Urine Bacteria Occasional /hpf (None) H 04/24/19 23:37 Urine Mucus Rare /hpf (None) H 04/24/19 23:37 Microbiology 04/24/19 23:14 Blood Blood Culture Gram Stain - Final 04/24/19 23:14 Blood Blood Culture - Final Enterobacter cloacae 04/24/19 23:37 Urine,Voided Urine Culture - Final Enterobacter cloacae 04/24/19 22:40 Blood Blood Culture - Preliminary Assessment and Plan (1) Prostate cancer metastatic to bone Current Visit: Yes Status: Acute Code(s): C61 - MALIGNANT NEOPLASM OF PROSTATE; C79.51 - SECONDARY MALIGNANT NEOPLASM OF BONE SNOMED Code(s): 110397291 (2) Sepsis Current Visit: Yes Status: Acute Code(s): A41.9 - SEPSIS, UNSPECIFIED ORGANISM SNOMED Code(s): 11633462 (3) Bacteremia Narrative/Plan: 68-year-old male that has a complex past medical history is being actively treated for his prostate carcinoma. Has been some slight recent change in is being followed at [facility] cancer clinic. Patient weighs was feeling poorly presents to emergency center recommendations evidence of fever leukocytosis and evidence of urinary infection. Cultures show evidence of gram-negative bacteremia as well as gram-negative bacteriuria. The patient sepsis from urinary system is occurring antibiotic therapy has been utilizing this point in time with ceftriaxone. This will continue for now. The patient does have a history of stent and stones in the left kidney and collecting system. Ultrasound is requested this area to further evaluate. Given the patient's immunocompromised status will likely utilize outpatient course of IV antibiotic therapy at discharge. Current Visit: Yes Status: Acute Code(s): R78.81 - BACTEREMIA SNOMED Code(s): 5833486
[2019-04-27] MEDS: HYDROcodone/APAP 10-325MG 1 EACH TAB PO PRN (23:03)
[2019-04-27] MEDS: CYCLOBENZAPRINE 5 MG TAB PO PRN (23:04)
[2019-04-28] MEDS: SODIUM CHLORIDE 0.9% 1,000 ML IV SCH ×2 (04:29→15:12)
[2019-04-28 06:14] LABS: Glucose,Whole Blood 201 mg/dL (75-99)
[2019-04-28 06:31] LABS: Basophils # (A) 0.1 k/uL (0-0.2); Basophils % (A) 1 %; Eosinophils # (A) 0.1 k/uL (0-0.7); Eosinophils % (A) 1 %; HCT 41.4 % (39.0-53.0); HGB 14.4 gm/dL (13.0-17.5); Lymphocytes % (A) 35 %; MCH 31.6 pg (25.0-35.0); MCHC 34.7 g/dL (31.0-37.0); MCV 91.2 fL (80.0-100.0); Mean Platelet Volume 7.1; Monocytes # (A) 0.4 k/uL (0-1.0); Monocytes % (A) 7 %; Neutrophils % (A) 53 %; Platelet Count 160 k/uL (150-450); RBC 4.54 m/uL (4.30-5.90); RDW 12.6 % (11.5-15.5); WBC 5.7 k/uL (3.8-10.6)
[2019-04-28 06:47] LABS: African American GFR (CKD) >90 (>60 ml/min/1.73 sqM); Anion Gap 6 mmol/L; Blood Urea Nitrogen 11 mg/dL (9-20); Calcium 8.7 mg/dL (8.4-10.2); Carbon Dioxide 24 mmol/L (22-30); Chloride 105 mmol/L (98-107); Glucose 189 mg/dL (74-99); Potassium 3.4 mmol/L (3.5-5.1); Sodium 135 mmol/L (137-145)
[2019-04-28] MEDS: ABIRATERONE ACETATE 1000 MG PO SCH (08:04)
[2019-04-28 08:31] VITALS: RESP 20
--- NOTE | 2019-04-28 08:37 | US ---
EXAMINATION TYPE: US abdomen comp/pelvis limited DATE OF EXAM: 04/28/2019 COMPARISON: 12/13/2018 CLINICAL HISTORY: recent left urteral stent, obstruction,hydronephro. Pain hx of renal stones. EXAM MEASUREMENTS: Liver Length: 16.8 cm Gallbladder Wall: .3 cm CBD: .4 cm Spleen: 11 cm Right Kidney: 11.5 x 5.4 x 5.8 cm Left Kidney: 12.3 x 5.6 x 5.4 cm Pancreas: Obscured by bowel gas Liver: Cystic area right lobe 3.6 x 2.9 x 4.3 cm. Gallbladder: wnl CBD: wnl Spleen: wnl Right Kidney: Cystic area upper pole 3.2 x 2.7 x 3.0 cm Left Kidney: Cystic area upper pole 2.4 x 3.3 x 3.0 cm Upper IVC: wnl Abd Aorta: AAA distal seen on previous 3.6cm. Bladder: wnl Bilateral Jets Seen No IMPRESSION: 1. Stable hepatic and bilateral renal cysts 2. 3.6 mm abdominal aortic aneurysm
[2019-04-28] MEDS: INSULIN DETEMIR (LEVEMIR) 100 UNIT/ML SYR SQ SCH (08:54)
[2019-04-28] MEDS: FAMOTIDINE 20 MG TAB PO SCH (08:55)
[2019-04-28] MEDS: DOCUSATE 100 MG CAP PO SCH (08:55)
[2019-04-28] MEDS: HEPARIN SODIUM,PORCINE 5,000 UNIT/ML 1 ML VIAL SQ SCH (08:55)
[2019-04-28] MEDS: INSULIN ASPART (NovoLOG) 100 UNIT/ML VIAL SQ SCH ×4 (08:55→12:36)
[2019-04-28] MEDS: ASPIRIN 81 MG PO SCH (08:56)
[2019-04-28] MEDS: predniSONE 5 MG TAB PO SCH (08:56)
--- NOTE | 2019-04-28 11:29 | P.DS ---
Providers Date of admission: 04/26/19 13:30 Expected date of discharge: 04/28/19 Attending physician: Ricardo Barth Consults: 04/25/19 11:47 Consult Physician Stat Consulting Provider: Ludivina Hernandez Consult Reason/Comments: critical troponins Do you want consulting provider notified?: Yes 04/25/19 12:25 Consult Physician Stat Consulting Provider: Urmila Wang Consult Reason/Comments: uti Do you want consulting provider notified?: Yes Primary care physician: Ricardo Barth [facility] Course: Final Diagnoses: Sepsis, secondary to acute UTI and bacteremia with Enterobacter cloacae -Elevated troponins, suspected related to sepsis as per cardiology. -Stage IV prostate cancer -Hypertension -Diabetes mellitus, uncontrolled, hyperglycemic, hemoglobin A1c 14.2 Hospital course:This is a 68-year-old gentleman admitted with sepsis secondary to acute UTI, and multiple other medical issues. Maintained on gentle IV fluid hydration, IV Rocephin. Afebrile. Both urine and blood cultures reporting Enterobacter cloacae. Infectious disease consult in place, recommendations pending. Evaluated by cardiology with recommendations noted and appreciated. Echo reporting served LV function, EF 50-60%. Hemoglobin A1c 14.2, hyperglycemia, blood sugars in the 200s. Blood sugars better controlled on Levemir insulin and sliding scale . Patient set up with diabetic supplies including glucometer. Evaluated both cardiology and infectious disease. Maintained on IV antibiotics as per ID. Midline catheter being placed today. Significant clinical improvement. Cleared by all consults for discharge. Patient is being discharged home in a stable condition with guarded prognosis pending midline catheter placement and DC IV antibiotics. EXAM: GENERAL: Alert and oriented 3, no acute distress CARDIOVASCULAR: S1, S2 regular.. No murmur RESPIRATION: Breath sounds diminished in the bases. No rhonchi or crackles. No bronchial breathing. ABDOMEN: Soft, nontender . No guarding. no masses palpable. Bowel sounds heard. NERVOUS SYSTEM: No focal deficits. Microbiology 04/24/19 23:14 Blood Blood Culture Gram Stain - Final 04/24/19 23:14 Blood Blood Culture - Final Enterobacter cloacae 04/24/19 23:37 Urine,Voided Urine Culture - Final Enterobacter cloacae 04/24/19 22:40 Blood Blood Culture - Preliminary The impression and plan of care has been dictated as directed. : I performed a history and examination of this patient, discussed the same with the dictator. I agree with the dictator's note ,documented as a scribe. Any additional findings or plans will be noted. Time taken: 35 minutes Patient Condition at Discharge: Stable Plan - Discharge Summary Discharge Rx Participant: Yes New Discharge Prescriptions: New cefTRIAXone [Rocephin] 2 gm IVPB Q24HR #14 vial Famotidine [Pepcid] 20 mg PO BID #0 tab Insulin Detemir (Levemir) [Levemir] 30 unit SQ DAILY@0700 #1 syr INSULIN LISPRO (HumaLOG) [humaLOG] 0 unit SQ ACHS #1 vial Continue Tamsulosin HCl [Flomax] 0.4 mg PO HS Lisinopril [Zestril] 20 mg PO HS Aspirin 81 mg PO DAILY predniSONE 5 mg PO DAILY Cyclobenzaprine [Flexeril] 5 mg PO HS PRN PRN Reason: Pain Abiraterone Acetate [Zytiga] 1,000 mg PO DAILY Atorvastatin [Lipitor] 20 mg PO HS Hydrocodone/Acetaminophen [[place] 10-325] 1 tab PO BID PRN PRN Reason: Pain Cetirizine HCl 10 mg PO HS Venlafaxine HCl [Effexor XR] 37.5 mg PO HS Docusate [Colace] 100 mg PO BID Discharge Medication List Tamsulosin HCl [Flomax] 0.4 mg PO HS 10/25/16 [History] Lisinopril [Zestril] 20 mg PO HS 12/25/16 [History] Abiraterone Acetate [Zytiga] 1,000 mg PO DAILY 02/14/18 [History] Aspirin 81 mg PO DAILY 02/14/18 [History] Atorvastatin [Lipitor] 20 mg PO HS 02/14/18 [History] Cyclobenzaprine [Flexeril] 5 mg PO HS PRN 02/14/18 [History] predniSONE 5 mg PO DAILY 02/14/18 [History] Hydrocodone/Acetaminophen [[place] 10-325] 1 tab PO BID PRN 08/31/18 [History] Cetirizine HCl 10 mg PO HS 12/13/18 [History] Docusate [Colace] 100 mg PO BID 03/08/19 [History] Venlafaxine HCl [Effexor XR] 37.5 mg PO HS 03/08/19 [History] Famotidine [Pepcid] 20 mg PO BID #0 tab 04/28/19 [Rx] INSULIN LISPRO (HumaLOG) [humaLOG] 0 unit SQ ACHS #1 vial 04/28/19 [Rx] Insulin Detemir (Levemir) [Levemir] 30 unit SQ DAILY@0700 #1 syr 04/28/19 [Rx] cefTRIAXone [Rocephin] 2 gm IVPB Q24HR #14 vial 04/28/19 [Rx] Follow up Appointment(s)/Referral(s): Ricardo Harrell MD [STAFF PHYSICIAN] - 05/13/19 9:15 am Ricardo Barth MD [Primary Care Provider] - 04/29/19 11:15 am Ambulatory/Diagnostic Orders: Basic Metabolic Panel [LAB.AMB] Location: None Selected Complete Blood Count w/diff [LAB.AMB] Location: None Selected Patient Instructions/Handouts: Sepsis (GEN), Weakness (ED), How to Care for Your Midline Catheter (DC) Activity/Diet/Wound Care/Special Instructions: Glucometer /DM suppliesr required at discharge to monitor cbg for dx: IDDM - to be delivered to room prior to discharge Report to David Trinidad 3rd Floor Procedures tomorrow (04/29/19) at 2pm for your IV antibiotic infusion Diet: Consist. carb Diabetic education classes at Dr. Barth's Office Activity: Limited till follow-up
[2019-04-28 11:37] VITALS: BP 153/90; PULSE 96; TEMP 97.9
[2019-04-28 12:00] LABS: Glucose,Whole Blood 259 mg/dL (75-99)
== END 2019-04-28 15:53 | disposition home or self-care (01) | DRG 872 ==
LOC: EC 22:12 → 3NMEDONC 04-25 05:11 → 3SCARD 04-25 07:53 → OBSVTOIN 04-26 13:30
PROVIDERS: ADMIT Family Medicine; ATTEND Family Medicine
PROC: 05HF33Z Insertion of Infusion Device into Left Cephalic Vein, Percutaneous Approach (ICD-10-PCS; principal; 2019-04-28 14:00)
DX: A41.89 Other specified sepsis (principal); C79.51 Secondary malignant neoplasm of bone; N39.0 Urinary tract infection, site not specified; B96.89 Other specified bacterial agents as the cause of diseases classified elsewhere; C61 Malignant neoplasm of prostate; E11.65 Type 2 diabetes mellitus with hyperglycemia; E66.9 Obesity, unspecified; E78.5 Hyperlipidemia, unspecified; F12.90 Cannabis use, unspecified, uncomplicated; I10 Essential (primary) hypertension; F41.9 Anxiety disorder, unspecified; R79.89 Other specified abnormal findings of blood chemistry; N40.0 Benign prostatic hyperplasia without lower urinary tract symptoms; Z79.82 Long term (current) use of aspirin; Z79.899 Other long term (current) drug therapy; Z80.9 Family history of malignant neoplasm, unspecified; Z82.49 Family history of ischemic heart disease and other diseases of the circulatory system; Z85.46 Personal history of malignant neoplasm of prostate; Z86.14 Personal history of Methicillin resistant Staphylococcus aureus infection; Z87.442 Personal history of urinary calculi; Z87.891 Personal history of nicotine dependence; Z92.21 Personal history of antineoplastic chemotherapy; Z88.0 Allergy status to penicillin; Z90.89 Acquired absence of other organs; Z98.890 Other specified postprocedural states; Z83.79 Family history of other diseases of the digestive system
CPT/HCPCS: 36410; 36415; 71046; 76700; 76857; 76937; 80048; 80053; 81001; 83036; 83605; 84484; 85025; 85610; 85730; 87040; 87077; 87086; 87186; 93005; 93306; 96361; 96374; 99285

== ENCOUNTER 2020-03-29 10:06 | Emergency (ER) | payer MEDICARE ==
[2020-03-29 10:23] VITALS: BP 115/86; PULSE 88; RESP 18; TEMP 99.2
--- NOTE | 2020-03-29 10:52 | ED ---
General Adult HPI - General Chief complaint: Recheck/Abnormal Lab/Rx Stated complaint: port problems Time Seen by Provider: 03/29/20 10:24 Source: patient, RN notes reviewed, old records reviewed Mode of arrival: ambulatory Limitations: no limitations - History of Present Illness Initial comments: Patient is a 69-year-old male with a history of cancer or receiving treatments at [facility]. Patient reports that they accessed his port yesterday when they determined he was unable to receive chemotherapy and trial drugs because the cancer had spread Patient was then sent home. When that occurred they forgot to the access the patient's port. He states that last night he when he got home he realized after addressing that his port access was still there. He does not remember if they did flush it with heparin or not he requires assisted flushed with heparin today for further access in the future.Patient denies any other complaints at this time and just wants to have the port deaccessed. - Related Data Home Medications Medication Instructions Recorded Confirmed Tamsulosin HCl [Flomax] 0.4 mg PO HS 10/25/16 05/12/19 lisinopriL [Zestril] 20 mg PO HS 12/25/16 05/12/19 Abiraterone Acetate [Zytiga] 1,000 mg PO DAILY 02/14/18 05/12/19 Aspirin 81 mg PO DAILY 02/14/18 05/12/19 Atorvastatin [Lipitor] 20 mg PO HS 02/14/18 05/12/19 Cyclobenzaprine [Flexeril] 5 mg PO HS PRN 02/14/18 05/12/19 predniSONE 5 mg PO DAILY 02/14/18 05/12/19 Hydrocodone/Acetaminophen [[place] 1 tab PO BID PRN 08/31/18 05/12/19 10-325] Cetirizine HCl 10 mg PO HS 12/13/18 05/12/19 Docusate [Colace] 100 mg PO BID 03/08/19 05/12/19 Venlafaxine HCl [Effexor XR] 37.5 mg PO HS 03/08/19 05/12/19 Previous Rx's Medication Instructions Recorded INSULIN LISPRO (HumaLOG) [humaLOG] 0 unit SQ ACHS #1 vial 04/28/19 Insulin Detemir (Levemir) [Levemir] 30 unit SQ DAILY@0700 #1 syr 04/28/19 cefTRIAXone [Rocephin] 2 gm IVPB Q24HR #14 vial 04/28/19 Allergies Allergy/AdvReac Type Severity Reaction Status Date / Time Penicillins Allergy Unknown Verified 03/29/20 10:23 Childhood Review of Systems ROS Statement: Those systems with pertinent positive or pertinent negative responses have been documented in the HPI. ROS Other: All systems not noted in ROS Statement are negative. Past Medical History Past Medical History: Atrial Flutter, Cancer, Diabetes Mellitus, Hypertension, Prostate Disorder Additional Past Medical History / Comment(s): nephrolithiasis, BPH, chronic back pain, DDD, heniated discs ,03/15/16 RT THUMB ABCESS(MRSA) prostate cancer stage 4 with mets, diverticulosis. currently undergoing clinical trials through [facility], oral chemotherapy. history of possible heart attack (stress test returned abnormal recently) History of Any Multi-Drug Resistant Organisms: MRSA Date of last positivie culture/infection: 03/15/16 MDRO Source:: right thumb Past Surgical History: Tonsillectomy Additional Past Surgical History / Comment(s): colonoscopy with benign abraham ypectomies, TESTICLE SURGERY AT AGE 14, i&d/DEBRIDMENT OF RT THUMB ABCESS, PICC LINE SINCE REMOVED, bilateraly orchectomy, ureter stent, chest port placement Past Anesthesia/Blood Transfusion Reactions: No Reported Reaction Past Psychological History: Anxiety Smoking Status: Never smoker Past Alcohol Use History: None Reported Past Drug Use History: Marijuana - Past Family History Father Family Medical History: Cancer, Coronary Artery Disease (CAD) Additional Family Medical History / Comment(s): Father is 87 yrs old. Mother Family Medical History: Liver Disease Additional Family Medical History / Comment(s): Mother at 56 yrs of age from liver disease which pt believes was cirrhosis. General Exam - General Exam Comments Initial Comments: Pleasant 69-year-old male. No distress. Limitations: no limitations General appearance: alert, in no apparent distress Head exam: Present: atraumatic, normocephalic, normal inspection Eye exam: Present: normal appearance, PERRL, EOMI. Absent: scleral icterus, conjunctival injection, periorbital swelling ENT exam: Present: normal exam, mucous membranes moist Neck exam: Present: normal inspection Respiratory exam: Present: normal lung sounds bilaterally, other (Patient has reports on the right side of the chest with intact needle and saline lock attached to the skin at this time.). Absent: respiratory distress, wheezes, rales, rhonchi, stridor Cardiovascular Exam: Present: regular rate, normal rhythm, normal heart sounds. Absent: systolic murmur, diastolic murmur, rubs, gallop, clicks GI/Abdominal exam: Present: soft, normal bowel sounds. Absent: distended, tenderness, guarding, rebound, rigid Extremities exam: Present: normal inspection, full ROM, normal capillary refill. Absent: tenderness, pedal edema, joint swelling, calf tenderness Back exam: Present: normal inspection Neurological exam: Present: alert, oriented X3, CN II-XII intact Course Vital Signs 03/29/20 10:18 Temperature 99.2 F Pulse Rate 88 Respiratory 18 Rate Blood Pressure 115/86 O2 Sat by Pulse 97 Oximetry Medical Decision Making - Medical Decision Making Patient's a 69-year-old male presents for steroids today requesting to have his port accessed removed. He had this placed yesterday at [facility] and when he was told he cannot receive the trial therapy medication as the cancer spread he left and realized when he got home at the port access was not removed. At this time Patient does request that we do a flushed heparin at this time and the port was accessed without any complication. Patient tolerated procedure well and having the port accessed and advised follow-up with oncology. Discussed return parameters. Disposition Clinical Impression: Encounter for care related to vascular access port Disposition: HOME SELF-CARE Condition: Good Instructions (If sedation given, give patient instructions): Implanted Venous Access Port (DC) Additional Instructions: Follow-up with PCP and oncologist. Return to emergency department if any alarming signs or symptoms occur. Is patient prescribed a controlled substance at d/c from ED?: No Referrals: Ricardo Barth MD [Primary Care Provider] - 1-2 days Time of Disposition: 10:51
== END 2020-03-29 10:55 | disposition home or self-care (01) ==
LOC: EC 10:06
DX: Z45.2 Encounter for adjustment and management of vascular access device (principal); F41.9 Anxiety disorder, unspecified; C61 Malignant neoplasm of prostate; C79.9 Secondary malignant neoplasm of unspecified site; I10 Essential (primary) hypertension; Z86.14 Personal history of Methicillin resistant Staphylococcus aureus infection
CPT/HCPCS: 99283; 96374; J1642

== ENCOUNTER → 2021-05-09 | Outpatient (CLI) | payer MEDICARE ==
--- NOTE | 2021-05-09 16:12 | XR ---
Right ankle and right foot HISTORY: Pain, multiple falls, stage IV prostate carcinoma 3 views of the right foot and 3 views of the right ankle are submitted Degenerative changes present at the first metatarsophalangeal joint of the right foot. There is a singh ntar calcaneal spur present. There is mild soft tissue swelling. Some spurring present at the tibiota lar joint, intertarsal joints. IMPRESSION: No fracture or dislocation. Osteoarthritic changes are present. Plantar calcaneal spur.
== END | disposition home or self-care (01) ==
LOC: RADXRMAIN 14:38
PROVIDERS: ATTEND Family Medicine
DX: C61 Malignant neoplasm of prostate (principal); M19.071 Primary osteoarthritis, right ankle and foot; M77.31 Calcaneal spur, right foot; R29.6 Repeated falls

== ENCOUNTER 2022-08-11 08:32 | Emergency (ER) | payer MEDICARE ==
--- NOTE | 2022-08-11 08:50 | ED ---
General Adult HPI - General Source: patient <Fabrice Torres - Last Filed: 08/11/22 11:39> - General Source: RN notes reviewed, old records reviewed <Luis Alberto Chicas - Last Filed: 08/11/22 14:40> - General Stated complaint: dizziness, nausea Time Seen by Provider: 08/11/22 09:00 - History of Present Illness Initial comments: Patient seen for advanced triage purposes: 71 year old male presents to the ER for dizziness. Symptoms started this morning at 5 am, 4 hours ago. He couldn't focus and fell twice. He did not lose consciousness. He is on Coumadin. He did vomit once. He did check his sugar and it was high at 381. (Fabrice Torres) This is a 71-year-old male who presents emergency Department complaining of dizziness since he woke up this morning about 5 AM. Patient states he rolled out of bed and the whole room was spinning. Patient states she's not had this before. Patient denies headache patient denies numbness or weakness per patient states movement of the head makes it worse per patient denies any tinnitus patient denies any new deafness. Patient denies any palpitations chest pain difficulty breathing shortness of breath per patient denies any recent fever chills or cough per patient states the spinning this makes him sick to stomach and vomited multiple times. Patient denies any diarrhea. Patient denies any abdominal pain. (Luis Alberto Chicas) - Related Data Home Medications Medication Instructions Recorded Confirmed Tamsulosin HCl [Flomax] 0.4 mg PO HS 10/25/16 05/12/19 lisinopriL [Zestril] 20 mg PO HS 12/25/16 05/12/19 Abiraterone Acetate [Zytiga] 1,000 mg PO DAILY 02/14/18 05/12/19 Aspirin 81 mg PO DAILY 02/14/18 05/12/19 Atorvastatin [Lipitor] 20 mg PO HS 02/14/18 05/12/19 Cyclobenzaprine [Flexeril] 5 mg PO HS PRN 02/14/18 05/12/19 predniSONE 5 mg PO DAILY 02/14/18 05/12/19 Hydrocodone/Acetaminophen [[place] 1 tab PO BID PRN 08/31/18 05/12/19 10-325] Cetirizine HCl 10 mg PO HS 12/13/18 05/12/19 Docusate [Colace] 100 mg PO BID 03/08/19 05/12/19 Venlafaxine HCl [Effexor XR] 37.5 mg PO HS 03/08/19 05/12/19 Previous Rx's Medication Instructions Recorded INSULIN LISPRO (HumaLOG) [humaLOG] 0 unit SQ ACHS #1 vial 04/28/19 Insulin Detemir (Levemir) [Levemir] 30 unit SQ DAILY@0700 #1 syr 04/28/19 cefTRIAXone [Rocephin] 2 gm IVPB Q24HR #14 vial 04/28/19 Meclizine [Antivert] 25 mg PO TID #20 tab 08/11/22 Allergies Allergy/AdvReac Type Severity Reaction Status Date / Time Penicillins Allergy Unknown Verified 08/11/22 08:49 Childhood Review of Systems ROS Other: All systems not noted in ROS Statement are negative. <Fabrice Torres - Last Filed: 08/11/22 11:39> ROS Other: All systems not noted in ROS Statement are negative. <Luis Alberto Chicas - Last Filed: 08/11/22 14:40> ROS Statement: Those systems with pertinent positive or pertinent negative responses have been documented in the HPI. Past Medical History Past Medical History: Atrial Flutter, Cancer, Diabetes Mellitus, Hypertension, Prostate Disorder Additional Past Medical History / Comment(s): nephrolithiasis, BPH, chronic back pain, DDD, heniated discs ,03/15/16 RT THUMB ABCESS(MRSA) prostate cancer stage 4 with mets, diverticulosis. currently undergoing clinical trials through [facility], oral chemotherapy. history of possible heart attack (stress test returned abnormal recently) History of Any Multi-Drug Resistant Organisms: MRSA Date of last positivie culture/infection: 03/15/16 MDRO Source:: right thumb Past Surgical History: Tonsillectomy Additional Past Surgical History / Comment(s): colonoscopy with benign polypectomies, TESTICLE SURGERY AT AGE 14, i&d/DEBRIDMENT OF RT THUMB ABCESS, PICC LINE SINCE REMOVED, bilateraly orchectomy, ureter stent, chest port placement Past Anesthesia/Blood Transfusion Reactions: No Reported Reaction Past Psychological History: Anxiety Smoking Status: Never smoker Past Alcohol Use History: None Reported Past Drug Use History: Marijuana - Past Family History Father Family Medical History: Cancer, Coronary Artery Disease (CAD) Additional Family Medical History / Comment(s): Father is 87 yrs old. Mother Family Medical History: Liver Disease Additional Family Medical History / Comment(s): Mother at 56 yrs of age from liver disease which pt believes was cirrhosis. <TorresFabrice - Last Filed: 08/11/22 11:39> General Exam <Luis Alberto Chicas - Last Filed: 08/11/22 14:40> - General Exam Comments Initial Comments: GENERAL: Patient is well-developed and well-nourished. Patient is nontoxic and well- hydrated and is in mild distress. ENT: Neck is soft and supple. No significant lymphadenopathy is noted. Oropharynx is clear. Moist mucous membranes. Neck has full range of motion without el iciting any pain. EYES: The sclera were anicteric and conjunctiva were pink and moist. Extraocular movements were intact and pupils were equal round and reactive to light. Patient has significant horizontal nystatin is looking to the right PULMONARY: Unlabored respirations. Good breath sounds bilaterally. No audible rales rhonchi or wheezing was noted. CARDIOVASCULAR: There is a regular rate and rhythm without any murmurs gallops or rubs. ABDOMEN: Soft and nontender with normal bowel sounds. SKIN: Skin is clear with no lesions or rashes and otherwise unremarkable. NEUROLOGIC: Patient is alert and oriented x3. Cranial nerves II through XII are grossly intact. Motor and sensory are also intact. Normal speech, volume and content. Finger-nose testing bilaterally was equal and normal. MUSCULOSKELETAL: Normal extremities with adequate strength and full range of motion. No lower extremity swelling or edema. No calf tenderness. LYMPHATICS: No significant lymphadenopathy is noted PSYCHIATRIC: Normal psychiatric evaluation. (Luis Alberto Chicas) Course Vital Signs 08/11/22 08/11/22 08/11/22 08:49 12:30 13:26 Temperature 98 F Pulse Rate 91 88 86 Respiratory 16 17 18 Rate Blood Pressure 187/108 172/105 173/103 O2 Sat by Pulse 95 98 97 Oximetry 08/11/22 14:24 Temperature 98.2 F Pulse Rate 91 Respiratory 18 Rate Blood Pressure 160/96 O2 Sat by Pulse 99 Oximetry Medical Decision Making - Lab Data Result diagrams: 08/11/22 13:03 08/11/22 13:03 <Luis Alberto Chicas - Last Filed: 08/11/22 14:40> - Medical Decision Making This EKG was interpreted by me. EKG shows a sinus rhythm at [address] interval is 185 QRS is 102 QT interval 374 QTC is 417. Patient's EKG shows no ST segment elevation or depression. Was pt. sent in by a medical professional or institution (, PA, [employer], urgent care, hospital, or snf...) When possible be specific @ -[No] Did you speak to anyone other than the patient for history (EMS, parent, family, police, friend...)? What history was obtained from this source @ -EMS Did you review nursing and triage notes (agree or disagree)? Why? @ -[I reviewed and agree with nursing and triage notes] Were old charts reviewed (outside hosp., previous admission, EMS record, old EKG, old radiological studies, urgent care reports/EKG's, snf records)? Report findings @ -[No old charts were reviewed] Differential Diagnosis (chest pain, altered mental status, abdominal pain women, abdominal pain men, vaginal bleeding, weakness, fever, dyspnea, syncope, headache, dizziness, GI bleed, back pain, seizure, CVA, palpatations, mental health)? @ -Differential Dizziness: Benign paroxysmal positional Vertigo, Menieres disease, otitis media, acoustic neuroma, vertebrobasilar insufficiency, cerebellar stroke, encephalitis, hypovolemic, arrhythmia, coronary artery syndrome, anemia, this is not meant to be an all-inclusive list EKG interpreted by me (3pts min.). @ -[As above] X-rays interpreted by me (1pt min.). @ -Chest x-ray shows no acute abnormality CT interpreted by me (1pt min.). @ -[None done] U/S interpreted by me (1pt. min.). @ -[None done] What testing was considered but not performed or refused? (CT, X-rays, U/S, labs)? Why? @ -[None] What meds were considered but not given or refused? Why? @ -[None] Did you discuss the management of the patient with other professionals (professionals i.e. , DARYL, [employer], lab, RT, psych nurse, sexual assault social worker, account support specialist, teacher, chief sales officer, caser shoe parts)? Give summary @ -[No] Was smoking cessation discussed for >3mins.? @ -[No] Was critical care preformed (if so, how long)? @ -[No] Were there social determinants of health that impacted care today? How? (Homelessness, low income, unemployed, alcoholism, drug addiction, transportation, low edu. Level, literacy, decrease access to med. care, penitentiary, rehab)? @ -[No] Was there de-escalation of care discussed even if they declined (Discuss DNR or withdrawal of care, Hospice)? DNR status @ -[No] What co-morbidities impacted this encounter? (DM, HTN, Smoking, COPD, CAD, Cancer, CVA, ARF, Chemo, Hep., AIDS, mental health diagnosis, sleep apnea, morbid obesity)? @ -[None] Was patient admitted / discharged? Hospital course, mention meds given and route, prescriptions, significant lab abnormalities, going to OR and other perti nent info. @ -Patient will be discharged home. Patient received Antivert in the hospital. I went back in and reevaluated the patient he was feeling better. Patient states he was able to ambulate around without the walker that we have for him. Patient states he thought he would be able to go home and slowly get around his home and hold on to using her cane to the wall. Patient states he sits still on stairs at one spot he is much improved. Undiagnosed new problem with uncertain prognosis? @ -[No] Drug Therapy requiring intensive monitoring for toxicity (Heparin, Nitro, Insulin, Cardizem)? @ -[No] Were any procedures done? @ -[No] Diagnosis/symptom? @ -Vertigo Acute, or Chronic, or Acute on Chronic? @ -Acute Uncomplicated (without systemic symptoms) or Complicated (systemic symptoms)? @ -Uncomplicated Side effects of treatment? @ -[No] Exacerbation, Progression, or Severe Exacerbation? @ -[No] Poses a threat to life or bodily function? How? (Chest pain, USA, MA, pneumonia, PE, COPD, DKA, ARF, appy, cholecystitis, CVA, Diverticulitis, Homicidal, Suicidal, threat to staff... and all critical care pts) @ -No Diagnosis/symptom? @ -Hyperglycemia Acute, or Chronic, or Acute on Chronic? @ -Acute Uncomplicated (without systemic symptoms) or Complicated (systemic symptoms)? @ -Uncomplicated Side effects of treatment? @ -[none] Exacerbation, Progression, or Severe Exacerbation] @ -[no] Poses a threat to life or bodily function? @ -[no] (Luis Alberto Chicas) - Lab Data Lab Results 08/11/22 08/11/22 08/11/22 Range/Units 13:03 13:03 13:03 WBC 7.3 (3.8-10.6) k/uL RBC 4.97 (4.30-5.90) m/uL Hgb 16.6 (13.0-17.5) gm/dL Hct 47.0 (39.0-53.0) % MCV 94.7 (80.0-100.0) fL MCH 33.4 (25.0-35.0) pg MCHC 35.2 (31.0-37.0) g/dL RDW 12.7 (11.5-15.5) % Plt Count 192 (150-450) k/uL MPV 8.5 Neutrophils % 74 % Lymphocytes % 20 % Monocytes % 3 % Eosinophils % 1 % Basophils % 1 % Neutrophils # 5.4 (1.3-7.7) k/uL Lymphocytes # 1.4 (1.0-4.8) k/uL Monocytes # 0.2 (0-1.0) k/uL Eosinophils # 0.1 (0-0.7) k/uL Basophils # 0.0 (0-0.2) k/uL PT 14.6 H (9.0-12.0) sec INR 1.5 H (<1.2) APTT 27.4 (22.0-30.0) sec Sodium 137 (137-145) mmol/L Potassium 4.5 (3.5-5.1) mmol/L Chloride 100 (98-107) mmol/L Carbon Dioxide 26 (22-30) mmol/L Anion Gap 11 mmol/L BUN 12 (9-20) mg/dL Creatinine 0.64 L (0.66-1.25) mg/dL Est GFR (CKD-EPI)AfAm >90 (>60 ml/min/1.73 sqM) Est GFR (CKD-EPI)NonAf >90 (>60 ml/min/1.73 sqM) Glucose 274 H (74-99) mg/dL Calcium 9.5 (8.4-10.2) mg/dL Magnesium 1.7 (1.6-2.3) mg/dL Total Bilirubin 0.8 (0.2-1.3) mg/dL AST 23 (17-59) U/L ALT 30 (4-49) U/L Alkaline Phosphatase 127 H (38-126) U/L Troponin I (0.000-0.034) ng/mL Total Protein 8.1 (6.3-8.2) g/dL Albumin 4.7 (3.5-5.0) g/dL Urine Color Urine Appearance (Clear) Urine pH (5.0-8.0) Ur Specific [place] (1.001-1.035) Urine Protein (Negative) Urine Glucose (UA) (Negative) Urine Ketones (Negative) Urine Blood (Negative) Urine Nitrite (Negative) Urine Bilirubin (Negative) Urine Urobilinogen (<2.0) mg/dL Ur Leukocyte Esterase (Negative) 08/11/22 08/11/22 Range/Units 13:03 13:03 WBC (3.8-10.6) k/uL RBC (4.30-5.90) m/uL Hgb (13.0-17.5) gm/dL Hct (39.0-53.0) % MCV (80.0-100.0) fL MCH (25.0-35.0) pg MCHC (31.0-37.0) g/dL RDW (11.5-15.5) % Plt Count (150-450) k/uL MPV Neutrophils % % Lymphocytes % % Monocytes % % Eosinophils % % Basophils % % Neutrophils # (1.3-7.7) k/uL Lymphocytes # (1.0-4.8) k/uL Monocytes # (0-1.0) k/uL Eosinophils # (0-0.7) k/uL Basophils # (0-0.2) k/uL PT (9.0-12.0) sec INR (<1.2) APTT (22.0-30.0) sec Sodium (137-145) mmol/L Potassium (3.5-5.1) mmol/L Chloride (98-107) mmol/L Carbon Dioxide (22-30) mmol/L Anion Gap mmol/L BUN (9-20) mg/dL Creatinine (0.66-1.25) mg/dL Est GFR (CKD-EPI)AfAm (>60 ml/min/1.73 sqM) Est GFR (CKD-EPI)NonAf (>60 ml/min/1.73 sqM) Glucose (74-99) mg/dL Calcium (8.4-10.2) mg/dL Magnesium (1.6-2.3) mg/dL Total Bilirubin (0.2-1.3) mg/dL AST (17-59) U/L ALT (4-49) U/L Alkaline Phosphatase (38-126) U/L Troponin I <0.012 (0.000-0.034) ng/mL Total Protein (6.3-8.2) g/dL Albumin (3.5-5.0) g/dL Urine Color Light Yellow Urine Appearance Clear (Clear) Urine pH 7.0 (5.0-8.0) Ur Specific [place] 1.023 (1.001-1.035) Urine Protein Trace H (Negative) Urine Glucose (UA) 4+ H (Negative) Urine Ketones Trace H (Negative) Urine Blood Negative (Negative) Urine Nitrite Negative (Negative) Urine Bilirubin Negative (Negative) Urine Urobilinogen <2.0 (<2.0) mg/dL Ur Leukocyte Esterase Negative (Negative) Disposition <Fabrice Torres - Last Filed: 08/11/22 11:39> Is patient prescribed a controlled substance at d/c from ED?: No Time of Disposition: 14:25 <Luis Alberto Chicas - Last Filed: 08/11/22 14:40> Clinical Impression: Vertigo, Hyperglycemia Disposition: HOME SELF-CARE Instructions (If sedation given, give patient instructions): Vertigo (ED) Additional Instructions: Patient is continue monitoring his blood sugar and taking his hyperglycemic medications Prescriptions: Meclizine [Antivert] 25 mg PO TID #20 tab Referrals: Ricardo Barth MD [Primary Care Provider] - 1-2 days
--- NOTE | 2022-08-11 11:23 | XR ---
EXAMINATION TYPE: XR chest 2V DATE OF EXAM: 08/11/2022 COMPARISON: Chest x-ray April 24, 2019 HISTORY: Chest pain. TECHNIQUE: Frontal and lateral views of the chest are obtained. FINDINGS: Low lung volumes are redemonstrated. There is no suspicious focal air space opacity, pleura l effusion, or pneumothorax seen. The cardiac silhouette size is within normal limits. The osseous structures are intact. IMPRESSION: No acute process. No significant change from prior.
[2022-08-11] MEDS ORDERED: METOCLOPRAMIDE 5 MG/ML 2 ML VIAL IVP STA (11:35)
[2022-08-11] MEDS ORDERED: MECLIZINE 25 MG TAB PO STA (11:35)
--- NOTE | 2022-08-11 13:08 | CT ---
EXAMINATION TYPE: CT brain wo con DATE OF EXAM: 08/11/2022 HISTORY: Dizziness CT DLP: 1188.4 mGycm. Automated Exposure Control for Dose Reduction was Utilized. TECHNIQUE: CT scan of the head is performed without contrast. COMPARISON: CT brain October 25, 2016. FINDINGS: There is no acute intracranial hemorrhage or midline shift identified. There is mild diff use ventricular and sulcal prominence consistent with diffuse age-related cerebral atrophy. There is mild low-attenuation in the periventricular white matter consistent with chronic small vessel ischem ic change. No suspicious opacification of the mastoid air cells bilaterally. The globes are intact a nd the visualized sinuses are clear. IMPRESSION: No acute intracranial hemorrhage or midline shift. There is mild diffuse age-related ce rebral atrophy and chronic small vessel ischemic change redemonstrated. No significant change from p rior.
[2022-08-11 13:15] LABS: Appearance,Urine Clear (Clear); Bilirubin,Urine Negative (Negative); Blood,Urine Negative (Negative); Color,Urine Light Yellow; Glucose,Urine (UA) 4+ (Negative); Ketones,Urine Trace (Negative); Leukocyte Esterase,Urine Negative (Negative); Nitrite,Urine Negative (Negative); Protein,Urine Trace (Negative); Specific Gravity,Urine 1.023 (1.001-1.035); Urobilinogen,Urine <2.0 mg/dL (<2.0)
[2022-08-11 13:26] VITALS: RESP 18
[2022-08-11 13:29] LABS: Basophils % (A) 1 %; Eosinophils # (A) 0.1 k/uL (0-0.7); Eosinophils % (A) 1 %; HGB 16.6 gm/dL (13.0-17.5); Lymphocytes # (A) 1.4 k/uL (1.0-4.8); Lymphocytes % (A) 20 %; MCH 33.4 pg (25.0-35.0); MCHC 35.2 g/dL (31.0-37.0); MCV 94.7 fL (80.0-100.0); Mean Platelet Volume 8.5; Monocytes # (A) 0.2 k/uL (0-1.0); Monocytes % (A) 3 %; Neutrophils # (A) 5.4 k/uL (1.3-7.7); Neutrophils % (A) 74 %; Platelet Count 192 k/uL (150-450); RBC 4.97 m/uL (4.30-5.90); RDW 12.7 % (11.5-15.5); WBC 7.3 k/uL (3.8-10.6)
[2022-08-11 13:38] LABS: INR 1.5 (<1.2); Partial Thromboplastin Time 27.4 sec (22.0-30.0); Prothrombin Time 14.6 sec (9.0-12.0)
[2022-08-11 13:40] LABS: ALT 30 U/L (4-49); AST 23 U/L (17-59); African American GFR (CKD) >90 (>60 ml/min/1.73 sqM); Albumin 4.7 g/dL (3.5-5.0); Alkaline Phosphatase 127 U/L (38-126); Anion Gap 11 mmol/L; Blood Urea Nitrogen 12 mg/dL (9-20); Calcium 9.5 mg/dL (8.4-10.2); Carbon Dioxide 26 mmol/L (22-30); Chloride 100 mmol/L (98-107); Glucose 274 mg/dL (74-99); Magnesium 1.7 mg/dL (1.6-2.3); Non-African American GFR(CKD) >90 (>60 ml/min/1.73 sqM); Potassium 4.5 mmol/L (3.5-5.1); Sodium 137 mmol/L (137-145); Total Bilirubin 0.8 mg/dL (0.2-1.3); Total Protein 8.1 g/dL (6.3-8.2)
[2022-08-11 14:24] VITALS: BP 160/96; PULSE 91
[2022-08-11 14:30] VITALS: TEMP 98.2
== END 2022-08-11 14:51 | disposition home or self-care (01) ==
LOC: EC 08:32
DX: R42 Dizziness and giddiness (principal); E11.65 Type 2 diabetes mellitus with hyperglycemia; I67.82 Cerebral ischemia; I10 Essential (primary) hypertension; F41.9 Anxiety disorder, unspecified; F12.90 Cannabis use, unspecified, uncomplicated; Z79.82 Long term (current) use of aspirin; Z79.899 Other long term (current) drug therapy; Z88.0 Allergy status to penicillin
CPT/HCPCS: 36415; 93005; 80053; 83735; 84484; 85025; 85610; 85730; 81003; 71046; 70450; 99284; 96374; J2765